=== PATIENT | male | born 1980 | race Caucasian/White ===

== ENCOUNTER 2017-05-15 15:02 | Inpatient (IN) | payer OTHER ==
[2017-05-15] MEDS ORDERED: NALOXONE 0.4 MG/ML 1 ML VIAL IV PRN (15:14)
[2017-05-15] MEDS ORDERED: LIDOCAINE 2% INJ 20 MG/ML (20 ML MDV) ONE (15:14)
[2017-05-15] MEDS ORDERED: HEPARIN SODIUM,PORCINE 5,000 UNIT/ML 1 ML VIAL IV STA (15:15)
[2017-05-15] MEDS ORDERED: ATORVASTATIN 80 MG TAB PO STA (15:20)
--- NOTE | 2017-05-15 15:21 | ED ---
General Adult HPI - General Chief complaint: Chest Pain Stated complaint: STEMI Time Seen by Provider: 05/15/17 15:12 Source: patient, EMS Mode of arrival: EMS Limitations: no limitations - History of Present Illness Initial comments: 37-year-old male presenting with chest pressure and diaphoresis. Prehospital EKG, concerning for ST segment elevated [place]. Patient is somewhat lethargic on initial questioning. He denies any vomiting. Denies abdominal pain. He reported EMS he did have some right shoulder pain. No cough. No fever or chills. Pain began approximately 30 minutes prior to arrival. - Related Data Home Medications Medication Instructions Recorded Confirmed Cholecalciferol [Vitamin D3] 5,000 unit PO DAILY 05/15/17 05/15/17 Cyanocobalamin [Vitamin B-12 1,000 mcg SQ WEEKLY 05/15/17 05/15/17 Injection] Allergies Allergy/AdvReac Type Severity Reaction Status Date / Time quetiapine [From Seroquel] Allergy Unknown Verified 05/15/17 15:14 Review of Systems ROS Statement: Those systems with pertinent positive or pertinent negative responses have been documented in the HPI. ROS Other: All systems not noted in ROS Statement are negative. Past Medical History Past Medical History: Unable to Obtain History of Any Multi-Drug Resistant Organisms: None Reported Past Surgical History: Unable to Obtain Past Psychological History: Bipolar Smoking Status: Current every day smoker Past Alcohol Use History: Unable to Obtain Past Drug Use History: Unable to Obtain General Exam Limitations: no limitations General appearance: alert, lethargic Head exam: Present: atraumatic, normocephalic Eye exam: Present: normal appearance, PERRL ENT exam: Present: normal exam Neck exam: Present: normal inspection. Absent: tenderness, meningismus Respiratory exam: Present: normal lung sounds bilaterally. Absent: respiratory distress, wheezes Cardiovascular Exam: Present: normal rhythm, bradycardia GI/Abdominal exam: Present: soft. Absent: distended, tenderness Extremities exam: Present: normal inspection, full ROM Neurological exam: Present: alert, oriented X3, CN II-XII intact. Absent: motor sensory deficit Psychiatric exam: Present: flat affect Skin exam: Present: warm, dry, intact. Absent: cyanosis, diaphoretic Course Vital Signs 05/15/17 15:06 Temperature 97.1 F L Pulse Rate 52 L Respiratory 18 Rate Blood Pressure 132/70 O2 Sat by Pulse 100 Oximetry EKG Findings - EKG Comments: EKG Findings:: EKG shows sinus bradycardia, ventricular rate of 48, NJ interval 154, QRS duration 92, QTC 438, there is ST segment elevation in 23 and aVF as well as aVL and some ST segment elevation in the lateral precordium. Medical Decision Making - Medical Decision Making 37-year-old male presenting with chest pressure, EKG shows ST segment elevation , this may be early repolarization all the patient is having ongoing chest pressure. Patient does state he has previous WA. He is evaluated by Dr. Sommer in the emergency department. Given the ongoing pain, patient will be taken to the [facility] for coronary angiography. Diagnosis: ST segment elevation WA Disposition Clinical Impression: ST elevation myocardial infarction (STEMI) Disposition: ADMITTED IP TO THIS HOSP Condition: Serious Referrals: Cookie Cordova MD [Primary Care Provider] - 1-2 days Decision to Admit Reason: Admit from EC Decision Date: 05/15/17 Decision Time: 15:21
[2017-05-15] MEDS ORDERED: MIDAZOLAM 2 MG/2 ML VIAL ONE (15:22)
[2017-05-15] MEDS ORDERED: HEPARIN SODIUM 1,000 UN/ML (10ML VL) ONE (15:22)
[2017-05-15] MEDS ORDERED: fentaNYL (PF) 50 MCG/ML 2 ML AMP ONE (15:22)
[2017-05-15] MEDS ORDERED: VERAPAMIL 2.5 MG/ML 2 ML AMP ONE (15:22)
[2017-05-15 15:27] LABS: HCT 44.8 % (39.0-53.0); HGB 15.5 gm/dL (13.0-17.5); MCH 29.2 pg (25.0-35.0); MCHC 34.6 g/dL (31.0-37.0); MCV 84.2 fL (80.0-100.0); Mean Platelet Volume 7.3; Platelet Count 295 k/uL (150-450); RBC 5.32 m/uL (4.30-5.90); RDW 13.1 % (11.5-15.5); WBC 8.2 k/uL (3.8-10.6)
--- NOTE | 2017-05-15 15:27 | XR ---
EXAMINATION TYPE: XR chest 1V portable DATE OF EXAM: 05/15/2017 COMPARISON: NONE HISTORY: chest pain TECHNIQUE: Single frontal view of the chest is obtained. FINDINGS: There is no focal air space opacity, pleural effusion, or pneumothorax seen. The cardiac silhouette size is within normal limits. The osseous structures are intact. IMPRESSION: No acute process.
[2017-05-15 15:32] LABS: ALT 30 U/L (21-72); AST 22 U/L (17-59); Alkaline Phosphatase 70 U/L (38-126); Anion Gap 9 mmol/L; Blood Urea Nitrogen 14 mg/dL (9-20); Calcium 9.2 mg/dL (8.4-10.2); Carbon Dioxide 25 mmol/L (22-30); Chloride 107 mmol/L (98-107); Glucose 89 mg/dL (74-99); Partial Thromboplastin Time 22.4 sec (22.0-30.0); Potassium 4.3 mmol/L (3.5-5.1); Prothrombin Time 9.9 sec (9.0-12.0); Sodium 141 mmol/L (137-145); Total Bilirubin 0.9 mg/dL (0.2-1.3); Total Protein 6.5 g/dL (6.3-8.2)
[2017-05-15] MEDS ORDERED: MIDAZOLAM 2 MG/2 ML VIAL IVP ONE (15:38)
[2017-05-15] MEDS: fentaNYL (PF) 50 MCG/ML 2 ML AMP IVP ONE ×2 (15:39→15:50)
[2017-05-15] MEDS ORDERED: LIDOCAINE 2% INJ 20 MG/ML SQ ONE (15:39)
[2017-05-15] MEDS ORDERED: VERAPAMIL SYRINGE (5 MG/10 ML) INTRAARTER ONE (15:41)
[2017-05-15 15:50] LABS: Creatine Kinase 152 U/L (55-170)
[2017-05-15] MEDS ORDERED: IOHEXOL 350 MG/ML 125ML BOTTLE INJ ONE (15:52)
[2017-05-15] MEDS ORDERED: SODIUM CHLORIDE 0.9% 1,000 ML IV ONE (15:53)
[2017-05-15] MEDS ORDERED: RX INFO: IV CONTRAST WAS GIVEN 1 EACH MISC MISCELLANE PRN (15:58)
[2017-05-15] MEDS ORDERED: SODIUM CHLORIDE 0.9% 1,000 ML IV SCH (16:00)
[2017-05-15 16:01] LABS: Creatine Kinase MB 0.8 ng/mL (0.0-2.4); Troponin I <0.012 ng/mL (0.000-0.034)
--- NOTE | 2017-05-15 17:04 | CC ---
CARDIAC CATHETERIZATION REPORT DATE OF SERVICE: May 15, 2017 PERFORMING PHYSICIAN: Jamir Winters MD, it security administrator. PROCEDURE PERFORMED: 1. Selective right and left coronary angiogram. 2. Left heart catheterization. INDICATION: This is a pleasant 37-year-old gentleman who presented to the hospital with chest discomfort and EKG concerning for acute inferior ST-elevation myocardial infarction. He was seen and evaluated by Dr. Sommer who recommended an emergent heart catheterization. APPROACH: Right radial artery. COMPLICATION: None. LEVEL OF SEDATION: PROCEDURE DESCRIPTION: After obtaining an informed consent, the patient was brought to the cardiac geophysical laboratory supervisor. The right radial artery was cannulated using micropuncture technique, the micropuncture wire passed easily, then I placed a 6-Icelandic sheath in the right radial artery. I did give the patient 2 mg of verapamil IA and 10,000 units of heparin IV. After that, I did selective right and left coronary angiogram using JR4 and JL3.5 catheters. After that I did left heart catheterization using the JL4 which flipped into the LV then I did pullback across aortic valve. The procedure was completed without any complication. SELECTIVE CORONARY ANGIOGRAM: 1. The RCA is a large caliber vessel and it is a dominant vessel. The RCA is angiographically normal. It bifurcates distally into PDA and PLV branches both are angiographically normal. 2. The left main is angiographically normal it bifurcates into the left circumflex and left anterior descending artery. 3. The left circumflex is a large caliber vessel and it is a nondominant vessel. The left circumflex is angiographically normal. In the proximal portion it gives rise into a large OM branch which seems to be angiographically normal. 4. The LAD is angiographically normal. Gives rise into multiple diagonal branches seems to be angiographically normal. HEMODYNAMIC: The left ventricular end-diastolic pressure was about 14 mmHg and no gradient was identified across the aortic valve. CONCLUSION: 1. Normal coronary angiogram. 2. Normal left ventricular end-diastolic pressure. POSTPROCEDURE MANAGEMENT: Medical treatment and follow up with the patient. MMODL / IJN: [id number] /
[2017-05-15] MEDS: ACETAMINOPHEN TAB 325 MG TAB PO PRN (18:00)
--- NOTE | 2017-05-15 21:25 | CONS ---
CONSULTATION A 37-year-old male who was brought in because he was complaining of pressure-like sensation in the chest and nausea and sweating. He was diaphoretic. The pre-hospital ECG showed ST elevations inferolaterally. When he came in, he was still complaining of pressure sensation in the chest and he was taken to the director of labor relations. PAST HISTORY: No diabetes, hypertension, dyslipidemia. SOCIAL HISTORY: He has a history of smoking in the past and he stopped about a year back. MEDICATION LIST: 1. No cardiac medications. 2. Vitamin D3 and. 3. Vitamin B. ALLERGIES: To SEROQUEL. REVIEW OF SYSTEMS: No fever, chills or rigors. No cough or expectoration. No nausea, vomiting or diarrhea, hematuria or dysuria. No strokes, seizures or skin lesions. No musculoskeletal complaints. PAST PSYCHOLOGICAL HISTORY: He has bipolar disorder. EXAMINATION: He is afebrile at 97.1 degrees Fahrenheit, pulse rate in the 50s, blood pressure 132/70 mmHg. Head and neck is normal. Heart sounds normal. Lungs are clear to auscultation. Extremities are warm. No edema. IMPRESSION: 1. Chest pressure associated with diaphoresis. 2. ST elevations noted inferolaterally. 3. This could represent inferolateral myocardial infarction versus early repolarization abnormality. We do not have an old ECG. The patient was complaining of symptoms and therefore the decision made to proceed with coronary angiography to delineate the epicardial coronary anatomy. Dr. Winters was called in for an angiogram. The patient agreed. MMODL / IJN: [id number] /
[2017-05-15 22:24] VITALS: BMI 31.6
--- NOTE | 2017-05-15 23:47 | P.HPIM ---
History of Present Illness H&P Date: 05/15/17 Chief Complaint: Chest pain Patient is a 37-year-old male with a known history of hypertension, hyperlipidemia came to ER with complaints of chest pressure associated with diaphoresis started approximately 30 minutes prior to arrival. Denied any radiation. He reported to EMS that he did have some right shoulder pain. No nausea vomiting or abdominal pain. Patient was distressed when he came to ER. EKG showed inferior leads ST elevation. Cardiology has been consulted and notified. Patient was immediately taken to petroleum refinery laborer. Troponin 1 negative Chest x-ray showed no acute cardio pulmonary process Review of Systems Complete review of systems could not be apparent from the patient. Past Medical History Past Medical History: Unable to Obtain History of Any Multi-Drug Resistant Organisms: None Reported Past Surgical History: Unable to Obtain Past Psychological History: Bipolar Smoking Status: Current every day smoker Past Alcohol Use History: Unable to Obtain Past Drug Use History: Unable to Obtain Medications and Allergies Home Medications Medication Instructions Recorded Confirmed Type Cholecalciferol [Vitamin D3] 5,000 unit PO DAILY 05/15/17 05/15/17 History Cyanocobalamin [Vitamin B-12 1,000 mcg SQ WEEKLY 05/15/17 05/15/17 History Injection] Allergies Allergy/AdvReac Type Severity Reaction Status Date / Time quetiapine [From Seroquel] Allergy Unknown Verified 05/15/17 15:14 Physical Exam Vitals: Vital Signs Temp Pulse Pulse Pulse Resp BP BP 05/15/17 18:43 97.2 F L 62 16 108/75 05/15/17 18:29 55 L 18 113/59 05/15/17 18:15 54 L 18 111/60 05/15/17 17:45 58 L 18 114/70 05/15/17 17:15 66 18 104/70 05/15/17 17:00 46 L 18 108/65 05/15/17 16:45 56 L 18 112/72 05/15/17 16:30 52 L 18 105/64 05/15/17 16:15 98.0 F 52 L 18 117/69 05/15/17 15:24 57 L 18 130/74 05/15/17 15:20 53 L 05/15/17 15:15 53 L 18 123/67 05/15/17 15:06 97.1 F L 52 L 18 132/70 Pulse Ox 05/15/17 18:43 97 05/15/17 18:29 99 05/15/17 18:15 99 05/15/17 17:45 99 05/15/17 17:15 99 05/15/17 17:00 99 05/15/17 16:45 99 05/15/17 16:30 99 05/15/17 16:15 99 05/15/17 15:24 99 05/15/17 15:20 05/15/17 15:15 99 05/15/17 15:06 100 Intake and Output 05/15/17 05/15/17 05/15/17 06:59 14:59 22:59 Intake Total 200 Balance 200 Intake: IV 200 Sodium Chloride 0.9% 1, 100 000 ml @ 100 mls/hr IV . Q10H [facility] Rx#:[id number] Other: Weight 108.726 kg Patient Weight 05/16/17 06:59 Weight 108.726 kg PHYSICAL EXAMINATION: Patient is lying in the bed comfortably, mild distress, awake alert and oriented.. HEENT: Normocephalic. Neck is supple. Pupils reactive. Nostrils clear. Oral cavity is moist. Ears reveal no drainage. Neck reveals no JVD, carotid bruits, or thyromegaly. CHEST EXAMINATION: Trachea is central. Symmetrical expansion. Lung carter clear to auscultation and percussion. CARDIAC: Normal S1, S2 with no gallops. No murmurs ABDOMEN: Soft. Bowel sounds normal. No organomegaly. No abdominal bruits. Extremities: reveal no edema. No clubbing or cyanosis Neurologically awake, alert, oriented x3 with well-coordinated movements. No focal deficits noted Skin: No rash or skin lesions. Diaphoretic and clammy Psychiatric: Coperative. Could not be assessed completely Musculoskeletal: No joint swelling or deformity. Normal range of motion. Results CBC & Chem 7: 05/15/17 15:14 05/15/17 15:14 Assessment and Plan Assessment: Acute ST elevated [place] with ST segment elevated and the inferior leads Hypertension Hyperlipidemia History of bipolar disorder Plan: Patient was given aspirin and statin while in the ER. Continue the pain management with morphine and oxygen therapy. Patient was taken to cardiac catheterization. Further recommendations based on the findings and clinical course. Time with Patient: Greater than 30
[2017-05-16] MEDS: ACETAMINOPHEN TAB 325 MG TAB PO PRN (07:52)
[2017-05-16 08:26] VITALS: TEMP 97.6
--- NOTE | 2017-05-16 11:10 | P.PN ---
Subjective Patient is doing well. No chest discomfort no dizziness lightheadedness no palpitations. He underwent coronary angiography via the right radial arterial without. And circulation within normal limits Afebrile 97.6F, pulse rate in the 50s respirations normal blood pressure 119/ 73 mmHg Breath sounds are normal bilaterally No rhonchi no crackles Heart sounds S1 and S2 are normal no murmurs or gallops no rub Abdomen soft nontender Extremities warm no edema White count normal hemoglobin normal electrolytes normal troponin normal MD and creatinine normal Test x-ray normal Impression Patient admitted with chest pressure and diaphoresis and twelve-lead ECG showed ST elevation inferolaterally. Normal cardiac angiogram Therefore This ECG represents a normal variant, early repolarization abnormality and does not represent an acute myocardial infarction Circulation within normal limits in the right upper extremity. From a cardiac standpoint the patient will be discharged home Objective - Vital Signs Vital signs: Vital Signs Temp 97.6 F 05/16/17 08:00 Pulse 48 L 05/16/17 08:00 Resp 14 05/16/17 08:00 BP 119/73 05/16/17 08:00 Pulse Ox 97 05/16/17 08:00 Intake & Output 05/15/17 05/16/17 05/16/17 18:59 06:59 18:59 Intake Total 200 400 120 Balance 200 400 120 Weight 108.726 kg 106 kg Intake: IV 200 400 Sodium Chloride 0.9% 1, 100 400 000 ml @ 100 mls/hr IV . Q10H [facility] Rx#:[id number] Oral 120 Other: Voiding Method Toilet Toilet # Voids 2 - Labs CBC & Chem 7: 05/15/17 15:14 05/15/17 15:14
[2017-05-16 12:04] VITALS: BP 114/64; PULSE 45; RESP 18
--- NOTE | 2017-05-16 12:39 | P.DS ---
Providers Date of admission: 05/15/17 15:15 Expected date of discharge: 05/16/17 Attending physician: Pat Ramos Consults: 05/15/17 15:14 Consult Physician Stat Consulting Provider: Nic Sommer Reason/Comments: STEMI Do you want consulting provider notified?: Already Contacted Primary care physician: Cookie Zucker [facility] Course: Discharge diagnosis Acute ST elevated [place] with ST segment elevated and the inferior leads. Cardiac catheterization showed normal coronaries. Likely normal variant early repolarization EKG changes Hypertension Hyperlipidemia History of bipolar disorder Hospital course Patient is a 37-year-old male with a known history of hypertension, hyperlipidemia came to ER with complaints of chest pressure associated with diaphoresis started approximately 30 minutes prior to arrival. Denied any radiation. He reported to EMS that he did have some right shoulder pain. No nausea vomiting or abdominal pain. Patient was distressed when he came to ER. EKG showed inferior leads ST elevation. Cardiology has been consulted and notified. Patient was immediately taken to slab installer. Troponin 1 negative Chest x-ray showed no acute cardio pulmonary process Patient was given aspirin and statin while in the ER. Continued the pain management with morphine and oxygen therapy. Patient was taken to cardiac catheterization. Cardiac catheterization showed normal coronaries. Patient was seen by Dr. Paz and has EKG changes are more likely normal variant early repolarization rather than acute ischemic changes. Otherwise patient denied any complaint of chest pain or shortness of breath today. Feels a little weak. Denied any other complaints. Patient is stable to be discharged home today PHYSICAL EXAMINATION: Patient is lying in the bed comfortably, no acute distress, awake alert and oriented.. HEENT: Normocephalic. Neck is supple. Pupils reactive. Nostrils clear. Oral cavity is moist. Ears reveal no drainage. Neck reveals no JVD, carotid bruits, or thyromegaly. CHEST EXAMINATION: Trachea is central. Symmetrical expansion. Lung carter clear to auscultation and percussion. CARDIAC: Normal S1, S2 with no gallops. No murmurs ABDOMEN: Soft. Bowel sounds normal. No organomegaly. No abdominal bruits. Extremities: reveal no edema. No clubbing or cyanosis Neurologically awake, alert, oriented x3 with well-coordinated movements. No focal deficits noted Skin: No rash or skin lesions. Psychiatric: Coperative. Nonsuicidal Musculoskeletal: No joint swelling or deformity. Normal range of motion. Vital Signs 05/15/17 05/15/17 05/15/17 15:06 15:15 15:20 Temperature 97.1 F L Pulse Rate 52 L 53 L Pulse Rate [ 53 L Medical Charge Entry Specialist ] Pulse Rate [ Pulse Oximetery ] Respiratory 18 18 Rate Blood Pressure 132/70 123/67 Blood Pressure [Left Arm Sitting] O2 Sat by Pulse 100 99 Oximetry 05/15/17 05/15/17 05/15/17 15:24 16:15 16:30 Temperature 98.0 F Pulse Rate 57 L Pulse Rate [ Medical Charge Entry Specialist ] Pulse Rate [ 52 L 52 L Pulse Oximetery ] Respiratory 18 18 18 Rate Blood Pressure 130/74 Blood Pressure 117/69 105/64 [Left Arm Sitting] O2 Sat by Pulse 99 99 99 Oximetry 05/15/17 05/15/17 05/15/17 16:45 17:00 17:15 Temperature Pulse Rate Pulse Rate [ Medical Charge Entry Specialist ] Pulse Rate [ 56 L 46 L 66 Pulse Oximetery ] Respiratory 18 18 18 Rate Blood Pressure Blood Pressure 112/72 108/65 104/70 [Left Arm Sitting] O2 Sat by Pulse 99 99 99 Oximetry 05/15/17 05/15/17 05/15/17 17:45 18:15 18:29 Temperature Pulse Rate Pulse Rate [ Medical Charge Entry Specialist ] Pulse Rate [ 58 L 54 L 55 L Pulse Oximetery ] Respiratory 18 18 18 Rate Blood Pressure Blood Pressure 114/70 111/60 113/59 [Left Arm Sitting] O2 Sat by Pulse 99 99 99 Oximetry 05/15/17 05/15/17 05/16/17 18:43 19:43 00:00 Temperature 97.2 F L 98.5 F 97.4 F L Pulse Rate Pulse Rate [ Medical Charge Entry Specialist ] Pulse Rate [ 62 51 L 51 L Pulse Oximetery ] Respiratory 16 16 16 Rate Blood Pressure Blood Pressure 108/75 107/65 111/63 [Left Arm Sitting] O2 Sat by Pulse 97 98 96 Oximetry 05/16/17 05/16/17 05/16/17 04:00 08:00 12:00 Temperature 97.6 F Pulse Rate Pulse Rate [ Medical Charge Entry Specialist ] Pulse Rate [ 45 L 48 L 45 L Pulse Oximetery ] Respiratory 14 14 18 Rate Blood Pressure Blood Pressure 94/52 119/73 114/64 [Left Arm Sitting] O2 Sat by Pulse 95 97 97 Oximetry Patient Condition at Discharge: Stable Plan - Discharge Summary New Discharge Prescriptions: Continue Cyanocobalamin [Vitamin B-12 Injection] 1,000 mcg SQ WEEKLY Cholecalciferol [Vitamin D3] 5,000 unit PO DAILY Discharge Medication List Cholecalciferol [Vitamin D3] 5,000 unit PO DAILY 05/15/17 [History] Cyanocobalamin [Vitamin B-12 Injection] 1,000 mcg SQ WEEKLY 05/15/17 [History] Follow up Appointment(s)/Referral(s): Nic Sommer MD [STAFF PHYSICIAN] - 1 Week Cookie Cordova MD [Primary Care Provider] - 1-2 days Patient Instructions/Handouts: How to Stop Smoking (DC), Heart Healthy Diet (DC ), After Radial Heart Catheterization (GEN) Activity/Diet/Wound Care/Special Instructions: Patient may go home from a cardiac standpoint Discharge Disposition: HOME SELF-CARE
--- NOTE | 2017-05-16 14:31 | CDI ---
Documentation Clarification Form Date: 05/16/2017 CDS: Rosie Aranda, CCS, CCDS Admit Date: 05/15/2017 Patient Name: Kingsley Grace ATTENTION: The Clinical Documentation Specialists (CDI) and [facility] Coding Staff appreciate your assistance in clarifying documentation. Please respond to the clarification below the line at the bottom and electronically sign. The CDI & [facility] Coding staff will review the response and follow-up if needed. Please note: Queries are made part of the Legal Health Record. If you have any questions, please contact the author of this message via ITS. Dr. Ramos: Per the DC Summary: Acute STEMI. Cardiac catheterization showed normal coronaries. likely normal variant early repolarization EKG changes. Patient History/Risk Factors: Hypertension, Smoker. Clinical Indicators: Troponin: negative. EKG Results: R 54 abnormal EKG Treatment: LHC, IV Narcan, IV Heparin, IV fl 100. Cardiology In order to capture the severity of condition and necessary documentation specificity, please clarify: STEMI Ruled in Ruled out Unable to determine Other Condition, please specify Please continue to document in your progress notes and discharge summary in order to capture severity of illness and risk of mortality. Include clinical findings that support your diagnosis. Ruled out ST elevated HI MTDD
== END 2017-05-16 15:49 | disposition home or self-care (01) | DRG 287 ==
LOC: EC 15:02 → 6ICU 15:15 → EC 15:26 → 6SEL 16:59
PROVIDERS: ADMIT Internal Medicine; ATTEND Internal Medicine
PROC: B2111ZZ Fluoroscopy of Multiple Coronary Arteries using Low Osmolar Contrast (ICD-10-PCS; 2017-05-15)
PROC: 4A023N7 Measurement of Cardiac Sampling and Pressure, Left Heart, Percutaneous Approach (ICD-10-PCS; principal; 2017-05-15 12:30)
DX: R07.9 Chest pain, unspecified (principal); E78.5 Hyperlipidemia, unspecified; F17.200 Nicotine dependence, unspecified, uncomplicated; F31.9 Bipolar disorder, unspecified; I10 Essential (primary) hypertension; Z79.899 Other long term (current) drug therapy; Z88.8 Allergy status to other drugs, medicaments and biological substances; Z71.6 Tobacco abuse counseling
CPT/HCPCS: 36415; 71045; 80053; 82550; 82553; 84484; 85027; 85610; 85730; 93005; 93458; 96374; 99285

== ENCOUNTER 2017-05-26 15:46 | Inpatient (IN) | payer MEDICAID, OTHER ==
--- NOTE | 2017-05-26 16:28 | ED ---
General Adult HPI - General Chief complaint: Psychiatric Symptoms Stated complaint: Mental Health Eval Time Seen by Provider: 05/26/17 15:57 Source: patient, police, RN notes reviewed Mode of arrival: ambulatory Limitations: no limitations - History of Present Illness Initial comments: Patient is a pleasant 37-year-old male presenting to the emergency department for mental health evaluation. Patient states he was forced to come here and is unclear why. Patient admits to having a history of mental health problems however feels he is doing fine at this point. Patient states he is not currently supposed to be on any medications. No hallucinations. No suicidal or homicidal thoughts. No physical complaints. No alcohol or street drug use. - Related Data Home Medications Medication Instructions Recorded Confirmed Cholecalciferol [Vitamin D3] 5,000 unit PO DAILY 05/15/17 05/26/17 Cyanocobalamin [Vitamin B-12 1,000 mcg SQ WEEKLY 05/15/17 05/26/17 Injection] Ciprofloxacin HCl [Cipro] 250 mg PO Q12HR 05/26/17 05/26/17 Allergies Allergy/AdvReac Type Severity Reaction Status Date / Time quetiapine [From Seroquel] Allergy Unknown Verified 05/26/17 16:13 Review of Systems ROS Statement: Those systems with pertinent positive or pertinent negative responses have been documented in the HPI. ROS Other: All systems not noted in ROS Statement are negative. Constitutional: Denies: fever Eyes: Denies: eye pain ENT: Denies: ear pain Respiratory: Denies: cough Cardiovascular: Denies: chest pain Endocrine: Denies: fatigue Gastrointestinal: Denies: abdominal pain Genitourinary: Denies: dysuria Musculoskeletal: Denies: back pain Skin: Denies: rash Neurological: Denies: headache Past Medical History Past Medical History: Unable to Obtain History of Any Multi-Drug Resistant Organisms: None Reported Past Surgical History: Unable to Obtain Additional Past Anesthesia/Blood Transfusion Reaction / Comment(s): pt states he has never had a blood transfusion or anesthesia Past Psychological History: Bipolar Smoking Status: Current every day smoker Past Alcohol Use History: Unable to Obtain Past Drug Use History: Unable to Obtain General Exam Limitations: no limitations General appearance: alert, in no apparent distress Head exam: Present: atraumatic Eye exam: Present: normal appearance Neck exam: Present: normal inspection Respiratory exam: Present: normal lung sounds bilaterally Cardiovascular Exam: Present: regular rate, normal rhythm GI/Abdominal exam: Present: soft. Absent: tenderness Extremities exam: Present: normal inspection Neurological exam: Present: alert Psychiatric exam: Present: flat affect Skin exam: Present: normal color Course Vital Signs 05/26/17 15:50 Temperature 97.7 F Pulse Rate 78 Respiratory 18 Rate Blood Pressure 121/62 O2 Sat by Pulse 99 Oximetry Medical Decision Making - Medical Decision Making Patient was seen by mental health services, who will admit. Positive clinical certificate completed. - Lab Data Lab Results 05/26/17 Range/Units 17:10 Urine Opiates Screen Not Detected (NotDetected) Ur Oxycodone Screen Not Detected (NotDetected) Urine Methadone Screen Not Detected (NotDetected) Ur Propoxyphene Screen Not Detected (NotDetected) Ur Barbiturates Screen Not Detected (NotDetected) U Tricyclic Antidepress Not Detected (NotDetected) Ur Phencyclidine Scrn Not Detected (NotDetected) Ur Amphetamines Screen Not Detected (NotDetected) U Methamphetamines Scrn Not Detected (NotDetected) U Benzodiazepines Scrn Not Detected (NotDetected) Urine Cocaine Screen Not Detected (NotDetected) U Marijuana (THC) Screen Detected H (NotDetected) Disposition Clinical Impression: Acute psychosis Disposition: TRANSFER TO PSYCH HOSP/UNIT Referrals: None,Stated [Primary Care Provider] - 1-2 days Decision Time: 17:59
[2017-05-26 17:41] LABS: Amphetamine Screen,Urine Not Detected (NotDetected); Barbiturate Screen,Urine Not Detected (NotDetected); Benzodiazepines Screen,Urine Not Detected (NotDetected); Cocaine Screen,Urine Not Detected (NotDetected); Methadone Screen, Urine Not Detected (NotDetected); Opiate Screen,Urine Not Detected (NotDetected); Oxycodone Screen, Urine Not Detected (NotDetected); Phencyclidine Screen,Urine Not Detected (NotDetected); Tricyclic Antidepressant,Urine Not Detected (NotDetected); Urn Cannabinoid Scrn Detected (NotDetected)
[2017-05-26] MEDS ORDERED: MAGNESIUM HYDROXIDE 2,400 MG/10 ML CUP PO PRN (18:11)
[2017-05-26] MEDS ORDERED: MAG HYDROX/AL HYDROX/SIMETH 30 ML CUP PO PRN (18:11)
[2017-05-26] MEDS ORDERED: ZIPRASIDONE 20 MG VIAL IM PRN (18:11)
[2017-05-26] MEDS ORDERED: ACETAMINOPHEN TAB 325 MG TAB PO PRN (18:11)
[2017-05-26 18:37] LABS: Amorphous Sediment,Urine Many /hpf; Appearance,Urine Turbid (Clear); Bilirubin,Urine Negative (Negative); Blood,Urine Negative (Negative); Color,Urine Yellow; Glucose,Urine (UA) Negative (Negative); Ketones,Urine Negative (Negative); Leukocyte Esterase,Urine Negative (Negative); Mucus,Urine Rare /hpf; Nitrite,Urine Negative (Negative); PH, Urine 7.5 (5.0-8.0); Protein,Urine Negative (Negative); RBC,Urine 12 /hpf (0-5); Specific Gravity,Urine 1.017 (1.001-1.035); Squamous Epithelial Cell,Urine <1 /hpf (0-4)
[2017-05-26] MEDS ORDERED: ZIPRASIDONE 20 MG VIAL IM ONE (19:17)
[2017-05-26] MEDS ORDERED: LORazepam 2 MG/ML INJ ONE (19:35)
[2017-05-26] MEDS ORDERED: LORazepam 2 MG/ML INJ IM STA (19:38)
[2017-05-26] MEDS: ARIPiprazole 10 MG TAB PO SCH (20:57)
--- NOTE | 2017-05-26 22:30 | P.PN ---
Progress Note - Text Progress Note Date: 05/26/17 patient continues to be agitated and aggressive , threatening staff and other residents. He was medicated and calmed down, and currently sleeping. I will reattempt to see him in the morning
[2017-05-27] MEDS: ARIPiprazole 10 MG TAB PO SCH ×2 (09:07→20:33)
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
--- NOTE | 2017-05-27 12:12 | P.HPMEDMHU ---
History of Present Illness H&P Date: 05/27/17 Chief Complaint: schizophrenia 37 y/o male admitted with psychosis. denies any medical problems Review of Systems All systems: negative Constitutional: Denies chills, Denies fever Eyes: denies blurred vision, denies pain Ears, nose, mouth and throat: Denies headache, Denies sore throat Cardiovascular: Denies chest pain, Denies shortness of breath Respiratory: Denies cough Gastrointestinal: Denies abdominal pain, Denies diarrhea, Denies nausea, Denies vomiting Musculoskeletal: Denies myalgias Integumentary: Denies pruritus, Denies rash Neurological: Denies numbness, Denies weakness Psychiatric: Denies anxiety, Denies depression Endocrine: Denies fatigue, Denies weight change Past Medical History Past Medical History: Unable to Obtain Additional Past Medical History / Comment(s): denies any medical problems History of Any Multi-Drug Resistant Organisms: None Reported Past Surgical History: Unable to Obtain Additional Past Anesthesia/Blood Transfusion Reaction / Comment(s): pt states he has never had a blood transfusion or anesthesia Past Psychological History: Bipolar Smoking Status: Current every day smoker Past Alcohol Use History: Unable to Obtain Past Drug Use History: Unable to Obtain Medications and Allergies Home Medications Medication Instructions Recorded Confirmed Type Cholecalciferol [Vitamin D3] 5,000 unit PO DAILY 05/15/17 05/26/17 History Cyanocobalamin [Vitamin B-12 1,000 mcg SQ WEEKLY 05/15/17 05/26/17 History Injection] Ciprofloxacin HCl [Cipro] 250 mg PO Q12HR 05/26/17 05/26/17 History Allergies Allergy/AdvReac Type Severity Reaction Status Date / Time quetiapine [From Seroquel] Allergy Unknown Verified 05/26/17 16:13 Physical Exam Vitals: Vital Signs Temp Pulse Pulse Resp BP BP Pulse Ox 05/26/17 18:54 98.7 F 62 16 126/82 99 05/26/17 18:10 98.6 F 76 18 128/80 98 05/26/17 15:50 97.7 F 78 18 121/62 99 Intake and Output 05/26/17 05/27/17 05/27/17 22:59 06:59 14:59 Other: Weight 101.605 kg 102 kg - EENT Eyes: EOMI, PERRLA ENT: normal oropharynx - Neck Neck: no lymphadenopathy, no rigidity - Respiratory Respiratory: bilateral: CTA, negative: rales, rhonchi, wheezing - Cardiovascular Rhythm: regular Heart sounds: normal: S1, S2 - Gastrointestinal General gastrointestinal: normal bowel sounds, no tenderness - Integumentary Integumentary: normal, no rash - Neurologic Neurologic: CNII-XII intact - Musculoskeletal Musculoskeletal: gait normal - Psychiatric Psychiatric: A&O x's 3, appropriate affect Cranial Nerve Examination - Cranial Nerves Cranial Nerve II- Optic: Intact Cranial Nerve III- Oculomotor: Intact Cranial Nerve IV- Trochlear: Intact Cranial Nerve V- Trigeminal: Intact Cranial Nerve - Abducens: Intact Cranial Nerve VII- Facial: Intact Cranial Nerve VIII- Auditory: Intact Cranial Nerve IX- Glossopharyngeal: Intact Cranial Nerve X- Vagus: Intact Cranial Nerve XI- Accessory: Intact Cranial Nerve XII- Hypoglossal: Intact Results Labs: Abnormal Lab Results - Last 24 Hours (Table) 05/26/17 05/26/17 Range/Units 17:10 17:10 Urine RBC 12 H (0-5) /hpf Amorphous Sediment Many H (None) /hpf Urine Mucus Rare H (None) /hpf U Marijuana (THC) Screen Detected H (NotDetected) Assessment and Plan (1) Acute psychosis Current Visit: Yes Status: Acute Code(s): F23 - BRIEF PSYCHOTIC DISORDER SNOMED Code(s): 52360771
[2017-05-28] MEDS: ARIPiprazole 10 MG TAB PO SCH ×2 (09:26→21:30)
--- NOTE | 2017-05-28 12:24 | P.PN ---
Progress Note - Text Progress Note Date: 05/28/17 Interval History: Patient is a 37-year-old male who was admitted, he was seen today and he is unable to tell me why he was admitted other than that he did admit to standing from the police station and was screaming. Patient denies that he thought people had stolen his items, that he had filed reports that the police station. Patient states that in 1997 he was charged with aggravated stocking, he states at that time he was using drugs and alcohol, initially spent 1 year in senior living then one year at [facility] and then one year in senior living again. He states after he was charged he was then sent to [place] [facility] and then ultimately sent back to [facility] and was discharged in 2003. Patient states that after that time. He continued on medication and then in 2006 moved to [place] to the 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 He states at that time he was and had a son and eventually her and return to this area in 2015 because he was not able to support himself there and returned here to live with his father. His son went to live with his mother. Patient states that he has been on medications Abilify, Wellbutrin and states that he has felt depressed in the past and has attempted suicide in the past. Patient states that he wanted to stop the medications because they blocked his thoughts , he cannot think clearly at a make him feel more anxious. He wanted to use medical marijuana to see if it would treat the pain in his back. Patient has not been on medications for several months from [facility]. Patient is unable to tell me why he thought the medication made his thinking problematic, why it blocked his art when he had been on these medications for a number of years without difficulty. Patient states that he tried to hurt himself prior to coming to the hospital by trying to break his neck with his own hands. Patient states he's been on multiple other medications in the past all with side effects and is unable to take any of them. He states he does not want to restart the Abilify or the Wellbutrin and wants to do things naturally. Mental Status: Appearance/Attitude: Patient is appropriately dressed, was sitting at a table and stared straight ahead during the entire interview making no eye contact and was cooperative Behavior: Patient does not exhibit any psychomotor agitation or retardation. Speech/Language: Patient's speech is spontaneous and of normal volume and rhythm and he is coherent Thought Process: Patient is goal-directed, no evidence of loose association or flight of ideas. Thought Content: Patient denies auditory or visual hallucination, states that he was not feeling paranoid did not think people were stealing his property but does admit that he was outside the police station screen. Patient states that he is not able to do his art work and felt that the medications were blocking his thoughts and that this is the reason he stopped them and does not wish to restart them. Patient states that he is not sleeping well. Suicidal/Homicidal Ideation: Patient denies any current suicidal ideation but states that he is feeling depressed and denies current homicidal ideation Sensorium/Cognition: Patient is alert and oriented to person, place, and time and recent and remote memory are grossly intact Mood/Affect: Patient's mood is depressed, he states he is also feeling anxious and his affect is blunted Insight/Judgment: Patient's insight and judgment are impaired Assessment: Patient was admitted on a petition filed by [facility] where he presented to his last appointment disorganized, paranoid stating that things were being stolen from him and had apparently gone to the police station following reports that his identity was stolen, his belongings were being stolen and was also outside the police station screaming. Patient had discontinued his medication 2 months earlier secondary to side effects which he reported to me were blocking his thoughts and making him anxious. Patient states that he is feeling depressed, had felt suicidal and tried to break his neck with his hands prior to his admission but states he does not understand why he's been admitted to the hospital. Patient denies that he is having any paranoid ideation and denies that he thought anyone was stealing his identity or his belongings. Patient is refusing medication stating that he does not want any medication, wants to try medical marijuana to see if that assists with his back pain. Patient was holding a folder which is covered with writing, reported by staff that the patient is also writing on his body, and patient continues to insist that he does not need medication and does not understand why he's been admitted to the hospital. Plan: Patient was ordered Abilify 10 mg twice a day which he is refused, his deferral is tomorrow and patient continues to state that he does not require medication and does not understand why he is in the hospital and thinks that medical marijuana may be the answer for his back pain. Patient continues to require hospitalization to further stay stabilize his mood.
[2017-05-28] MEDS: IBUPROFEN 200 MG TAB PO PRN (17:59)
[2017-05-29] MEDS: ARIPiprazole 10 MG TAB PO SCH ×3 (08:03→22:37)
--- NOTE | 2017-05-29 14:00 | P.PN ---
Progress Note - Text Progress Note Date: 05/29/17 Interval History: Patient is a 37-year-old male who was seen today and he reports that he did not defer his hearing. Patient states that he is still not interested in taking medication because he is trying to seek a natural treatment , he then discusses using medical marijuana to treat his pain. Patient states that he doesn't understand why he is in the hospital, denies that he refused medication at [facility] stating that he and the doctor agreed to natural alternatives and his discontinuing his Abilify and Wellbutrin. Patient states that he wants to change to a natural alternative because the Abilify was blocking his thoughts. He states that it also made him very anxious the next morning after he had taken it, stating that the anxiety was more that he could tolerate. Patient refuses to take medication at this time, states that he is not paranoid states that he is not hearing voices and states that he doesn't need to be in the hospital. He denies any suicidal ideation at this time. Mental Status: Appearance/Attitude: Patient is dressed in 2 hospital gowns and pants, makes intermittent eye contact and is superficially cooperative Behavior: Patient does not exhibit any psychomotor agitation or retardation. Speech/Language: Patient's speech is spontaneous, of normal volume, without inflection and he is coherent Thought Process: Patient responds to questions, is not exhibit any loose association or flight of ideas. Patient's responses are limited and provide little elaboration Thought Content: Patient denies auditory or visual hallucinations and denies any paranoid or delusional ideation. Patient states that he is sleeping at night and eating. Patient reports that he has no complaints other than pain. Suicidal/Homicidal Ideation: Patient denies any current suicidal or homicidal ideation. Sensorium/Cognition: He is alert and oriented to person, place, time and his recent and remote memory are grossly intact Mood/Affect: Patient's mood is guarded and his affect is flat Insight/Judgment: Patient's insight and judgment are impaired Assessment: Patient states that he and his doctor at [facility] agreed to discontinue the Abilify and look for natural alternatives, patient denies that he was feeling paranoid and denies that he refused medication. Per the patient's petition patient presented to [facility] in a disorganized fashion, had received information from the police department about his making multiple reports regarding stolen property, computers and was found outside screaming and yelling. Patient continues to insist that he does not require medication and is looking for a natural alternative such as medical marijuana to treat his pain, when asked if he thinks this will treat his other symptoms he states yes. Patient refuses medication stating that blocked his thinking and made him anxious. When questioned regarding his screaming and yelling the other day on the unit and barricading himself in the bathroom he stated " who wouldn't do that if they were admitted here". 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 Patient is not attending groups or activities and is mostly isolative on the unit. Plan: Patient's hearing will be held on June 06, patient continues to refuse medication were discussed other medications, patient continues to require hospitalization to stabilize his mood and target his psychotic symptoms
[2017-05-29] MEDS: IBUPROFEN 200 MG TAB PO PRN (22:36)
[2017-05-30] MEDS: ARIPiprazole 10 MG TAB PO SCH ×2 (08:34→19:53)
[2017-05-30] MEDS: IBUPROFEN 200 MG TAB PO PRN ×2 (09:44→19:53)
--- NOTE | 2017-05-30 13:19 | P.PN ---
Progress Note - Text Progress Note Date: 05/30/17 Interval History: Patient is a 37-year-old male who was seen today, patient reports that he took the medication last evening and this morning referring to [place]. Patient discussed that he was not hearing voices, was no longer feeling suicidal and thought that his thoughts were clearer this morning. He again discussed his complaints of side effects from the Abilify when taking 30 mg in the morning, describing that he felt paralyzed in the morning after. Patient reports that he slept fairly well last evening. Patient had no reports of side effects from the Abilify at this time. Mental Status:Appearance/Attitude: Patient is appropriately dressed, made better eye contact and was cooperative Behavior: Patient did not display any psychomotor agitation or retardation, he was carrying a folder however this time the full were was not covered with writing or notes but contained his art work Speech/Language: Patient's speech was spontaneous, soft voice with normal rhythm and was coherent Thought Process: Patient was goal-directed there was no evidence of loose association or flight of ideas and he was not circumstantial or tangential. Thought Content: Patient denied auditory or visual hallucinations and no delusions or paranoid ideation were elicited. When asked about his behavior in front of the police station or filing multiple reports at the police station patient states he does not recall those episodes. Patient states that he is not having racing thoughts at this time and his thoughts are more organized. Patient reports that he is sleeping and eating well. Suicidal/Homicidal Ideation: Patient denies any current suicidal or homicidal ideation. Sensorium/Cognition: Patient is alert and oriented to person, place, and time and his recent and remote memory are grossly intact. 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 Patient states he does not recall screaming in front of the police station or why he would've been making multiple police reports. Patient states that his thoughts are more organized today, he denies racing thoughts and denied any suicidal ideation and denied paranoid ideation. Patient reports that he has been taking the medication and does feel that it has been helpful to him. When the patient discussed his back pain he roots stated that he probably should see a chiropractor on discharge and did not bring up using marijuana or seeking alternative therapy. Patient was attending groups today and was participating appropriately in group therapy. Plan: Patient will continue on Abilify 10 mg twice a day and he and I discussed seeing if the split dosing decreases the side effects. Patient did not feel that he wanted to restart Wellbutrin stating that he was not feeling that depressed at this time. Patient was encouraged to continue taking his medication and continues to require hospitalization to further stabilize his mood. Patient was agreeable to having his blood work done and so laboratory studies were reordered as well as a repeat urinalysis.
[2017-05-30 17:32] LABS: Appearance,Urine Clear (Clear); Bilirubin,Urine Negative (Negative); Blood,Urine Negative (Negative); Color,Urine Light Yellow; Glucose,Urine (UA) Negative (Negative); Ketones,Urine Negative (Negative); Leukocyte Esterase,Urine Negative (Negative); Nitrite,Urine Negative (Negative); PH, Urine 6.5 (5.0-8.0); Protein,Urine Negative (Negative); Specific Gravity,Urine 1.005 (1.001-1.035); Urobilinogen,Urine <2.0 mg/dL (<2.0)
[2017-05-31] MEDS: IBUPROFEN 200 MG TAB PO PRN ×2 (07:47→17:39)
[2017-05-31 10:21] VITALS: BMI 29.6
[2017-05-31 10:36] LABS: Basophils % (A) 1 %; Eosinophils # (A) 0.1 k/uL (0-0.7); Eosinophils % (A) 2 %; HCT 48.8 % (39.0-53.0); HGB 17.4 gm/dL (13.0-17.5); Lymphocytes # (A) 2.1 k/uL (1.0-4.8); Lymphocytes % (A) 34 %; MCH 29.3 pg (25.0-35.0); MCHC 35.6 g/dL (31.0-37.0); MCV 82.2 fL (80.0-100.0); Mean Platelet Volume 6.3; Monocytes # (A) 0.4 k/uL (0-1.0); Monocytes % (A) 7 %; Neutrophils # (A) 3.4 k/uL (1.3-7.7); Neutrophils % (A) 54 %; Platelet Count 312 k/uL (150-450); RBC 5.94 m/uL (4.30-5.90); RDW 12.9 % (11.5-15.5); WBC 6.2 k/uL (3.8-10.6)
[2017-05-31 11:08] LABS: ALT 25 U/L (21-72); AST 20 U/L (17-59); Albumin 4.3 g/dL (3.5-5.0); Alkaline Phosphatase 70 U/L (38-126); Anion Gap 16 mmol/L; Blood Urea Nitrogen 11 mg/dL (9-20); Calcium 10.1 mg/dL (8.4-10.2); Carbon Dioxide 25 mmol/L (22-30); Chloride 102 mmol/L (98-107); Cholesterol 141 mg/dL (<200); Glucose 112 mg/dL (74-99); HDL Cholesterol 37 mg/dL (40-60); LDL Cholesterol,Calculated 72 mg/dL (0-99); Potassium 4.1 mmol/L (3.5-5.1); Sodium 143 mmol/L (137-145); Total Bilirubin 0.7 mg/dL (0.2-1.3); Triglycerides 162 mg/dL (<150)
--- NOTE | 2017-05-31 11:47 | P.PN ---
Progress Note - Text Progress Note Date: 05/31/17 Interval History: Patient is a 37-year-old male who was seen today and he reports that he slept fairly well last night but reported that he has been worried about things from the past, his use of hallucinogens in the past and flashbacks occurring and states that he is trying to focus on more positive aspects. Patient states that he is no longer feeling paranoid, not hearing voices and no suicidal thoughts. He states he notices mood goes up and down still but he is feeling less depressed. Patient states that he is not feeling any manic symptoms, no racing thoughts. He requested yesterday afternoon that I increase his Abilify to 20 mg in the morning which I did and he states that he is feeling some anxiety but it is more about worries from the past than medication side effects. Patient states he did not want to start Wellbutrin or BuSpar because he felt that they clouded his thinking. Mental Status:Appearance/Attitude: Patient is appropriately dressed, makes good eye contact and is cooperative. Behavior: Patient does not exhibit any psychomotor agitation or retardation. Speech/Language: Patient is spontaneous, speech is of normal volume and rhythm and he is coherent. Thought Process: Patient is goal-directed there is no evidence of loose associations or flight of ideas and he is not circumstantial or tangential. Thought Content: Patient denies any auditory or visual hallucinations and no delusions or paranoid ideation were elicited. Patient states that he is not having racing thoughts, is no longer feeling paranoid and states that he slept fairly well last evening but is bothered by concerns of flashbacks from his use of hallucinogens. Patient states that he also at times finds himself ruminating about choices and decisions that he made in the past that did not work out well. He reports that his appetite is good. Suicidal/Homicidal Ideation: Patient denies any current suicidal or homicidal ideation. Sensorium/Cognition: Patient is alert and oriented to person, place, time and his recent and remote memory are grossly intact Mood/Affect: Patient's mood is euthymic and his affect is appropriate Insight/Judgment: Patient's insight and judgment are markedly improved Assessment: Patient has shown improvement on the restart of Abilify, requesting it be increased to 20 mg in the morning and 10 at night to see if splitting the dose would decrease some of the side effects that he is had in the past. Patient has also been agreeable to having his blood work done. He reports that his mood is still up and down a little bit but is much more stable than it was, patient is much less depressed, he is much more organized in his thinking and his affect is bright. Patient talks about positive aspects of his life and making future plans. Patient states he spoke with his brother who is offered to assist the patient in managing his finances as well as finding the patient a place to live. Patient reported no side effects from the medication and none were observed. I also spoke with the patient regarding calling his surveillance monitor and asking for a deferral and he was agreeable to do so. Plan: Patient will continue on Abilify 20 mg in the morning and 10 mg at bedtime , his UA showed no evidence of an infection in his blood work revealed no significant abnormalities. Patient continues to require hospitalization to further stabilize his mood. Patient declines restarting BuSpar or Wellbutrin due to it clouding his thinking.
[2017-05-31] MEDS: ARIPiprazole 10 MG TAB PO SCH (20:54)
[2017-06-01] MEDS: IBUPROFEN 200 MG TAB PO PRN ×2 (08:40→16:33)
--- NOTE | 2017-06-01 12:55 | P.PN ---
Progress Note - Text Progress Note Date: 06/01/17 Interval History: Patient is a 37-year-old male who was seen today and reports that he didn't sleep that well last evening he describes having some unusual dreams regarding his childhood. Patient reports that otherwise he is more focused on the future, working with his brother to assist him in finding an apartment as well as assisting him with his finances. Patient states that he is not having any side effects from the medication. He reports not feeling depressed no suicidal ideation and states his thoughts remain organized. Mental Status: Appearance/Attitude: Patient is appropriately dressed, makes good eye contact and is cooperative. Behavior: Patient does not display any psychomotor agitation or retardation. Speech/Language: Patient's speech is spontaneous and normal volume and rhythm and he is coherent. Thought Process: Patient is goal-directed there is no evidence of loose association or flight of ideas is not circumstantial or tangential. Thought Content: Patient denies any auditory or visual hallucinations and no delusions or paranoid ideation were elicited. Patient states that his thinking is much more organized he denies any racing thoughts. He states that he did not sleep well last evening only about 4 hours and describes having dreams or what he reports memories from his past and states that they are not disturbing and not nightmares. He states that he is trying to focus on more positive things as well as working with his brother to find an apartment when he is discharged. Patient states he only slept 4 hours last night and his appetite is good. Suicidal/Homicidal Ideation: Denies any current suicidal or homicidal ideation. Sensorium/Cognition: Patient is alert and oriented to person, place, and time and his recent and remote memory are grossly intact. Mood/Affect: Patient's mood is euthymic and his affect is appropriate Insight/Judgment: Patient's insight and judgment are adequate Assessment: Patient continues to show improvement, his mood is euthymic and his affect is full. Patient is attending groups and activities and participating appropriately. Patient reports poor sleep last evening only about 4 hours and states that he continues to have these dreams regarding his childhood. Patient' s describes them as not nightmares but vivid dreams. Patient states that he is not having any side effects from the Abilify. Patient was agreeable to signing a deferral and did so today. Plan: Patient will continue on Abilify 20 mg in the morning and 10 mg at bedtime and melatonin 3 mg at bedtime will be added to assist with his sleep. Patient and I discussed discharge on Sunday and he is agreeable to this, he states that he will return to live in his studio until an apartment can be found. Patient continues to require hospitalization through the weekend to further stabilize his mood and improve his sleep.
[2017-06-01] MEDS: MELATONIN 3 MG TABLET PO SCH (21:26)
[2017-06-01] MEDS: ARIPiprazole 10 MG TAB PO SCH (21:26)
[2017-06-02 09:46] LABS: HCT 47.2 % (39.0-53.0); HGB 16.5 gm/dL (13.0-17.5); MCH 29.6 pg (25.0-35.0); MCV 84.7 fL (80.0-100.0); Mean Platelet Volume 6.7; Platelet Count 279 k/uL (150-450); RBC 5.57 m/uL (4.30-5.90); RDW 12.9 % (11.5-15.5); WBC 8.7 k/uL (3.8-10.6)
[2017-06-02 09:55] LABS: ALT 27 U/L (21-72); AST 19 U/L (17-59); Alkaline Phosphatase 75 U/L (38-126); Anion Gap 13 mmol/L; Blood Urea Nitrogen 12 mg/dL (9-20); Calcium 9.5 mg/dL (8.4-10.2); Carbon Dioxide 25 mmol/L (22-30); Chloride 102 mmol/L (98-107); Glucose 110 mg/dL (74-99); Potassium 4.3 mmol/L (3.5-5.1); Sodium 140 mmol/L (137-145); Total Bilirubin 0.8 mg/dL (0.2-1.3); Total Protein 6.7 g/dL (6.3-8.2)
[2017-06-02] MEDS: IBUPROFEN 200 MG TAB PO PRN (10:52)
--- NOTE | 2017-06-02 11:28 | P.PN ---
Subjective Progress Note Date: 06/02/17 Principal diagnosis: Diarrhea Patient is a 37-year-old male with no significant past medical history who is currently in the mental health unit. We are asked evaluate him for nausea, vomiting, diarrhea. Patient seen and examined. He states that starting at about 4 this morning he had diarrhea that was dark black appearing. He then had one episode of emesis that he reports was dark black. He felt lightheaded, and dizzy. He does not have any chest pain, shortness of breath, or palpitations. He had some stomach discomfort. He has greatly improved in the few hours since that time. He also feels slightly dehydrated. He states he believes this is secondary to something he ate his he is already feeling much improved. He does not want any Zofran but would be interested Tums. Objective - Vital Signs Vital signs: Vital Signs Temp 97.6 F 06/02/17 07:22 Pulse 72 06/02/17 07:22 Resp 16 06/02/17 07:22 BP 124/64 06/02/17 07:22 Pulse Ox 99 05/26/17 18:54 - Exam General: non toxic, no distress, appears at stated age Derm: warm, dry Head: atraumatic, normocephalic, symmetric Eyes: EOMI, no lid lag, anicteric sclera Mouth: no lip lesion, mucus membranes dry Cardiovascular: S1S2 reg, no murmur, positive posterior tibial pulse bilateral, Lungs: CTA bilateral, no rhonchi, no rales , no accessory muscle use Abdominal: soft, tender to palpation epigastric, no guarding, no appreciable organomegaly Psych: Alert, oriented, appropriate affect - Labs CBC & Chem 7: 06/02/17 09:04 06/02/17 09:04 Labs: Abnormal Lab Results - Last 24 Hours (Table) 06/02/17 Range/Units 09:04 Glucose 110 H (74-99) mg/dL Assessment and Plan Assessment: Gastritis -Suspect this is secondary to food intolerance -CBC and CMP within normal limits -As needed Tums, patient refused Zofran -Alerted nursing to let us know if he has another episode of vomiting that appears dark black recheck a CBC Schizophrenia -Your psych management Tobacco abuse -Nicotine replacement Thank you for allowing us to participate in the care of this patient. We will follow peripherally. Do not hesitate to contact us with questions. Someone can be reached from the [facility] hospitalist group at all hours of the day at [phone].
[2017-06-02] MEDS: CALCIUM CARBONATE 500 MG CHEWABLE PO PRN ×2 (12:54→17:07)
[2017-06-02] MEDS: ARIPiprazole 10 MG TAB PO SCH (20:20)
[2017-06-02] MEDS: MELATONIN 3 MG TABLET PO SCH (20:21)
--- NOTE | 2017-06-02 21:05 | P.PN ---
Progress Note - Text Progress Note Date: 06/02/17 Patient was seen today. He reports last night he woke up due to feeling sick to stomach and says he is been having loose stools and vomitting. He was seen by medicine today for possible gastritis. Patient says he might have had upset stomach due to melatonin he took last night. He says he does not like taking melatonin any more. He reports doing better otherwise. He denies current symptoms of depression, abilio or psychosis. He reports back pain and stomach pain. He reports he is trying to eat as best as he can. He reports sleeping for six hours. He reports attending and participating in all the unit groups and activities. He denies current suicidal or homicidal ideations. Mental status exam Patient is 37 year old male. He is pleasant and cooperative. He is dressed appropriately and appears in fair grooming and hygiene. His speech and thought process are goal directed. His mood is reported as good and affect appropriate. He denies auditory or visual halluciantions. He denies paranoia and did not appear delusional. He is alert and oriented to time place and person. His insight and judgment are improving. Assessment He has progressed well and most of his admitting symptoms have resolved except for his new onset of possible gastritis. Plan: Patient will continue on Abilify 20 mg in the morning and 10 mg at bedtime and melatonin 3 mg at bedtime . Possible discharge on Sunday Monitor for symptoms.
[2017-06-03 07:13] VITALS: TEMP 98.1
[2017-06-03] MEDS: IBUPROFEN 200 MG TAB PO PRN ×2 (08:29→17:08)
[2017-06-03] MEDS: CALCIUM CARBONATE 500 MG CHEWABLE PO PRN (17:35)
--- NOTE | 2017-06-03 20:36 | P.PN ---
Progress Note - Text Progress Note Date: 06/03/17 Patient was seen today. He reports his room mate kept him awake him awake with is snoring. He reports going to all his groups. He says he is doing fine. He says his anxiety is tolerable. He denies current symptoms of depression, psychosis and abilio. He reports good appetite. Mental status exam Patient is 37 year old male. He is pleasant and cooperative. He is dressed appropriately and appears in fair grooming and hygiene. His speech and thought process are goal directed. His mood is reported as good and affect appropriate. He denies auditory or visual hallucinations. He denies paranoia and did not appear delusional. He is alert and oriented to time place and person. His insight and judgment are improving. Assessment His admitting symptoms have improved significantly. Plan: Patient will continue on Abilify 20 mg in the morning and 10 mg at bedtime and melatonin 3 mg at bedtime . Possible discharge on Sunday Monitor for symptoms.
[2017-06-03] MEDS: MELATONIN 3 MG TABLET PO SCH ×2 (20:41)
[2017-06-03] MEDS: ARIPiprazole 10 MG TAB PO SCH (20:41)
[2017-06-04 06:39] VITALS: BP 100/57; PULSE 53; RESP 18
[2017-06-04] MEDS: IBUPROFEN 200 MG TAB PO PRN (08:29)
--- NOTE | 2017-06-04 08:55 | P.DS ---
Providers Date of admission: 05/26/17 18:08 Expected date of discharge: 06/04/17 Attending physician: Evelyn Barroso MD Consults: 05/26/17 18:11 Consult Physician Routine Consulting Provider: Arden Edmonds Consult Reason/Comments: follow up H & P Do you want consulting provider notified?: Yes Primary care physician: Stated None Hospital Course: Discharge Diagnosis: Bipolar type I disorder, current episode depressed with psychotic features Reason for Admission: Patient is a 37-year-old male who was admitted on an involuntary basis after he was brought to the hospital on a petition from [facility]. Patient had not been compliant with medication and had also started using alcohol again. Patient was poor historian on admission. Patient had apparently been going to the police department and making multiple complaints that belongings were being stolen, his identity was stolen. Patient was also outside the police department screaming and yelling. Patient had not been taking his medication for the last 2 months. Patient reported that he had stopped his medications due to side effects. Patient on admission was refusing medication, denying that he was hearing voices, stated that he was not feeling paranoid and denied that he had been filing complaints at the police department. 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 He did report that he was feeling depressed. Hospital Course: Patient was admitted on an involuntary basis, routine laboratory studies and medical consultation were requested, the patient initially refused lab work but eventually did agree to it. Patient was also placed on routine precautions and group and activity therapy were also ordered. Patient was initially begun on Abilify 10 mg twice a day which she initially refused to take. Patient continued to refuse medication stating that it caused side effects, patient initially requested a court hearing. Patient and I discussed his medications and patient began to take the Abilify 10 mg twice a day and there was noticeable improvement in the patient's mental status. Patient himself requested an increase of Abilify to 20 mg in the morning and continue 10 mg at bedtime. Patient's mood improved significantly, he was no longer feeling depressed and his affect was marshall. Patient was able to notice the improvement himself in his mental status stating that he was able to think clearer, and was no longer reporting that the medication side effects with the reason that he was unable to do his art work. Patient began to attend and participate in groups and activities on the unit and began to do his art work again. Patient was no longer paranoid, he had earlier in the admission been writing down what staff were telling him, writing on his body, he was no longer doing any of those behaviors and was no longer paranoid. Patient reported that he was feeling much better and more stable on the medication and so signed a deferral. Patient was able to discuss his need to avoid alcohol once he was discharged, could see the reason to continue taking his medication. Patient declined to restart of both BuSpar and Wellbutrin feeling that the Abilify was working on its own well enough. Patient continued on Abilify 20 mg in the morning and 10 mg at night. Patient was on melatonin 3 mg at bedtime the patient felt that it made him nauseated. Patient felt ready to return home and states that he will have his brother assist him with his finances and his father also offered to have the patient return to live with him until the patient can find better housing. 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 Allergies quetiapine [From Seroquel] Allergy (Verified 05/31/17 10:05) Unknown Laboratory Last Values WBC 8.7 k/uL (3.8-10.6) 06/02/17 09:04 RBC 5.57 m/uL (4.30-5.90) 06/02/17 09:04 Hgb 16.5 gm/dL (13.0-17.5) 06/02/17 09:04 Hct 47.2 % (39.0-53.0) 06/02/17 09:04 MCV 84.7 fL (80.0-100.0) 06/02/17 09:04 MCH 29.6 pg (25.0-35.0) 06/02/17 09:04 MCHC 35.0 g/dL (31.0-37.0) 06/02/17 09:04 RDW 12.9 % (11.5-15.5) 06/02/17 09:04 Plt Count 279 k/uL (150-450) 06/02/17 09:04 Neutrophils % 54 % 05/31/17 09:52 Lymphocytes % 34 % 05/31/17 09:52 Monocytes % 7 % 05/31/17 09:52 Eosinophils % 2 % 05/31/17 09:52 Basophils % 1 % 05/31/17 09:52 Neutrophils # 3.4 k/uL (1.3-7.7) 05/31/17 09:52 Lymphocytes # 2.1 k/uL (1.0-4.8) 05/31/17 09:52 Monocytes # 0.4 k/uL (0-1.0) 05/31/17 09:52 Eosinophils # 0.1 k/uL (0-0.7) 05/31/17 09:52 Basophils # 0.0 k/uL (0-0.2) 05/31/17 09:52 Sodium 140 mmol/L (137-145) 06/02/17 09:04 Potassium 4.3 mmol/L (3.5-5.1) 06/02/17 09:04 Chloride 102 mmol/L (98-107) 06/02/17 09:04 Carbon Dioxide 25 mmol/L (22-30) 06/02/17 09:04 Anion Gap 13 mmol/L 06/02/17 09:04 BUN 12 mg/dL (9-20) 06/02/17 09:04 Creatinine 0.70 mg/dL (0.66-1.25) 06/02/17 09:04 Est GFR (CKD-EPI)AfAm >90 (>60 ml/min/1.73 sqM) 06/02/17 09:04 Est GFR (CKD-EPI)NonAf >90 (>60 ml/min/1.73 sqM) 06/02/17 09:04 Glucose 110 mg/dL (74-99) H 06/02/17 09:04 Calcium 9.5 mg/dL (8.4-10.2) 06/02/17 09:04 Total Bilirubin 0.8 mg/dL (0.2-1.3) 06/02/17 09:04 AST 19 U/L (17-59) 06/02/17 09:04 ALT 27 U/L (21-72) 06/02/17 09:04 Alkaline Phosphatase 75 U/L (38-126) 06/02/17 09:04 Total Protein 6.7 g/dL (6.3-8.2) 06/02/17 09:04 Albumin 4.0 g/dL (3.5-5.0) 06/02/17 09:04 Triglycerides 162 mg/dL (<150) H 05/31/17 09:52 Cholesterol 141 mg/dL (<200) 05/31/17 09:52 LDL Cholesterol, Calc 72 mg/dL (0-99) 05/31/17 09:52 HDL Cholesterol 37 mg/dL (40-60) L 05/31/17 09:52 TSH 0.413 mIU/L (0.465-4.680) L 05/31/17 09:52 Free T4 1.50 ng/dL (0.78-2.19) 05/31/17 09:52 Urine Color Light Yellow 05/30/17 16:45 Urine Appearance Clear (Clear) 05/30/17 16:45 Urine pH 6.5 (5.0-8.0) 05/30/17 16:45 Ur Specific [place] 1.005 (1.001-1.035) 05/30/17 16:45 Urine Protein Negative (Negative) 05/30/17 16:45 Urine Glucose (UA) Negative (Negative) 05/30/17 16:45 Urine Ketones Negative (Negative) 05/30/17 16:45 Urine Blood Negative (Negative) 05/30/17 16:45 Urine Nitrite Negative (Negative) 05/30/17 16:45 Urine Bilirubin Negative (Negative) 05/30/17 16:45 Urine Urobilinogen <2.0 mg/dL (<2.0) 05/30/17 16:45 Ur Leukocyte Esterase Negative (Negative) 05/30/17 16:45 Urine RBC 12 /hpf (0-5) H 05/26/17 17:10 Ur Squamous Epith Cells <1 /hpf (0-4) 05/26/17 17:10 Amorphous Sediment Many /hpf (None) H 05/26/17 17:10 Urine Mucus Rare /hpf (None) H 05/26/17 17:10 Urine Opiates Screen Not Detected (NotDetected) 05/26/17 17:10 Ur Oxycodone Screen Not Detected (NotDetected) 05/26/17 17:10 Urine Methadone Screen Not Detected (NotDetected) 05/26/17 17:10 Ur Propoxyphene Screen Not Detected (NotDetected) 05/26/17 17:10 Ur Barbiturates Screen Not Detected (NotDetected) 05/26/17 17:10 U Tricyclic Antidepress Not Detected (NotDetected) 05/26/17 17:10 Ur Phencyclidine Scrn Not Detected (NotDetected) 05/26/17 17:10 Ur Amphetamines Screen Not Detected (NotDetected) 05/26/17 17:10 U Methamphetamines Scrn Not Detected (NotDetected) 05/26/17 17:10 U Benzodiazepines Scrn Not Detected (NotDetected) 05/26/17 17:10 Urine Cocaine Screen Not Detected (NotDetected) 05/26/17 17:10 U Marijuana (THC) Screen Detected (NotDetected) H 05/26/17 17:10 Discharge Mental Status: Appearance/Attitude: Patient is appropriately dressed, makes good eye contact and is cooperative. Behavior: Patient does not display any psychomotor agitation or retardation. Speech/Language: Patient's speech is spontaneous and normal volume and rhythm and he is coherent. Thought Process: Patient is goal-directed there is no evidence of loose association or flight of ideas and he is not tangential or circumstantial. Thought Content: Patient denies any auditory or visual hallucinations and no delusions or paranoid ideation were elicited. Patient is sleeping well and his appetite is good. Patient states that he is no longer having difficulty organizing his thoughts, denies any racing thoughts. Suicidal/Homicidal Ideation: Patient denies any current suicidal or homicidal ideation. Sensorium/Cognition: He is alert and oriented to person, place, and time and his recent and remote memory are grossly intact. Mood/Affect: Patient's mood is euthymic and his affect is appropriate Insight/Judgment: Patient's insight and judgment are intact. Risk Assessment: Patient's risk for readmission is low should patient remains sober and compliant with medications. Discharge Plan: Patient will be discharged and will be living temporarily with his father until he finds more permanent housing, patient will continue on Abilify 20 mg in the morning and 10 mg at bedtime. Patient will return to [facility] for follow-up. Patient was encouraged to be compliant with medication as well as to remain sober and avoid any alcohol or drug use. Patient Condition at Discharge: Stable Plan - Discharge Summary Discharge Rx Participant: No New Discharge Prescriptions: New ARIPiprazole [Abilify] 10 mg PO HS #14 tab ARIPiprazole [Abilify] 20 mg PO DAILY #14 tab Continue Cyanocobalamin [Vitamin B-12 Injection] 1,000 mcg SQ WEEKLY Cholecalciferol [Vitamin D3] 5,000 unit PO DAILY #28 tab Discontinued Ciprofloxacin HCl [Cipro] 250 mg PO Q12HR Discharge Medication List Cyanocobalamin [Vitamin B-12 Injection] 1,000 mcg SQ WEEKLY 05/15/17 [History] ARIPiprazole [Abilify] 10 mg PO HS #14 tab 06/04/17 [Rx] ARIPiprazole [Abilify] 20 mg PO DAILY #14 tab 06/04/17 [Rx] Cholecalciferol [Vitamin D3] 5,000 unit PO DAILY #28 tab 06/04/17 [Rx] Follow up Appointment(s)/Referral(s): [facility] [Outside] - 06/05/17 2:00 pm (06-05-17 @ 2:00 with Zoe Perez 06-07-17 @ 11:[address] Chacon) None,Stated [Primary Care Provider] - 1-2 days Patient Instructions/Handouts: Bipolar Disorder (DC), Brief Psychotic Disorder (DC) Activity/Diet/Wound Care/Special Instructions: Remove all weapons and firearms from the home; Refrain from street drugs and alcohol; Regular diet; Activity as tolerated; Follow-up with your PCP in 1-2 days; Keep all follow-up appointments for continuity of care; Any problems call the Crisis Line at or 134 in case of emergency or go the nearest hospital for an evaluation; If you need any prescription refills, contact your PCP for medical meds. and your aftercare Psychiatrist for psych. meds.; Discharge Disposition: HOME SELF-CARE
== END 2017-06-04 10:55 | disposition home or self-care (01) | DRG 885 ==
LOC: EC 15:46 → 3MHU 18:08
PROVIDERS: ADMIT Psychiatry & Neurology Psychiatry; ATTEND Psychiatry & Neurology Psychiatry
DX: F31.5 Bipolar disorder, current episode depressed, severe, with psychotic features (principal); Z91.14 Patient's other noncompliance with medication regimen; F12.90 Cannabis use, unspecified, uncomplicated; Z72.89 Other problems related to lifestyle; F41.9 Anxiety disorder, unspecified; K29.70 Gastritis, unspecified, without bleeding; M54.2 Cervicalgia; R11.0 Nausea; T50.995A Adverse effect of other drugs, medicaments and biological substances, initial encounter; M54.9 Dorsalgia, unspecified; G89.29 Other chronic pain; F17.200 Nicotine dependence, unspecified, uncomplicated; Z88.8 Allergy status to other drugs, medicaments and biological substances; Z91.5 Personal history of self-harm; Y92.239 Unspecified place in hospital as the place of occurrence of the external cause
CPT/HCPCS: 80053; 80061; 80306; 81001; 81003; 82075; 84439; 84443; 85025; 85027; 99285

== ENCOUNTER 2018-08-24 21:38 | Emergency (ER) | payer OTHER ==
--- NOTE | 2018-08-24 22:01 | ED ---
General Adult HPI - General Chief complaint: Psychiatric Symptoms Stated complaint: URI Time Seen by Provider: 08/24/18 21:48 Source: patient Mode of arrival: ambulatory Limitations: no limitations - History of Present Illness Initial comments: Dictation was produced using [employer] dictation software. please excuse any grammatical, word or spelling errors. Chief Complaint: 38-year-old male presents with viral URI type symptoms. History of Present Illness: Patient's 38-year-old male who has past nuchal history of depression. He presents today for feeling unwell. Patient states he's been feeling feverish since yesterday. He has had runny nose and productive cough. Patient states that he has no overt sick contacts. She also complains of mild sore throat that is worse when he swallows. Denies any nausea vomiting diarrhea. No abdominal pain or chest pain. Patient also has history of psychiatric disease. He reports that he just ran out of his lithium medication. He was just started on latuda after being on Abilify for several months. He is on his second week of latuda medication. Patient is concerned of how he will respond if he runs out of his medications. Patient also concerned because yesterday he had suicidal thoughts. He has no specific plan. He did think that he wanted to yesterday. He is currently not suicidal or homicidal. The ROS documented in this emergency department record has been reviewed and confirmed by me. Those systems with pertinent positive or negative responses marsh ve been documented in the HPI. All other systems are other negative and/or noncontributory. PHYSICAL EXAM: General Impression: Alert and oriented x3, not in acute distress HEENT: Normocephalic atraumatic, extra-ocular movements intact, pupils equal and reactive to light bilaterally, mucous membranes moist, enlarged tonsils without any exudates. Tonsils are erythematous Cardiovascular: Heart regular rate and rhythm, S1&S2 audible, no murmurs, rubs or gallops Chest: Lungs clear to auscultation bilaterally, no rhonchi, no wheeze, no rales Abdomen: Bowel sounds present, abdomen soft, non-tender, non-distended, no organomegaly Musculoskeletal: Pulses present and equal in all extremities, no peripheral edema Motor: no focal deficits noted Neurological: CN II-XII grossly intact, no focal motor or sensory deficits noted Skin: Intact with no visualized rashes Psych: Normal affect and mood ED course: 38 yo Male with URI type symptoms. Patient also has complaints of his psychiatric medications. Vital signs upon arrival shows tachycardia 104, rest of vital signs within acceptable limits.Rapid strep was negative, influenza test is negative. Chest x-ray is unremarkable. Clinical presentation consistent with viral URI. Reassurance provided. Patient did want to be evaluated by EPS. Patient was cleared by EPS. Patient told that no antibiotic is indicated at this time given that his duration of symptoms has only been the last 2 days. Patient reassured that his symptoms are self limiting and he should improve over the next couple days. Patient prescription for his refill Latuda, Afrin nasal spray and Motrin. - Related Data Home Medications Medication Instructions Recorded Confirmed Cyanocobalamin (Vitamin B-12) 1,000 mcg PO DAILY 08/24/18 08/24/18 [Vitamin B-12] Lurasidone [Latuda] 40 mg PO DAILY 08/24/18 08/24/18 Previous Rx's Medication Instructions Recorded Cholecalciferol [Vitamin D3 (25 5,000 unit PO DAILY #28 tab 06/04/17 Mcg = 1000 Iu)] Ibuprofen [Motrin] 600 mg PO Q6HR PRN #24 tab 08/24/18 Lurasidone [Latuda] 40 mg PO DAILY 3 Days #3 tablet 08/24/18 Oxymetazoline 0.05% Nasl Carroll 2 spray EA NOSTRIL BID #1 bottle 08/24/18 [Afrin 0.05% Nasal Carroll] Allergies Allergy/AdvReac Type Severity Reaction Status Date / Time quetiapine [From Seroquel] Allergy Unknown Verified 08/24/18 22:08 Review of Systems ROS Statement: Those systems with pertinent positive or pertinent negative responses have been documented in the HPI. ROS Other: All systems not noted in ROS Statement are negative. Past Medical History Past Medical History: Chest Pain / Angina Additional Past Medical History / Comment(s): Chest Pain but was cleared by cardiology. UTI history History of Any Multi-Drug Resistant Organisms: None Reported Past Surgical History: Unable to Obtain Past Anesthesia/Blood Transfusion Reactions: No Reported Reaction Additional Past Anesthesia/Blood Transfusion Reaction / Comment(s): pt states he has never had a blood transfusion or anesthesia Past Psychological History: Bipolar Smoking Status: Former smoker Past Alcohol Use History: None Reported, Abuse Past Drug Use History: Marijuana General Exam Limitations: no limitations Course Vital Signs 08/24/18 08/24/18 21:43 22:40 Temperature 99.6 F Pulse Rate 104 H Respiratory 20 18 Rate Blood Pressure 111/75 O2 Sat by Pulse 94 L Oximetry Medical Decision Making - Lab Data Lab Results 08/24/18 08/24/18 Range/Units 22:05 22:05 Influenza Type A RNA Not Detected (Not Detectd) Influenza Type B (PCR) Not Detected (Not Detectd) Group A Strep Rapid Negative (Negative) Disposition Clinical Impression: Common cold Disposition: HOME SELF-CARE Instructions (If sedation given, give patient instructions): Upper Respiratory Infection (ED) Prescriptions: Oxymetazoline 0.05% Nasl Carroll [Afrin 0.05% Nasal Carroll] 2 spray EA NOSTRIL BID #1 bottle Lurasidone [Latuda] 40 mg PO DAILY 3 Days #3 tablet Ibuprofen [Motrin] 600 mg PO Q6HR PRN #24 tab PRN Reason: Pain Is patient prescribed a controlled substance at d/c from ED?: No Referrals: [facility] [Primary Care Provider] - 1-2 days Time of Disposition: 23:34
--- NOTE | 2018-08-24 22:20 | XR ---
EXAM: XR Chest, 2 Views CLINICAL HISTORY: ITS.REASON XR Reason: Pain TECHNIQUE: Frontal and lateral views of the chest. COMPARISON: 05/15/17 FINDINGS: Lungs: Unremarkable. No consolidation. Pleural space: Unremarkable. No pneumothorax. Heart: Unremarkable. No cardiomegaly. Mediastinum: Unremarkable. Bones/joints: Unremarkable. IMPRESSION: No acute findings.
[2018-08-24] MEDS ORDERED: KETOROLAC 30 MG/ML 1 ML VIAL IM STA (22:34)
[2018-08-24 22:42] VITALS: RESP 18
[2018-08-24 23:42] VITALS: BP 102/58; PULSE 63; TEMP 100.6
[2018-08-24] MEDS ORDERED: ACETAMINOPHEN TAB 325 MG TAB PO STA (23:43)
== END 2018-08-25 00:33 | disposition home or self-care (01) ==
LOC: EC 21:38
DX: J00 Acute nasopharyngitis [common cold] (principal); F31.9 Bipolar disorder, unspecified; R00.0 Tachycardia, unspecified; Z79.899 Other long term (current) drug therapy; Z88.8 Allergy status to other drugs, medicaments and biological substances; Z87.891 Personal history of nicotine dependence
CPT/HCPCS: 82075; 87081; 87430; 87502; 71046; 99284; 96372; J1885

== ENCOUNTER 2018-11-17 21:21 | Inpatient (IN) | payer MEDICARE, OTHER ==
[2018-11-17] MEDS ORDERED: HALOPERIDOL LACTATE 5 MG/ML 1 ML VIAL IM STA (21:27)
[2018-11-17] MEDS ORDERED: LORazepam 2 MG/ML INJ IM STA (21:27)
[2018-11-17] MEDS ORDERED: diphenhydrAMINE 50 MG/ML 1 ML VIAL IM STA (21:27)
--- NOTE | 2018-11-17 21:36 | ED ---
Psych HPI - General Stated Complaint: Mental Health Time Seen by Provider: 11/17/18 21:27 Source: patient Mode of arrival: ambulatory - History of Present Illness Initial Comments: Patient is a 38-year-old woman is brought to the emergency department today by his sister for manic behavior. Upon initial evaluation the patient is awake alert screaming fighting being very inappropriate. Patient screaming that he is better than everyone, patient is paranoid that people are stealing his stuff, patient cannot be consoled he's threatening and violent with staff. - Related Data Home Medications Medication Instructions Recorded Confirmed Cyanocobalamin (Vitamin B-12) 1,000 mcg PO DAILY 08/24/18 11/17/18 [Vitamin B-12] Lurasidone HCl [Latuda] 60 mg PO DAILY 11/17/18 11/17/18 Previous Rx's Medication Instructions Recorded Cholecalciferol [Vitamin D3 (25 5,000 unit PO DAILY #28 tab 06/04/17 Mcg = 1000 Iu)] Allergies Allergy/AdvReac Type Severity Reaction Status Date / Time quetiapine [From Seroquel] Allergy Unknown Verified 11/17/18 21:31 Review of Systems ROS Statement: Those systems with pertinent positive or pertinent negative responses have been documented in the HPI. ROS Other: All systems not noted in ROS Statement are negative. Past Medical History Past Medical History: Chest Pain / Angina Additional Past Medical History / Comment(s): Chest Pain but was cleared by cardiology. UTI history History of Any Multi-Drug Resistant Organisms: None Reported Past Surgical History: Unable to Obtain Past Anesthesia/Blood Transfusion Reactions: No Reported Reaction Additional Past Anesthesia/Blood Transfusion Reaction / Comment(s): pt states he has never had a blood transfusion or anesthesia Past Psychological History: Bipolar Smoking Status: Former smoker Past Alcohol Use History: None Reported, Abuse Past Drug Use History: Marijuana General Exam - General Exam Comments Initial Comments: Physical Exam GENERAL: Agitated HENT: Normocephalic, Atraumatic. EYES: PERRL, EOMI PULMONARY: Unlabored respirations. CARDIOVASCULAR: Tachycardic ABDOMEN: Non-distended SKIN: No injuries Has drawings on skin : Deferred NEUROLOGIC: Oriented to person, will not cooperate with further questions MUSCULOSKELETAL: Normal extremities with adequate strength and full range of motion. No lower extremity swelling or edema. No calf tenderness. PSYCHIATRIC: Agitated, manic, paranoid Limitations: no limitations Course Vital Signs 11/17/18 11/18/18 11/18/18 21:29 01:14 06:54 Temperature 99 F Pulse Rate 127 H 69 50 L Respiratory 20 19 18 Rate Blood Pressure 153/96 113/79 99/63 O2 Sat by Pulse 98 99 98 Oximetry Procedures - Restraint - Face to Face Restraint Occurrence 1 Patient's Immediate Situation: Endangers self safety, Endangers others' safety, Endangers staff safety, Violent behavior Patient's Reaction to the Intervention: Uncooperative Patient's Medical & Behavioral Condition: Awake, Alert Need to Continue or Terminate Restraint or Seclusion: Continue Face to Face Eval of Restraint Date: 11/17/18 Face to Face Eval of Restraint Time: 21:45 Medical Decision Making - Medical Decision Making Patient was seen and evaluated immediately upon arrival, patient agitated, combative Benadryl, Ativan and Haldol ordered for anxiolysis Patient placed in 4 point restraints for patient and staff safety Patient resting comfortably, restraints removed Labs unremarkable Patient cleared for evaluation by psychiatry Patient too sleepy to participate in conversation with EPS Patient re-evaluated by EPS, refusing to answer questions Cert completed for acute psychosis - Lab Data Result diagrams: 11/17/18 21:58 11/17/18 21:58 Lab Results 11/17/18 11/17/18 Range/Units 21:58 21:58 WBC 10.3 (3.8-10.6) k/uL RBC 5.55 (4.30-5.90) m/uL Hgb 15.0 (13.0-17.5) gm/dL Hct 47.1 (39.0-53.0) % MCV 85.0 (80.0-100.0) fL MCH 27.1 (25.0-35.0) pg MCHC 31.9 (31.0-37.0) g/dL RDW 13.6 (11.5-15.5) % Plt Count 334 (150-450) k/uL Neutrophils % 45 % Lymphocytes % 44 % Monocytes % 6 % Eosinophils % 1 % Basophils % 1 % Neutrophils # 4.6 (1.3-7.7) k/uL Lymphocytes # 4.6 (1.0-4.8) k/uL Monocytes # 0.6 (0-1.0) k/uL Eosinophils # 0.1 (0-0.7) k/uL Basophils # 0.1 (0-0.2) k/uL Sodium 141 (137-145) mmol/L Potassium 3.7 (3.5-5.1) mmol/L Chloride 106 (98-107) mmol/L Carbon Dioxide 13 L (22-30) mmol/L Anion Gap 22 mmol/L BUN 11 (9-20) mg/dL Creatinine 1.21 (0.66-1.25) mg/dL Est GFR (CKD-EPI)AfAm 86 (>60 ml/min/1.73 sqM) Est GFR (CKD-EPI)NonAf 75 (>60 ml/min/1.73 sqM) Glucose 140 H (74-99) mg/dL Calcium 9.8 (8.4-10.2) mg/dL Total Bilirubin 1.6 H (0.2-1.3) mg/dL AST 41 (17-59) U/L ALT 31 (21-72) U/L Alkaline Phosphatase 64 (38-126) U/L Total Protein 7.8 (6.3-8.2) g/dL Albumin 4.9 (3.5-5.0) g/dL Salicylates <1.0 mg/dL Acetaminophen <10.0 ug/mL Serum Alcohol <10 mg/dL Disposition Clinical Impression: Acute psychosis Disposition: TRANSFER TO PSYCH HOSP/UNIT Condition: Stable Referrals: [facility] [Primary Care Provider] - 1-2 days
[2018-11-17 22:16] LABS: Basophils # (A) 0.1 k/uL (0-0.2); Basophils % (A) 1 %; Eosinophils # (A) 0.1 k/uL (0-0.7); Eosinophils % (A) 1 %; HCT 47.1 % (39.0-53.0); Lymphocytes # (A) 4.6 k/uL (1.0-4.8); Lymphocytes % (A) 44 %; MCH 27.1 pg (25.0-35.0); MCHC 31.9 g/dL (31.0-37.0); Mean Platelet Volume 7.2; Monocytes # (A) 0.6 k/uL (0-1.0); Monocytes % (A) 6 %; Neutrophils # (A) 4.6 k/uL (1.3-7.7); Neutrophils % (A) 45 %; Platelet Count 334 k/uL (150-450); RBC 5.55 m/uL (4.30-5.90); RDW 13.6 % (11.5-15.5); WBC 10.3 k/uL (3.8-10.6)
[2018-11-17 22:25] LABS: ALT 31 U/L (21-72); AST 41 U/L (17-59); Acetaminophen <10.0 ug/mL; African American GFR (CKD) 86 (>60 ml/min/1.73 sqM); Albumin 4.9 g/dL (3.5-5.0); Alcohol <10 mg/dL; Alkaline Phosphatase 64 U/L (38-126); Anion Gap 22 mmol/L; Blood Urea Nitrogen 11 mg/dL (9-20); Calcium 9.8 mg/dL (8.4-10.2); Carbon Dioxide 13 mmol/L (22-30); Chloride 106 mmol/L (98-107); Glucose 140 mg/dL (74-99); Potassium 3.7 mmol/L (3.5-5.1); Salicylate <1.0 mg/dL; Sodium 141 mmol/L (137-145); Total Bilirubin 1.6 mg/dL (0.2-1.3); Total Protein 7.8 g/dL (6.3-8.2)
[2018-11-18] MEDS ORDERED: ACETAMINOPHEN TAB 325 MG TAB PO PRN (21:27)
[2018-11-18] MEDS ORDERED: MAGNESIUM HYDROXIDE 2,400 MG/10 ML CUP PO PRN (21:27)
[2018-11-18] MEDS ORDERED: MAG HYDROX/AL HYDROX/SIMETH 30 ML CUP PO PRN (21:27)
[2018-11-18] MEDS ORDERED: LORazepam 1 MG TAB PO PRN (21:27)
[2018-11-18] MEDS ORDERED: ZIPRASIDONE 20 MG VIAL IM PRN (21:27)
[2018-11-18] MEDS ORDERED: LORazepam 2 MG/ML INJ IM PRN (21:36)
--- NOTE | 2018-11-18 22:51 | P.HPIM ---
History of Present Illness H&P Date: 11/18/18 Patient is a 38-year-old male with a PMH of bipolar disorder who presented to the ED for manic behavior. The patient was seen in the mental health unit. He denied any active complaints. He denied chest pain, cough, fever, chills, nausea, vomiting. He also denied abdominal pain, diarrhea, or constipation. The patient's laboratory evaluation in the emergency room revealed CO2 elevated at 13, glucose 140, and elevated T bili at 1.6. He was admitted to the psych unit for bipolar disorder. Review of Systems Pertinent positives and negatives as discussed in HPI, a complete review of systems was performed and all other systems are negative. Past Medical History Past Medical History: Chest Pain / Angina Additional Past Medical History / Comment(s): Chest Pain but was cleared by cardiology. UTI history History of Any Multi-Drug Resistant Organisms: None Reported Past Surgical History: Unable to Obtain Past Anesthesia/Blood Transfusion Reactions: No Reported Reaction Additional Past Anesthesia/Blood Transfusion Reaction / Comment(s): pt states he has never had a blood transfusion or anesthesia Past Psychological History: Bipolar Smoking Status: Former smoker Past Alcohol Use History: None Reported, Abuse Past Drug Use History: Marijuana Medications and Allergies Home Medications Medication Instructions Recorded Confirmed Type Cholecalciferol [Vitamin D3 (25 5,000 unit PO DAILY #28 tab 06/04/17 11/17/18 Rx Mcg = 1000 Iu)] Cyanocobalamin (Vitamin B-12) 1,000 mcg PO DAILY 08/24/18 11/17/18 History [Vitamin B-12] Lurasidone HCl [Latuda] 60 mg PO DAILY 11/17/18 11/17/18 History Allergies Allergy/AdvReac Type Severity Reaction Status Date / Time quetiapine [From Seroquel] Allergy Unknown Verified 11/17/18 21:31 Physical Exam Vitals: Vital Signs Temp Pulse Pulse Resp BP BP Pulse Ox 11/18/18 21:44 97.6 F 64 14 129/76 11/18/18 19:01 98.2 F 73 16 122/79 100 11/18/18 06:54 50 L 18 99/63 98 11/18/18 01:14 69 19 113/79 99 Intake and Output 11/18/18 11/18/18 11/18/18 06:59 14:59 22:59 Other: Weight 109.3 kg General: non toxic, no distress, appears at stated age, obese Derm: no unusual rashes/lesions no unusual ecchymoses, warm, dry Head: atraumatic, normocephalic, symmetric Eyes: EOMI, no lid lag, anicteric sclera, pupils equal round reactive to light ENT: Nose and ears atraumatic, no thrush, no pharyngeal erythema Neck: No thyromegaly, no cervical lymphadenopathy, trachea midline, supple Mouth: no lip lesion, mucus membranes moist Cardiovascular: S1S2 reg, no murmur, positive posterior tibial pulse bilateral, no edema, capillary refill less than 2 seconds Lungs: CTA bilateral, no rhonchi, no rales , no accessory muscle use Abdominal: soft, nontender to palpation, no guarding, no appreciable organomegaly, normal bowel sounds Ext: no gross muscle atrophy, muscle strength 5 out of 5 in all 4 extremities grossly, no contractures, Neuro: CN II-XI grossly intact, light touch intact all 4 extremities, finger to nose within normal limits, Psych: Alert, oriented, Results CBC & Chem 7: 11/17/18 21:58 11/17/18 21:58 Assessment and Plan Plan: Bipolar disorder -As per psychiatry Hyperglycemia -Check A1c Elevated total bilirubin -Denied any abdominal complaints -Monitor for now Thank you for allowing us to participate in the care of this patient. We will follow peripherally. Do not hesitate to contact us with questions. Someone can be reached from the [facility] hospitalist group at all hours of the day at [phone].
[2018-11-19] MEDS ORDERED: NICOTINE 14MG/24HR PATCH TRANSDERM SCH (09:00)
[2018-11-19 15:13] LABS: Hemoglobin A1C 5.1 % (4.0-6.0)
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
[2018-11-20] MEDS ORDERED: ARIPiprazole 5 MG TAB PO SCH (09:00)
[2018-11-20] MEDS ORDERED: ARIPiprazole 10 MG TAB PO SCH (09:00)
--- NOTE | 2018-11-20 09:46 | P.PN ---
Progress Note - Text Progress Note Date: 11/20/18 Interval History: Patient was seen in the hallways and was agreeable to speak to freelance writer. Patient continues to carry Bibles along with other papers and folders in his arm. Patient offers no overnight complaints and states that he slept well last night. He states that his mood is feeling "more mindful of other's and doing my thinking" and states that he is feeling calmer. He claims that he got the first dose of the medication today and denied any side effects. He states that he has been going all the groups and at this time he does not endorse paranoia about other people messing with his things or trying to hurt him. Patient claims that his appetite is good and his energy level is fair. At this time patient denies any suicidal or homical ideations, intent or plan. Patient denies any auditory, visual hallucinations and denies any paranoia or delusions. Patient denies any side effects from the medications and has been compliant with meds. Mental Status Exam: General Appearance: Patient appears to be stated age is alert, directable and cooperative. Patient is carrying around a Bible and multiple papers. Patient has fair hygiene and fair grooming and is wearing street clothing. Behavior: Patient is calmly seated without any agitated behavior. Speech: Patient's speech is fluent and nonpressured. Mood/Affect: Patient reports their mood is "calmer", affect is congruent Suicidality/Homicidality: Patient denies having any suicidal or homicidal ideation intent or plan. Perceptions: Patient denies any auditory or visual hallucinations. Though content/process: There is no evidence of any delusional thought content and thought process is tangential, illogical and grandiose. Memory and concentration: AOX3, grossly intact for the purposes of this session Judgment and insight: Poor, improving mildly. Assessment Schizoaffective disorder, bipolar type Plan: -Patient continues to meet criteria for inpatient psychiatric admission for symptom stabilization and safety. Patient signed an adult voluntary form for admission along with medication consents which are in patient's chart. -Medications: Will increase Abilify to 10 mg for tomorrow for mood stabilization. We will increase this medication as tolerated. Patient will likely need a long-acting Abilify IM shot prior to discharge. -When necessary Geodon and Ativan for agitation/aggression. -NRT - patient declined as patient does not smoke at this time. -SW on board for discharge planning.
[2018-11-21 08:26] LABS: Appearance,Urine Clear (Clear); Bilirubin,Urine Negative (Negative); Blood,Urine Negative (Negative); Color,Urine Yellow; Glucose,Urine (UA) Negative (Negative); Hyaline Casts,Urine 2 /lpf (0-2); Ketones,Urine Negative (Negative); Leukocyte Esterase,Urine Trace (Negative); Mucus,Urine Many /hpf; Nitrite,Urine Negative (Negative); PH, Urine 6.5 (5.0-8.0); Protein,Urine Trace (Negative); RBC,Urine 1 /hpf (0-5); Squamous Epithelial Cell,Urine 1 /hpf (0-4); WBC,Urine 6 /hpf (0-5)
[2018-11-21] MEDS ORDERED: ARIPiprazole 10 MG TAB PO SCH (09:00)
--- NOTE | 2018-11-21 10:15 | P.PN ---
Progress Note - Text Progress Note Date: 11/21/18 Interval History: Patient was seen in the hallways and was agreeable to speak to copy writer. Patient continues to carry Bibles along with other papers and folders in his arm. Patient appeared to be calmer this morning and showed copy writer one of his drawings that he is making on the unit and was very proud of that. Patient offers no overnight complaints and states that he slept well last night. He states that his mood is feeling "a bit better" and states that he is feeling calmer and safer on the unit. He states that he is still feeling angry at the ED staff and security guards for holding him down for a medication administration when he came into the hospital and went on to describe that he would've taken the medications appropriately if he was asked and understood that he was angry at that time. He spoke of continuing to take the Abilify and having improvement in his thoughts and functioning. He states that he has been going all the groups. Patient claims that his appetite is good and his energy level is fair. At this time patient denies any suicidal or homical ideations, intent or plan. Patient denies any auditory, visual hallucinations and denies any paranoia or delusions. Patient denies any side effects from the medications and has been compliant with meds. Mental Status Exam: General Appearance: Patient appears to be stated age is alert, directable and cooperative. Patient is carrying around a Bible and multiple papers. Patient has fair hygiene and fair grooming and is wearing street clothing. Behavior: Patient is calmly seated without any agitated behavior. Speech: Patient's speech is fluent and nonpressured. Mood/Affect: Patient reports their mood is "fine", affect is congruent Suicidality/Homicidality: Patient denies having any suicidal or homicidal ideation intent or plan. Perceptions: Patient denies any auditory or visual hallucinations. Though content/process: There is no evidence of any delusional thought content and thought process is goal oriented. Memory and concentration: AOX3, grossly intact for the purposes of this session Judgment and insight: Fair, improving mildly. Assessment Schizoaffective disorder, bipolar type Plan: -Patient continues to meet criteria for inpatient psychiatric admission for symptom stabilization and safety. Patient signed an adult voluntary form for admission along with medication consents which are in patient's chart. -Medications: Will increase Abilify to 15 mg for tomorrow for mood stabilizati on. We will increase this medication as tolerated. Patient will likely need a long-acting Abilify IM shot prior to discharge. -When necessary Geodon and Ativan for agitation/aggression. -NRT - patient declined as patient does not smoke at this time. -SW on board for discharge planning.
[2018-11-21 19:01] LABS: Urine Alcohol Negative (Negative); Urine Barbiturate Negative (Negative); Urine Cocaine Negative (Negative); Urine Methadone Negative (Negative); Urine Opiates Negative (Negative); Urine Phencyclidine Negative (Negative)
[2018-11-22 05:59] VITALS: BP 118/75; PULSE 68; RESP 18; TEMP 98.2
[2018-11-22] MEDS ORDERED: ARIPiprazole 15 MG TAB PO SCH (09:00)
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
== END 2018-11-22 15:00 | disposition home or self-care (01) | DRG 885 ==
LOC: EC 21:21 → 3MHU 11-18 19:54
PROVIDERS: ADMIT Psychiatry & Neurology Psychiatry; ATTEND Psychiatry & Neurology Psychiatry
DX: F25.0 Schizoaffective disorder, bipolar type (principal); Z78.1 Physical restraint status; R73.9 Hyperglycemia, unspecified; R25.1 Tremor, unspecified; T43.596A Underdosing of other antipsychotics and neuroleptics, initial encounter; Z91.128 Patient's intentional underdosing of medication regimen for other reason; E66.9 Obesity, unspecified; Z68.30 Body mass index [BMI] 30.0-30.9, adult; Z79.899 Other long term (current) drug therapy; Z56.0 Unemployment, unspecified; Z87.440 Personal history of urinary (tract) infections; Z87.891 Personal history of nicotine dependence; Y63.6 Underdosing and nonadministration of necessary drug, medicament or biological substance; Z88.8 Allergy status to other drugs, medicaments and biological substances
CPT/HCPCS: 36415; 80053; 80061; 80306; 80320; 80329; 81001; 82075; 83036; 83520; 84443; 85025; 96372; 99285

== ENCOUNTER 2019-01-19 13:56 | Emergency (ER) | payer MEDICARE ==
--- NOTE | 2019-01-19 14:49 | ED ---
General Adult HPI <Kentrell Milton - Last Filed: 01/19/19 17:22> - General Source: patient, RN notes reviewed Mode of arrival: ambulatory Limitations: no limitations <Khai Mogran - Last Filed: 01/19/19 17:27> - General Chief complaint: Psychiatric Symptoms Stated complaint: Mental Health Time Seen by Provider: 01/19/19 14:09 - History of Present Illness Initial comments: 38-year-old male with a past medical history of angina, bipolar disorder presents to the emergency department for a chief complaint of suicidal thoughts. Patient states that 3 days ago he was arrested for assaulting his family member after getting into an argument. States that prior to that he did attempt to commit suicide by hanging himself. States that he tied a cord around his neck and connected it to the door frame and leaned forward. Denies loss of consciousness. States his sister came down and saw him so he stopped. Denies neck pain, pain or difficulty swallowing, or difficulty breathing. Denies headache. States he is not feeling suicidal at this time but was released from prison today and he needed an urgent evaluation by mobile crisis. Patient has no other complaints at this time including shortness of breath, chest pain, abdominal pain, nausea or vomiting, headache, or visual changes. (Khai Morgan) - Related Data Home Medications Medication Instructions Recorded Confirmed ARIPiprazole [Abilify] 20 mg PO DAILY 01/19/19 01/19/19 Allergies Allergy/AdvReac Type Severity Reaction Status Date / Time quetiapine [From Seroquel] Allergy Unknown Verified 01/19/19 16:41 Review of Systems ROS Other: All systems not noted in ROS Statement are negative. <Kentrell Milton - Last Filed: 01/19/19 17:22> ROS Other: All systems not noted in ROS Statement are negative. <Khai Morgan - Last Filed: 01/19/19 17:27> ROS Statement: Those systems with pertinent positive or pertinent negative responses have been documented in the HPI. Past Medical History Past Medical History: Chest Pain / Angina Additional Past Medical History / Comment(s): Chest Pain but was cleared by cardiology. UTI history History of Any Multi-Drug Resistant Organisms: None Reported Past Surgical History: Unable to Obtain Past Anesthesia/Blood Transfusion Reactions: No Reported Reaction Additional Past Anesthesia/Blood Transfusion Reaction / Comment(s): pt states he has never had a blood transfusion or anesthesia Past Psychological History: Bipolar Smoking Status: Former smoker Past Alcohol Use History: None Reported, Abuse Past Drug Use History: Marijuana <Khai Morgan - Last Filed: 01/19/19 17:27> General Exam Limitations: no limitations General appearance: alert, in no apparent distress Head exam: Present: atraumatic, normocephalic, normal inspection Eye exam: Present: normal appearance, PERRL, EOMI. Absent: scleral icterus, conjunctival injection, periorbital swelling ENT exam: Present: normal exam, normal oropharynx, mucous membranes moist, TM's normal bilaterally, normal external ear exam Neck exam: Present: normal inspection, full ROM, other (No contusions or evidence of trauma noted to the neck). Absent: tenderness, meningismus, lymphadenopathy Respiratory exam: Present: normal lung sounds bilaterally. Absent: respiratory distress, wheezes, rales, rhonchi, stridor Cardiovascular Exam: Present: regular rate, normal rhythm, normal heart sounds. Absent: systolic murmur, diastolic murmur, rubs, gallop, clicks Neurological exam: Present: alert, oriented X3, normal gait Psychiatric exam: Present: normal affect, normal mood <Khai Morgan - Last Filed: 01/19/19 17:27> Course <Kentrell Milton - Last Filed: 01/19/19 17:22> Vital Signs 01/19/19 01/19/19 01/19/19 14:00 16:07 17:09 Temperature 98 F Pulse Rate 57 L Respiratory 16 18 17 Rate Blood Pressure 99/62 O2 Sat by Pulse 98 Oximetry - Reevaluation(s) Reevaluation #1: 01/19/19 17:22 I did review the case and do agree with the plan the patient was evaluated found not to be wrist some Zofran with else at this time. (Kentrell Milton) Medical Decision Making <Khai Morgan - Last Filed: 01/19/19 17:27> - Medical Decision Making Vision presents for suicidal thoughts on Sunday. Denying any other time. Patient apparently tried to hang himself on Sunday but does not have any evidence of trauma nor neck pain. Patient was evaluated by EPS at [facility] does not wish to evaluate him today and will see him tomorrow. EPS recommends patient be discharged home to follow up with [facility] tomorrow as previously scheduled. Patient is not suicidal at this time. He states he feels "good" at this time adn denies suicidal ideation. Patient has a safe place to go and has bus fare to get home. (Khai Morgan) Disposition <Kentrell Milton - Last Filed: 01/19/19 17:22> Is patient prescribed a controlled substance at d/c from ED?: No Time of Disposition: 17:24 <Khai Morgan - Last Filed: 01/19/19 17:27> Clinical Impression: Situational depression Disposition: HOME SELF-CARE Condition: Good Instructions (If sedation given, give patient instructions): Depression (ED) Additional Instructions: Please follow up with [facility] as directed. Return to the emergency department if you have any worsening symptoms such as additional thoughts of suicide. Referrals: [facility] [Primary Care Provider] - 1-2 days
[2019-01-19 17:10] VITALS: RESP 17
[2019-01-19 17:35] VITALS: BP 103/74; PULSE 62; TEMP 98
== END 2019-01-19 17:35 | disposition home or self-care (01) ==
LOC: EC 13:56
DX: F43.21 Adjustment disorder with depressed mood (principal); F31.9 Bipolar disorder, unspecified; Z87.891 Personal history of nicotine dependence; Z79.899 Other long term (current) drug therapy; Z88.8 Allergy status to other drugs, medicaments and biological substances
CPT/HCPCS: 82075; 99284

== ENCOUNTER 2019-02-05 17:05 | Emergency (ER) | payer MEDICARE, OTHER ==
[2019-02-05 17:31] VITALS: RESP 18
[2019-02-05] MEDS ORDERED: KETOROLAC 0.5% OPHTH DROPS 5 ML BTL BOTH EYES STA (18:33)
[2019-02-05 18:58] LABS: Amphetamine Screen,Urine Not Detected (NotDetected); Barbiturate Screen,Urine Not Detected (NotDetected); Benzodiazepines Screen,Urine Not Detected (NotDetected); Cocaine Screen,Urine Not Detected (NotDetected); Methadone Screen, Urine Not Detected (NotDetected); Opiate Screen,Urine Not Detected (NotDetected); Oxycodone Screen, Urine Not Detected (NotDetected); Phencyclidine Screen,Urine Not Detected (NotDetected); Tricyclic Antidepressant,Urine Not Detected (NotDetected); Urn Cannabinoid Scrn Not Detected (NotDetected)
--- NOTE | 2019-02-05 19:23 | ED ---
Psych HPI - General Chief Complaint: Psychiatric Symptoms Stated Complaint: Eye pain, loss of vision Time Seen by Provider: 02/05/19 17:30 Source: patient, RN notes reviewed Mode of arrival: ambulatory - History of Present Illness Initial Comments: Is a 39-year-old male who presented with complaints of feeling depressed and suicidal today he also complains of burning in both eyes started while he was at a local restaurant. He denies any drainage seen blindness he states he normally wears corrective lenses but hasn't been recently. He had no exposure to dirt DOS or smoke. No fevers chills nausea vomiting sweats or other symptoms MD Complaint: suicidal ideation, feels depressed - Related Data Home Medications Medication Instructions Recorded Confirmed ARIPiprazole [Abilify] 20 mg PO DAILY 01/19/19 01/19/19 Allergies Allergy/AdvReac Type Severity Reaction Status Date / Time quetiapine [From Seroquel] Allergy Unknown Verified 02/05/19 17:31 Review of Systems ROS Statement: Those systems with pertinent positive or pertinent negative responses have been documented in the HPI. ROS Other: All systems not noted in ROS Statement are negative. Past Medical History Past Medical History: Chest Pain / Angina Additional Past Medical History / Comment(s): Chest Pain but was cleared by cardiology. UTI history History of Any Multi-Drug Resistant Organisms: None Reported Past Surgical History: Unable to Obtain Past Anesthesia/Blood Transfusion Reactions: No Reported Reaction Additional Past Anesthesia/Blood Transfusion Reaction / Comment(s): pt states he has never had a blood transfusion or anesthesia Past Psychological History: Bipolar Smoking Status: Former smoker Past Alcohol Use History: None Reported, Abuse Past Drug Use History: Marijuana General Exam - General Exam Comments Initial Comments: This a well-developed well-nourished awake alert oriented 3 male Limitations: no limitations General appearance: alert, in no apparent distress Head exam: Present: atraumatic, normocephalic, normal inspection Eye exam: Present: normal appearance, PERRL, EOMI. Absent: scleral icterus, conjunctival injection, periorbital swelling ENT exam: Present: normal exam, mucous membranes moist Neck exam: Present: normal inspection. Absent: tenderness, meningismus, lymphadenopathy Respiratory exam: Present: normal lung sounds bilaterally. Absent: respiratory distress, wheezes, rales, rhonchi, stridor Cardiovascular Exam: Present: regular rate, normal rhythm, normal heart sounds. Absent: systolic murmur, diastolic murmur, rubs, gallop, clicks GI/Abdominal exam: Present: soft, normal bowel sounds. Absent: distended, tenderness, guarding, rebound, rigid Extremities exam: Present: normal inspection, full ROM, normal capillary refill. Absent: tenderness, pedal edema, joint swelling, calf tenderness Back exam: Present: normal inspection Neurological exam: Present: alert, oriented X3, CN II-XII intact Psychiatric exam: Present: depressed, flat affect, suicidal ideation Skin exam: Present: warm, dry, intact, normal color. Absent: rash Course Vital Signs 02/05/19 17:24 Temperature 97.4 F L Pulse Rate 74 Respiratory 18 Rate Blood Pressure 128/83 O2 Sat by Pulse 99 Oximetry Medical Decision Making - Medical Decision Making Patient was evaluated by psychiatric service and currently is not a risk to himself or anyone else he does have an open case file a [facility] and will follow-up. As far as his eye discomfort he states she's had this for quite a while along with photophobia for a long time. I did recommend he follow-up with ophthalmology. I also did recommend he get [id number] Visine and use as needed. He will follow-up. - Lab Data Lab Results 02/05/19 Range/Units 18:28 Urine Opiates Screen Not Detected (NotDetected) Ur Oxycodone Screen Not Detected (NotDetected) Urine Methadone Screen Not Detected (NotDetected) Ur Propoxyphene Screen Not Detected (NotDetected) Ur Barbiturates Screen Not Detected (NotDetected) U Tricyclic Antidepress Not Detected (NotDetected) Ur Phencyclidine Scrn Not Detected (NotDetected) Ur Amphetamines Screen Not Detected (NotDetected) U Methamphetamines Scrn Not Detected (NotDetected) U Benzodiazepines Scrn Not Detected (NotDetected) Urine Cocaine Screen Not Detected (NotDetected) U Marijuana (THC) Screen Not Detected (NotDetected) Disposition Clinical Impression: Adjustment reaction of adult life, Discomfort of both eyes Disposition: HOME SELF-CARE Condition: Good Instructions (If sedation given, give patient instructions): Mood Disorders (ED), Eye Pain (ED) Additional Instructions: [id number] Visine when necessary Is patient prescribed a controlled substance at d/c from ED?: No Referrals: [facility] [Primary Care Provider] - 1-2 days Keo Swenson MD [STAFF PHYSICIAN] - 1-2 days
[2019-02-05 22:58] VITALS: BP 124/79; PULSE 82; TEMP 98
== END 2019-02-05 22:58 | disposition home or self-care (01) ==
LOC: EC 17:05
DX: F43.20 Adjustment disorder, unspecified (principal); H57.13 Ocular pain, bilateral; R45.851 Suicidal ideations; H53.149 Visual discomfort, unspecified; F31.9 Bipolar disorder, unspecified; Z87.891 Personal history of nicotine dependence; Z88.8 Allergy status to other drugs, medicaments and biological substances; Z79.899 Other long term (current) drug therapy
CPT/HCPCS: 80306; 82075; 99285

== ENCOUNTER 2019-02-08 04:38 | Emergency (ER) | payer MEDICARE, OTHER ==
--- NOTE | 2019-02-08 04:51 | ED ---
General Adult HPI - General Stated complaint: shoulder/arm pain Time Seen by Provider: 02/08/19 04:51 Source: patient Mode of arrival: ambulatory Limitations: no limitations - History of Present Illness Initial comments: Patient is a 39-year-old male well-known to the emergency Department who presents this morning with complaint of shoulder pain. Patient states that he's been walking around all night and his shoulders begin to her because he can't stop shivering. Upon my evaluation patient is shivering and cold. Patient has a button up shirt and leather jacket but no appropriate winter clothing. Patient denies any exertional chest pain, palpitations, shortness of breath nausea or vomiting. - Related Data Home Medications Medication Instructions Recorded Confirmed ARIPiprazole [Abilify] 20 mg PO DAILY 01/19/19 01/19/19 Allergies Allergy/AdvReac Type Severity Reaction Status Date / Time quetiapine [From Seroquel] Allergy Unknown Verified 02/08/19 04:51 Review of Systems ROS Statement: Those systems with pertinent positive or pertinent negative responses have been documented in the HPI. ROS Other: All systems not noted in ROS Statement are negative. Past Medical History Past Medical History: Chest Pain / Angina Additional Past Medical History / Comment(s): Chest Pain but was cleared by cardiology. UTI history History of Any Multi-Drug Resistant Organisms: None Reported Past Surgical History: Unable to Obtain Past Anesthesia/Blood Transfusion Reactions: No Reported Reaction Additional Past Anesthesia/Blood Transfusion Reaction / Comment(s): pt states he has never had a blood transfusion or anesthesia Past Psychological History: Bipolar Smoking Status: Former smoker Past Alcohol Use History: None Reported, Abuse Past Drug Use History: Marijuana General Exam - General Exam Comments Initial Comments: Physical Exam GENERAL: Patient is well-developed and well-nourished. Poor personal hygiene HENT: Normocephalic, Atraumatic. EYES: PERRL, EOMI PULMONARY: Unlabored respirations. No audible rales rhonchi or wheezing was noted. CARDIOVASCULAR: RRR No murmurs, rubs or gallops ABDOMEN: Soft and nontender with normal bowel sounds. SKIN: Skin is cold to touch, goosebumps : Deferred NEUROLOGIC: Patient is alert and oriented x3. Moving all extremities spontaneously MUSCULOSKELETAL: Normal extremities with adequate strength and full range of motion. No lower extremity swelling or edema. No calf tenderness. PSYCHIATRIC: Odd affect Limitations: no limitations Course Vital Signs 02/08/19 02/08/19 02/08/19 04:45 05:10 05:30 Temperature 97.4 F L Pulse Rate 53 L 55 L 52 L Respiratory 20 20 18 Rate Blood Pressure 114/70 114/69 107/70 O2 Sat by Pulse 98 100 100 Oximetry 02/08/19 02/08/19 02/08/19 05:50 06:10 06:30 Temperature Pulse Rate 70 57 L 57 L Respiratory 18 18 18 Rate Blood Pressure 106/74 119/82 113/65 O2 Sat by Pulse 100 100 100 Oximetry 02/08/19 07:55 Temperature 97.7 F Pulse Rate 78 Respiratory 18 Rate Blood Pressure 112/60 O2 Sat by Pulse 97 Oximetry EKG Findings - EKG Comments: EKG Findings:: EKG was obtained per protocol, EKG was obtained at 4:57 AM, rate is 47 rhythm is sinus bradycardia there is normal axis, there are normal intervals, SD 154, care is 98, QTC 378 there are no acute ST elevations or depressions no evidence of acute ischemia or infarction. No EKG findings concerning for severe hypothermia. Medical Decision Making - Medical Decision Making was seen and evaluated history was obtained from the patient. The patient did report to triage she was having chest pain however upon my evaluation patient complained only of inability to stop shivering and being very cold. Patient is been sleeping on the ground outside of a [place] due to homelessness. Patient is very cold on evaluation. Patient was given 2 warm blankets. Triage protocol chest pain orders had been ordered and drawn. I do not feel these were necessary as I do not feel the patient is actually experiencing any chest pain or acute coronary syndrome as he did not complain about this to me at all. Patient said he wanted warm blankets and a place to sleep. Labs did result he has mild leukocytosis likely related upper respiratory infection is been fighting. Labs on the right is negative, troponin is negative patient never complained of any chest pain or palpitations to me. The family filled patient is stable for discharge home. Patient will be given information on local shelters. I did discuss this with the patient who states he is aware of the shelters. Patient hemodynamically stable awake alert and oriented stable for discharge home. - Lab Data Result diagrams: 02/08/19 05:08 02/08/19 05:08 Lab Results 02/08/19 02/08/19 02/08/19 Range/Units 05:08 05:08 05:08 WBC 12.0 H (3.8-10.6) k/uL RBC 5.56 (4.30-5.90) m/uL Hgb 16.2 (13.0-17.5) gm/dL Hct 47.8 (39.0-53.0) % MCV 86.1 (80.0-100.0) fL MCH 29.2 (25.0-35.0) pg MCHC 34.0 (31.0-37.0) g/dL RDW 12.9 (11.5-15.5) % Plt Count 297 (150-450) k/uL Neutrophils % 75 % Lymphocytes % 17 % Monocytes % 6 % Eosinophils % 0 % Basophils % 0 % Neutrophils # 9.0 H (1.3-7.7) k/uL Lymphocytes # 2.0 (1.0-4.8) k/uL Monocytes # 0.7 (0-1.0) k/uL Eosinophils # 0.0 (0-0.7) k/uL Basophils # 0.0 (0-0.2) k/uL PT 9.9 (9.0-12.0) sec INR 0.9 (<1.2) APTT 24.3 (22.0-30.0) sec Sodium 142 (137-145) mmol/L Potassium 4.1 (3.5-5.1) mmol/L Chloride 104 (98-107) mmol/L Carbon Dioxide 29 (22-30) mmol/L Anion Gap 9 mmol/L BUN 12 (9-20) mg/dL Creatinine 0.85 (0.66-1.25) mg/dL Est GFR (CKD-EPI)AfAm >90 (>60 ml/min/1.73 sqM) Est GFR (CKD-EPI)NonAf >90 (>60 ml/min/1.73 sqM) Glucose 74 (74-99) mg/dL Calcium 9.2 (8.4-10.2) mg/dL Magnesium 2.0 (1.6-2.3) mg/dL Total Bilirubin 1.4 H (0.2-1.3) mg/dL AST 23 (17-59) U/L ALT 29 (21-72) U/L Alkaline Phosphatase 86 (38-126) U/L Troponin I (0.000-0.034) ng/mL Total Protein 6.9 (6.3-8.2) g/dL Albumin 4.2 (3.5-5.0) g/dL 02/08/19 Range/Units 05:08 WBC (3.8-10.6) k/uL RBC (4.30-5.90) m/uL Hgb (13.0-17.5) gm/dL Hct (39.0-53.0) % MCV (80.0-100.0) fL MCH (25.0-35.0) pg MCHC (31.0-37.0) g/dL RDW (11.5-15.5) % Plt Count (150-450) k/uL Neutrophils % % Lymphocytes % % Monocytes % % Eosinophils % % Basophils % % Neutrophils # (1.3-7.7) k/uL Lymphocytes # (1.0-4.8) k/uL Monocytes # (0-1.0) k/uL Eosinophils # (0-0.7) k/uL Basophils # (0-0.2) k/uL PT (9.0-12.0) sec INR (<1.2) APTT (22.0-30.0) sec Sodium (137-145) mmol/L Potassium (3.5-5.1) mmol/L Chloride (98-107) mmol/L Carbon Dioxide (22-30) mmol/L Anion Gap mmol/L BUN (9-20) mg/dL Creatinine (0.66-1.25) mg/dL Est GFR (CKD-EPI)AfAm (>60 ml/min/1.73 sqM) Est GFR (CKD-EPI)NonAf (>60 ml/min/1.73 sqM) Glucose (74-99) mg/dL Calcium (8.4-10.2) mg/dL Magnesium (1.6-2.3) mg/dL Total Bilirubin (0.2-1.3) mg/dL AST (17-59) U/L ALT (21-72) U/L Alkaline Phosphatase (38-126) U/L Troponin I <0.012 (0.000-0.034) ng/mL Total Protein (6.3-8.2) g/dL Albumin (3.5-5.0) g/dL Disposition Clinical Impression: Atypical chest pain, Adjustment reaction of adult life Disposition: HOME SELF-CARE Condition: Stable Instructions (If sedation given, give patient instructions): Acute Hypothermia (ED) Is patient prescribed a controlled substance at d/c from ED?: No Referrals: [facility] [Primary Care Provider] - 1-2 days
[2019-02-08 06:42] VITALS: RESP 18
[2019-02-08 06:45] LABS: Basophils % (A) 0 %; Eosinophils % (A) 0 %; HCT 47.8 % (39.0-53.0); HGB 16.2 gm/dL (13.0-17.5); Lymphocytes % (A) 17 %; MCH 29.2 pg (25.0-35.0); MCV 86.1 fL (80.0-100.0); Mean Platelet Volume 6.7; Monocytes # (A) 0.7 k/uL (0-1.0); Monocytes % (A) 6 %; Neutrophils % (A) 75 %; Platelet Count 297 k/uL (150-450); RBC 5.56 m/uL (4.30-5.90); RDW 12.9 % (11.5-15.5)
--- NOTE | 2019-02-08 06:55 | XR ---
EXAMINATION TYPE: XR chest 2V DATE OF EXAM: 02/08/2019 COMPARISON: 08/24/2018 HISTORY: Chest pain TECHNIQUE: Frontal and lateral views of the chest are obtained. FINDINGS: Heart and mediastinum are normal. Lungs are clear. Diaphragm is normal. Bony thorax appear s normal. There are chest leads. IMPRESSION: Normal chest. No change.
[2019-02-08 07:01] LABS: ALT 29 U/L (21-72); AST 23 U/L (17-59); African American GFR (CKD) >90 (>60 ml/min/1.73 sqM); Albumin 4.2 g/dL (3.5-5.0); Alkaline Phosphatase 86 U/L (38-126); Anion Gap 9 mmol/L; Blood Urea Nitrogen 12 mg/dL (9-20); Calcium 9.2 mg/dL (8.4-10.2); Carbon Dioxide 29 mmol/L (22-30); Chloride 104 mmol/L (98-107); Glucose 74 mg/dL (74-99); Non-African American GFR(CKD) >90 (>60 ml/min/1.73 sqM); Potassium 4.1 mmol/L (3.5-5.1); Sodium 142 mmol/L (137-145); Total Bilirubin 1.4 mg/dL (0.2-1.3); Total Protein 6.9 g/dL (6.3-8.2)
[2019-02-08 07:13] LABS: INR 0.9 (<1.2); Partial Thromboplastin Time 24.3 sec (22.0-30.0); Prothrombin Time 9.9 sec (9.0-12.0)
[2019-02-08 07:56] VITALS: BP 112/60; PULSE 78; TEMP 97.7
== END 2019-02-08 07:56 | disposition home or self-care (01) ==
LOC: EC 04:38
DX: F43.20 Adjustment disorder, unspecified (principal); R07.89 Other chest pain; D72.829 Elevated white blood cell count, unspecified; R20.8 Other disturbances of skin sensation; R68.83 Chills (without fever); Z59.0 Homelessness; M25.512 Pain in left shoulder; F31.9 Bipolar disorder, unspecified; Z87.891 Personal history of nicotine dependence; Z88.8 Allergy status to other drugs, medicaments and biological substances; Z79.899 Other long term (current) drug therapy
CPT/HCPCS: 36415; 71046; 80053; 83735; 84484; 85025; 85610; 85730; 93005; 99284

== ENCOUNTER 2019-02-11 17:47 | Emergency (ER) | payer MEDICARE, OTHER ==
[2019-02-11 18:00] VITALS: BP 125/81; PULSE 59; RESP 18; TEMP 98.1
--- NOTE | 2019-02-12 00:29 | ED ---
Psych HPI - General Chief Complaint: Psychiatric Symptoms Stated Complaint: mental health Time Seen by Provider: 02/11/19 18:06 Source: patient, RN notes reviewed Mode of arrival: ambulatory - History of Present Illness Initial Comments: Is a 39-year-old male with a history schizophrenia who is here for evaluation from [facility]. On my evaluation denies any suicidal thought or ideation. His other complaints he apparently is homeless however. He denies any alcohol or drugs. MD Complaint: other - Related Data Home Medications Medication Instructions Recorded Confirmed ARIPiprazole [Abilify] 20 mg PO DAILY 01/19/19 02/11/19 Cholecalciferol [Vitamin D3 (25 5,000 unit PO DAILY 02/11/19 02/11/19 Mcg = 1000 Iu)] Cyanocobalamin (Vitamin B-12) 1,000 mcg PO DAILY 02/11/19 02/11/19 [Vitamin B-12] Allergies Allergy/AdvReac Type Severity Reaction Status Date / Time quetiapine [From Seroquel] Allergy Unknown Verified 02/11/19 19:21 Review of Systems ROS Statement: Those systems with pertinent positive or pertinent negative responses have been documented in the HPI. ROS Other: All systems not noted in ROS Statement are negative. Past Medical History Past Medical History: Chest Pain / Angina Additional Past Medical History / Comment(s): Chest Pain but was cleared by cardiology. UTI history History of Any Multi-Drug Resistant Organisms: None Reported Past Surgical History: No Surgical Hx Reported Past Anesthesia/Blood Transfusion Reactions: No Reported Reaction Additional Past Anesthesia/Blood Transfusion Reaction / Comment(s): pt states he has never had a blood transfusion or anesthesia Past Psychological History: Bipolar Smoking Status: Former smoker Past Alcohol Use History: None Reported, Abuse Past Drug Use History: Marijuana General Exam - General Exam Comments Initial Comments: Is a well-developed well-nourished awake alert oriented times 3 male Limitations: no limitations General appearance: alert, in no apparent distress Head exam: Present: atraumatic, normocephalic, normal inspection Eye exam: Present: normal appearance, PERRL, EOMI. Absent: scleral icterus, conjunctival injection, periorbital swelling ENT exam: Present: normal exam, mucous membranes moist Neck exam: Present: normal inspection. Absent: tenderness, meningismus, lymphadenopathy Respiratory exam: Present: normal lung sounds bilaterally. Absent: respiratory distress, wheezes, rales, rhonchi, stridor Cardiovascular Exam: Present: regular rate, normal rhythm, normal heart sounds. Absent: systolic murmur, diastolic murmur, rubs, gallop, clicks GI/Abdominal exam: Present: soft, normal bowel sounds. Absent: distended, tenderness, guarding, rebound, rigid Extremities exam: Present: normal inspection, full ROM, normal capillary refill. Absent: tenderness, pedal edema, joint swelling, calf tenderness Back exam: Present: normal inspection Neurological exam: Present: alert, oriented X3, CN II-XII intact Psychiatric exam: Present: normal affect, normal mood Skin exam: Present: warm, dry, intact, normal color. Absent: rash Course Vital Signs 02/11/19 17:55 Temperature 98.1 F Pulse Rate 59 L Respiratory 18 Rate Blood Pressure 125/81 O2 Sat by Pulse 100 Oximetry Medical Decision Making - Medical Decision Making Patient was evaluated by psychiatric services she is not a risk to himself or anyone else this time he will be discharged Disposition Clinical Impression: Schizophrenia Disposition: HOME SELF-CARE Condition: Good Instructions (If sedation given, give patient instructions): Schizophrenia (ED) Is patient prescribed a controlled substance at d/c from ED?: No Referrals: [facility] [Primary Care Provider] - 1-2 days
== END 2019-02-12 00:43 | disposition home or self-care (01) ==
LOC: EC 17:47
DX: F20.9 Schizophrenia, unspecified (principal); F31.9 Bipolar disorder, unspecified; Z87.891 Personal history of nicotine dependence; Z79.899 Other long term (current) drug therapy; Z88.8 Allergy status to other drugs, medicaments and biological substances
CPT/HCPCS: 82075; 99284

== ENCOUNTER 2019-03-09 09:58 | Emergency (ER) | payer MEDICARE, OTHER ==
--- NOTE | 2019-03-09 10:31 | ED ---
Psych HPI - General Chief Complaint: Psychiatric Symptoms Stated Complaint: Psych Eval Time Seen by Provider: 03/09/19 10:17 Source: patient Mode of arrival: ambulatory - History of Present Illness Initial Comments: Patient is a 39-year-old male with history of depression, bipolar disorder and anxiety presents to the emergency department with chief complaint of not taking medication. Patient states he has not taken his Abilify for the last 2 days. Patient reports after he forgot to take it once, he did not want to continue taking the medication. Patient reports the second after not taking the Abilify usually drink alcohol impulsively. Patient reports he does not feel "mentally right". Patient reports that he is "thinking more slowly and usual." Patient denies any suicidal, homicidal thoughts or ideations. Patient is only taking Abilify for his conditions. Patient is also complaining of some pain between his neck and left shoulder. He states it appears to be exacerbated whenever he is moving his neck left or right. Patient states that he is homeless. - Related Data Home Medications Medication Instructions Recorded Confirmed ARIPiprazole [Abilify] 20 mg PO DAILY 01/19/19 02/11/19 Cholecalciferol [Vitamin D3 (25 5,000 unit PO DAILY 02/11/19 02/11/19 Mcg = 1000 Iu)] Cyanocobalamin (Vitamin B-12) 1,000 mcg PO DAILY 02/11/19 02/11/19 [Vitamin B-12] Allergies Allergy/AdvReac Type Severity Reaction Status Date / Time quetiapine [From Seroquel] Allergy Unknown Verified 02/11/19 19:21 Review of Systems ROS Statement: Those systems with pertinent positive or pertinent negative responses have been documented in the HPI. ROS Other: All systems not noted in ROS Statement are negative. Past Medical History Past Medical History: Chest Pain / Angina Additional Past Medical History / Comment(s): Chest Pain but was cleared by cardiology. UTI history History of Any Multi-Drug Resistant Organisms: None Reported Past Surgical History: No Surgical Hx Reported Past Anesthesia/Blood Transfusion Reactions: No Reported Reaction Additional Past Anesthesia/Blood Transfusion Reaction / Comment(s): pt states he has never had a blood transfusion or anesthesia Past Psychological History: Bipolar, PTSD Smoking Status: Former smoker Past Alcohol Use History: None Reported, Abuse, Occasional Past Drug Use History: Marijuana General Exam Limitations: no limitations General appearance: alert, in no apparent distress Head exam: Present: atraumatic, normocephalic, normal inspection Eye exam: Present: normal appearance, PERRL, EOMI Pupils: Present: normal accommodation ENT exam: Present: normal exam, normal oropharynx, mucous membranes moist, TM's normal bilaterally (Tympanic membranes are unremarkable bilaterally.), normal external ear exam Neck exam: Present: normal inspection, tenderness (Tenderness along the left trapezius. Reproducible pain with palpation.), full ROM Respiratory exam: Present: normal lung sounds bilaterally Cardiovascular Exam: Present: regular rate, normal rhythm, normal heart sounds Extremities exam: Present: normal inspection, full ROM Back exam: Present: normal inspection, full ROM Neurological exam: Present: alert, oriented X3 Psychiatric exam: Present: normal affect, normal mood Skin exam: Present: warm, dry, intact, normal color Course Vital Signs 03/09/19 03/09/19 03/09/19 10:05 10:11 11:11 Temperature 97.2 F L Pulse Rate 71 66 66 Respiratory 24 20 20 Rate Blood Pressure 124/79 99/64 105/65 O2 Sat by Pulse 96 99 99 Oximetry Medical Decision Making - Medical Decision Making Patient is a 39-year-old male with history of depression, bipolar disorder and anxiety presenting to the emergency department with a chief complaint of not taking medication. Physical examination is remarkable for some musculoskeletal tenderness along the left trapezius. I suspect this is secondary to poor sleeping environment because the patient is homeless. Advised the patient to alternate between Tylenol and ibuprofen for pain control. Patient advised to apply some ice compress to minimize symptoms. Patient denies any suicidal thoughts or ideations. EPS evaluated the patient and they're going to give him a single dose of Abilify in the ED. Safety plan discussed with patient. Patient comfortable going home. Strict return parameters were thoroughly discussed the patient was understanding and agreeable. Case discussed with physician. Disposition Clinical Impression: Noncompliance with medication regimen, Acute anxiety, Depression Disposition: HOME SELF-CARE Condition: Stable Instructions (If sedation given, give patient instructions): Aripiprazole (By mouth) Additional Instructions: Please follow up with a therapist. Please return to emergency department if s ymptoms worsen. Continue taking medication as prescribed. Is patient prescribed a controlled substance at d/c from ED?: No Referrals: [facility] [Primary Care Provider] - 1-2 days Time of Disposition: 12:43
[2019-03-09 11:26] VITALS: PULSE 66
[2019-03-09 13:45] VITALS: BP 112/67; RESP 18; TEMP 98.2
== END 2019-03-09 13:52 | disposition home or self-care (01) ==
LOC: EC 09:58
DX: F31.30 Bipolar disorder, current episode depressed, mild or moderate severity, unspecified (principal); F41.9 Anxiety disorder, unspecified; Z91.14 Patient's other noncompliance with medication regimen; M54.2 Cervicalgia; M25.512 Pain in left shoulder; Z87.891 Personal history of nicotine dependence; Z88.8 Allergy status to other drugs, medicaments and biological substances; Z79.899 Other long term (current) drug therapy; Z59.0 Homelessness
CPT/HCPCS: 82075; 99284

== ENCOUNTER 2019-06-13 02:28 | Emergency (ER) | payer MEDICARE, OTHER ==
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
[2019-06-13 02:39] VITALS: TEMP 98.5
[2019-06-13 03:12] LABS: African American GFR (CKD) >90 (>60 ml/min/1.73 sqM); Albumin 4.2 g/dL (3.5-5.0); Anion Gap 7 mmol/L; Blood Urea Nitrogen 18 mg/dL (9-20); Carbon Dioxide 23 mmol/L (22-30); Chloride 108 mmol/L (98-107); Glucose 122 mg/dL (74-99); Non-African American GFR(CKD) >90 (>60 ml/min/1.73 sqM); Potassium 4.4 mmol/L (3.5-5.1); Sodium 138 mmol/L (137-145); Total Bilirubin 0.7 mg/dL (0.2-1.3)
[2019-06-13 03:13] LABS: ALT 19 U/L (4-49); AST 28 U/L (17-59); Alkaline Phosphatase 129 U/L (38-126); Creatine Kinase 117 U/L (55-170); Magnesium 2.1 mg/dL (1.6-2.3); Phosphorus 3.6 mg/dL (2.5-4.5)
[2019-06-13 03:35] LABS: Creatine Kinase MB 0.8 ng/mL (0.0-2.4); Troponin I <0.012 ng/mL (0.000-0.034)
[2019-06-13 03:40] LABS: Basophils % (A) 1 %; Eosinophils # (A) 0.2 k/uL (0-0.7); Eosinophils % (A) 2 %; HCT 44.5 % (39.0-53.0); HGB 15.5 gm/dL (13.0-17.5); Lymphocytes # (A) 2.7 k/uL (1.0-4.8); Lymphocytes % (A) 35 %; MCH 29.8 pg (25.0-35.0); MCHC 34.8 g/dL (31.0-37.0); MCV 85.5 fL (80.0-100.0); Mean Platelet Volume 7.7; Monocytes # (A) 0.5 k/uL (0-1.0); Monocytes % (A) 7 %; Neutrophils # (A) 4.1 k/uL (1.3-7.7); Neutrophils % (A) 53 %; Platelet Count 276 k/uL (150-450); RDW 13.5 % (11.5-15.5); WBC 7.7 k/uL (3.8-10.6)
--- NOTE | 2019-06-13 04:04 | XR ---
EXAMINATION TYPE: XR chest 1V portable DATE OF EXAM: 06/13/2019 COMPARISON: 02/08/2019 HISTORY: Chest pain TECHNIQUE: FINDINGS: Heart and mediastinum are normal. Lungs are clear. Diaphragm is normal. Bony thorax is inta ct. Exam limited slightly by patient's size. There are chest leads. IMPRESSION: No active cardiopulmonary disease. Normal heart. No change.
[2019-06-13 04:11] VITALS: BP 108/61; PULSE 75; RESP 17
[2019-06-13 04:18] LABS: INR 0.9 (<1.2); Partial Thromboplastin Time 22.5 sec (22.0-30.0); Prothrombin Time 9.6 sec (9.0-12.0)
== END 2019-06-13 04:13 | disposition home or self-care (01) ==
LOC: EC 02:28
DX: R07.89 Other chest pain (principal); R06.00 Dyspnea, unspecified; F31.9 Bipolar disorder, unspecified; Z87.891 Personal history of nicotine dependence; Z95.5 Presence of coronary angioplasty implant and graft; Z79.899 Other long term (current) drug therapy; Z88.8 Allergy status to other drugs, medicaments and biological substances
CPT/HCPCS: 36415; 71045; 80053; 82550; 82553; 83735; 83880; 84100; 84484; 85025; 85610; 85730; 93005; 99285

== ENCOUNTER 2020-03-08 23:31 | Emergency (ER) | payer MEDICARE, OTHER ==
[2020-03-08 23:58] VITALS: BP 117/76; PULSE 91; RESP 18; TEMP 98.4
[2020-03-09] MEDS ORDERED: CEPHALEXIN 500MG STARTER PACK 4 CAP BTL PO STA (00:17)
[2020-03-09] MEDS ORDERED: BACITRACIN OINT 1 EACH PACKET TOPICAL ONE (00:17)
--- NOTE | 2020-03-09 00:20 | ED ---
Skin/Abscess/FB HPI - General Chief complaint: Skin/Abscess/Foreign Body Stated complaint: Bug bites on legs Time Seen by Provider: 03/09/20 00:00 Source: patient Mode of arrival: ambulatory Limitations: no limitations - History of Present Illness Initial comments: 40-year-old male patient presents to the emergency department today for evaluation of itchy wounds to the bilateral ankles. Patient states he started about a week ago his blood bites. States his been very itchy and has been unable to stop himself from scratching them. Patient states that he believes he may be getting infected. Denies any swelling to the ankles. Denies fever or chills. Denies taking any medication for his symptoms. States he has been trying to keep them clean. Patient denies any recent rash, cough, shortness of breath, chest pain, abdominal pain, nausea, vomiting, diarrhea, constipation, back pain, numbness, tingling, dizziness, weakness, hematuria, dysuria, urinary urgency, urinary frequency, headache, visual changes, or any other complaints. - Related Data Home Medications Medication Instructions Recorded Confirmed ARIPiprazole [Abilify] 20 mg PO DAILY 01/19/19 02/11/19 Cholecalciferol [Vitamin D3 (25 5,000 unit PO DAILY 02/11/19 02/11/19 Mcg = 1000 Iu)] Cyanocobalamin (Vitamin B-12) 1,000 mcg PO DAILY 02/11/19 02/11/19 [Vitamin B-12] Previous Rx's Medication Instructions Recorded Bacitracin/Polymyxin B Sulfate 1 applic TOPICAL BID #15 gm 03/09/20 [Polysporin Ointment] Cephalexin [Keflex] 500 mg PO Q6HR #40 cap 03/09/20 hydrOXYzine HCL [Atarax] 25 mg PO TID PRN #15 tab 03/09/20 Allergies Allergy/AdvReac Type Severity Reaction Status Date / Time quetiapine [From Seroquel] Allergy Unknown Verified 03/08/20 23:58 Review of Systems ROS Statement: Those systems with pertinent positive or pertinent negative responses have been documented in the HPI. ROS Other: All systems not noted in ROS Statement are negative. Past Medical History Past Medical History: Chest Pain / Angina Additional Past Medical History / Comment(s): Chest Pain but was cleared by cardiology. UTI history History of Any Multi-Drug Resistant Organisms: None Reported Past Surgical History: No Surgical Hx Reported Past Anesthesia/Blood Transfusion Reactions: No Reported Reaction Additional Past Anesthesia/Blood Transfusion Reaction / Comment(s): pt states he has never had a blood transfusion or anesthesia Past Psychological History: Bipolar, PTSD Smoking Status: Never smoker Past Alcohol Use History: Abuse, Occasional Past Drug Use History: Marijuana General Exam Limitations: no limitations General appearance: alert, in no apparent distress, other (This is a well- developed, well-nourished adult male patient in no acute distress. Vital signs upon presentation are temperature 98.4F, pulse 91, respirations 18, blood pressure 117/76, pulse ox 95% on room air.) Eye exam: Present: normal appearance, PERRL, EOMI. Absent: scleral icterus, conjunctival injection, periorbital swelling ENT exam: Present: normal exam, normal oropharynx, mucous membranes moist Respiratory exam: Present: normal lung sounds bilaterally. Absent: respiratory distress, wheezes, rales, rhonchi, stridor Cardiovascular Exam: Present: regular rate, normal rhythm, normal heart sounds. Absent: systolic murmur, diastolic murmur, rubs, gallop, clicks Extremities exam: Present: full ROM, normal capillary refill, other (There are mulitiple scabbed lesions noted to the bilateral ankles and the dorsal aspect of the left foot. Mild surrounding erythema. No drainage. No swelling. Skin is normal temperature.). Absent: normal inspection, tenderness, pedal edema, joint swelling, calf tenderness Neurological exam: Present: alert, oriented X3, CN II-XII intact Psychiatric exam: Present: normal affect, normal mood Skin exam: Present: warm, dry, intact, normal color. Absent: rash Course Vital Signs 03/08/20 23:53 Temperature 98.4 F Pulse Rate 91 Respiratory 18 Rate Blood Pressure 117/76 O2 Sat by Pulse 95 Oximetry Medical Decision Making - Medical Decision Making 40-year-old male patient presented to the emergency department today for eval uation of multiple scabbed lesions to the bilateral ankles and foot. States he started as bug bites and he has been unable to control himself from itching. Physical examination did reveal multiple scabbed lesions with mild surrounding erythema, no drainage. Skin is normal temperature. We'll give a prescription for Keflex, bacitracin, and Atarax for itching. He is instructed to follow-up with primary care physician for recheck in 1-2 days. Return parameters were discussed in detail. He verbalizes understanding and agrees with this plan to Disposition Clinical Impression: Insect bite, Cellulitis Disposition: HOME SELF-CARE Condition: Good Instructions (If sedation given, give patient instructions): Cellulitis (ED), Insect Bite or Sting (ED), Acute Wound Care (ED) Additional Instructions: Take medications as instructed. Follow-up with your primary care physician for recheck in 1-2 days. Return to the emergency department for any new, worsening, or concerning symptoms Prescriptions: hydrOXYzine HCL [Atarax] 25 mg PO TID PRN #15 tab PRN Reason: Itching Cephalexin [Keflex] 500 mg PO Q6HR #40 cap Bacitracin/Polymyxin B Sulfate [Polysporin Ointment] 1 applic TOPICAL BID #15 gm Is patient prescribed a controlled substance at d/c from ED?: No Referrals: [facility] [Primary Care Provider] - 1-2 days Time of Disposition: 00:20
[2020-03-09] MEDS ORDERED: hydrOXYzine HCL 25 MG TAB PO ONE (00:30)
== END 2020-03-09 00:40 | disposition home or self-care (01) ==
LOC: EC 23:31
DX: L03.116 Cellulitis of left lower limb (principal); L03.115 Cellulitis of right lower limb; F31.9 Bipolar disorder, unspecified; F43.10 Post-traumatic stress disorder, unspecified; Z79.899 Other long term (current) drug therapy; Z88.8 Allergy status to other drugs, medicaments and biological substances; W57.XXXA Bitten or stung by nonvenomous insect and other nonvenomous arthropods, initial encounter
CPT/HCPCS: 99282

== ENCOUNTER 2020-04-28 21:09 | Inpatient (IN) | payer MEDICARE, MEDICAID ==
[2020-04-28] MEDS ORDERED: KETOROLAC 15 MG/ML 1 ML VIAL IVP STA (21:47)
[2020-04-28] MEDS ORDERED: SODIUM CHLORIDE 0.9% 1,000 ML IV STA (21:47)
[2020-04-28] MEDS ORDERED: METOCLOPRAMIDE 5 MG/ML 2 ML VIAL IVP STA (21:47)
[2020-04-28] MEDS ORDERED: diphenhydrAMINE 50 MG/ML 1 ML VIAL IVP STA (21:47)
[2020-04-28] MEDS ORDERED: DEXAMETHASONE SOD PHOSPHATE 10 MG/ML 1 ML VIAL IV STA (21:51)
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
[2020-04-28 22:40] LABS: Basophils % (A) 0 %; Eosinophils # (A) 0.2 k/uL (0-0.7); Eosinophils % (A) 2 %; HCT 46.5 % (39.0-53.0); HGB 16.1 gm/dL (13.0-17.5); Lymphocytes # (A) 2.6 k/uL (1.0-4.8); Lymphocytes % (A) 31 %; MCH 29.2 pg (25.0-35.0); MCHC 34.6 g/dL (31.0-37.0); MCV 84.4 fL (80.0-100.0); Mean Platelet Volume 6.8; Monocytes # (A) 0.5 k/uL (0-1.0); Monocytes % (A) 5 %; Neutrophils # (A) 5.2 k/uL (1.3-7.7); Neutrophils % (A) 61 %; Platelet Count 273 k/uL (150-450); RBC 5.51 m/uL (4.30-5.90); RDW 13.3 % (11.5-15.5); WBC 8.6 k/uL (3.8-10.6)
[2020-04-28 22:54] LABS: ALT 29 U/L (4-49); AST 27 U/L (17-59); African American GFR (CKD) >90 (>60 ml/min/1.73 sqM); Albumin 3.7 g/dL (3.5-5.0); Alkaline Phosphatase 74 U/L (38-126); Anion Gap 6 mmol/L; Blood Urea Nitrogen 13 mg/dL (9-20); Calcium 8.9 mg/dL (8.4-10.2); Carbon Dioxide 27 mmol/L (22-30); Chloride 106 mmol/L (98-107); Glucose 133 mg/dL (74-99); Non-African American GFR(CKD) >90 (>60 ml/min/1.73 sqM); Sodium 139 mmol/L (137-145); Total Bilirubin 0.8 mg/dL (0.2-1.3); Total Protein 6.2 g/dL (6.3-8.2)
--- NOTE | 2020-04-28 22:54 | XR ---
EXAMINATION TYPE: XR chest 2V DATE OF EXAM: 04/28/2020 COMPARISON: 06/13/2019 HISTORY: Chest pain TECHNIQUE: FINDINGS: Heart and mediastinum are normal. Lungs are clear of infiltrate. There is no heart failure. There is slight elevated right diaphragm. Bony thorax is intact. IMPRESSION: Mild chronic elevation of the right diaphragm unchanged. Normal heart.
[2020-04-28 23:07] LABS: INR 0.9 (<1.2); Partial Thromboplastin Time 23.1 sec (22.0-30.0); Prothrombin Time 9.8 sec (9.0-12.0)
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
[2020-04-29 02:21] LABS: Appearance,Urine Clear (Clear); Bilirubin,Urine Negative (Negative); Blood,Urine Negative (Negative); Color,Urine Yellow; Glucose,Urine (UA) Negative (Negative); Hyaline Casts,Urine 2 /lpf (0-2); Ketones,Urine Negative (Negative); Leukocyte Esterase,Urine Small (Negative); Mucus,Urine Many /hpf; Nitrite,Urine Negative (Negative); Protein,Urine Trace (Negative); RBC,Urine 6 /hpf (0-5); Specific Gravity,Urine 1.025 (1.001-1.035); Squamous Epithelial Cell,Urine 6 /hpf (0-4); WBC,Urine 27 /hpf (0-5)
[2020-04-29 02:25] LABS: Amphetamine Screen,Urine Not Detected (NotDetected); Barbiturate Screen,Urine Not Detected (NotDetected); Benzodiazepines Screen,Urine Not Detected (NotDetected); Cocaine Screen,Urine Not Detected (NotDetected); Methadone Screen, Urine Not Detected (NotDetected); Opiate Screen,Urine Not Detected (NotDetected); Oxycodone Screen, Urine Not Detected (NotDetected); Phencyclidine Screen,Urine Not Detected (NotDetected); Tricyclic Antidepressant,Urine Not Detected (NotDetected); Urn Cannabinoid Scrn Detected (NotDetected)
[2020-04-29] MEDS ORDERED: ACETAMINOPHEN TAB 325 MG TAB PO PRN (02:43)
[2020-04-29] MEDS ORDERED: MAG HYDROX/AL HYDROX/SIMETH 30 ML CUP PO PRN (02:43)
[2020-04-29] MEDS ORDERED: MAGNESIUM HYDROXIDE 2,400 MG/10 ML CUP PO PRN (02:43)
[2020-04-29] MEDS ORDERED: haloperidoL 5 MG TAB PO PRN (02:48)
[2020-04-29] MEDS ORDERED: HALOPERIDOL LACTATE 5 MG/ML 1 ML VIAL IM PRN (02:48)
[2020-04-29] MEDS ORDERED: hydrOXYzine pamoate 25 MG CAP PO PRN (02:49)
--- NOTE | 2020-04-29 06:14 | P.PN ---
Progress Note - Text Progress Note Date: 04/29/20 notified of new admit, patient currently medicated and sleeping
[2020-04-29] MEDS: CHOLECALCIFEROL 25 MCG (1000 IU) TABLET PO SCH (07:50)
[2020-04-29] MEDS: CYANOCOBALAMIN 500 MCG TAB PO SCH (07:50)
[2020-04-29] MEDS ORDERED: busPIRone HCl 5 MG TAB PO ONE (08:45)
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
[2020-04-29] MEDS ORDERED: busPIRone HCl 10 MG TAB PO SCH ×2 (09:00)
[2020-04-29] MEDS ORDERED: INFLUENZA VACCINE (6 MOS+) 60 MCG/0.5 ML SYRINGE IM ONE (09:00)
[2020-04-29] MEDS: ESCITALOPRAM 10 MG TAB PO SCH (09:21)
[2020-04-29 12:00] LABS: Hemoglobin A1C 5.4 % (4.0-6.0)
[2020-04-29] MEDS: hydrOXYzine pamoate 25 MG CAP PO PRN (15:19)
[2020-04-29] MEDS ORDERED: busPIRone HCl 5 MG TAB PO SCH (21:00)
[2020-04-30] MEDS: busPIRone HCl 10 MG TAB PO SCH (07:54)
[2020-04-30] MEDS: CHOLECALCIFEROL 25 MCG (1000 IU) TABLET PO SCH (07:54)
[2020-04-30] MEDS: CYANOCOBALAMIN 500 MCG TAB PO SCH (07:55)
[2020-04-30] MEDS: ESCITALOPRAM 10 MG TAB PO SCH (07:55)
--- NOTE | 2020-04-30 09:44 | P.PN ---
Progress Note - Text Progress Note Date: 04/30/20 Interval History: Patient was seen attending group this morning and was directable and agreeable to speak with keno writer/runner in the office. Patient appears to be mildly less anxious today however has some hesitation in his voice/speech. He claims that he is trying to attend groups as much as he can and feels that he is getting more out of his hospitalization. He continues to be focused on discharge and minimizing some of his symptoms. He states that his mood has been gradually improving. He states that he was able to sleep better last night and did not need to take a Vistaril at nighttime as he believes that he would. He states that he will speak to his sister today and have her come to visit tomorrow on the unit. At this time patient denies any suicidal or homical ideations, intent or plan. Patient denies any auditory, visual hallucinations and denies any paranoia or delusions. Patient denies any side effects from the medications and has been compliant with meds. Mental Status Exam: General Appearance: Patient appears to be overweight, bald, stated age is alert, directable and attempts to be cooperative. Patient has fair hygiene and fair grooming and is wearing street clothing. Behavior: Patient is calmly seated without any agitated behavior. Speech: Patient's speech is fluent and nonpressured. Hesitant Mood/Affect: Patient reports their mood is "a bit better", affect is congruent and somewhat anxious. Suicidality/Homicidality: Patient denies having any suicidal or homicidal ideation intent or plan. Perceptions: Patient denies any auditory or visual hallucinations. Though content/process: There is no evidence of any delusional thought content and thought process. No paranoia. Goal oriented. Focused on his symptoms and discharge. Memory and concentration: AOX3, grossly intact for the purposes of this session Judgment and insight: Fair Assessment Schizoaffective disorder, bipolar type Cannabis use disorder, mild Plan: -Patient continues to meet criteria for inpatient psychiatric admission for symptom stabilization and safety. Patient has signed [adult voluntary form and] medication consent and was placed in patient's chart. -Medications: Continue with Lexapro 10 mg daily for mood/anxiety, Abilify 20 mg daily for mood stabilization/psychosis, BuSpar 20 mg daily for anxiety, Vistaril when necessary for anxiety. -When necessary Haldol for agitation/aggression. -NRT - not needed as patient does not smoke -SW on board for discharge planning. Encouraged the patient to participate in milieu. Likely discharge early next week back home if patient improves over the weekend.
[2020-04-30] MEDS: hydrOXYzine pamoate 25 MG CAP PO PRN (18:41)
[2020-05-01] MEDS: CHOLECALCIFEROL 25 MCG (1000 IU) TABLET PO SCH (07:50)
[2020-05-01] MEDS: busPIRone HCl 10 MG TAB PO SCH (07:50)
[2020-05-01] MEDS: ESCITALOPRAM 10 MG TAB PO SCH (07:51)
[2020-05-01] MEDS: CYANOCOBALAMIN 500 MCG TAB PO SCH (07:51)
--- NOTE | 2020-05-01 09:50 | P.PN ---
Progress Note - Text Progress Note Date: 05/01/20 Interval History: Patient was seen lying in his bed this morning and was directable and agreeable to speak with sports book writer in the office. Patient appears to be mildly less anxious today once again today. He states that last night there was a lot of "commotion on the unit" and states that he was feeling more anxious than usual and was again feeling anxious this morning. He states that he would like to be started on scheduled Vistaril. He was agreeable to have his Lexapro increased in claims that his mood is only been mildly improving however still feel depressed today. He claims that he is trying to attend groups as much as he can and feels that he is getting more out of his hospitalization. He states that he only slept approximately 3-4 hours last night. At this time patient denies any suicidal or homical ideations, intent or plan. Patient denies any auditory, visual hallucinations and denies any paranoia or delusions. Patient denies any side effects from the medications and has been compliant with meds. Mental Status Exam: General Appearance: Patient appears to be overweight, bald, stated age is alert, directable and attempts to be cooperative. Patient has fair hygiene and fair grooming and is wearing street clothing. Behavior: Patient is calmly seated without any agitated behavior. Speech: Patient's speech is fluent and nonpressured. Hesitant Mood/Affect: Patient reports their mood is "depressed still but a bit better ", affect is congruent and anxious. Suicidality/Homicidality: Patient denies having any suicidal or homicidal ideation intent or plan. Perceptions: Patient denies any auditory or visual hallucinations. Though content/process: There is no evidence of any delusional thought content and thought process. No paranoia. Goal oriented. Focused on his symptoms Memory and concentration: AOX3, grossly intact for the purposes of this session Judgment and insight: Fair Assessment Schizoaffective disorder, bipolar type Cannabis use disorder, mild Plan: -Patient continues to meet criteria for inpatient psychiatric admission for symptom stabilization and safety. Patient has signed [adult voluntary form and] medication consent and was placed in patient's chart. -Medications: Increased Lexapro 20 mg daily for mood/anxiety, Abilify 20 mg daily for mood stabilization/psychosis, BuSpar 20 mg daily for anxiety, started Vistaril 25 mg twice a day scheduled for anxiety along with Vistaril when necessary for anxiety. -When necessary Haldol for agitation/aggression. -NRT - not needed as patient does not smoke -SW on board for discharge planning. Encouraged the patient to participate in milieu. Likely discharge early next week back home if patient improves over the weekend.
[2020-05-01] MEDS: hydrOXYzine pamoate 25 MG CAP PO SCH ×2 (11:14→20:55)
[2020-05-02] MEDS: busPIRone HCl 10 MG TAB PO SCH (08:41)
[2020-05-02] MEDS: CYANOCOBALAMIN 500 MCG TAB PO SCH (08:42)
[2020-05-02] MEDS: CHOLECALCIFEROL 25 MCG (1000 IU) TABLET PO SCH (08:42)
[2020-05-02] MEDS: hydrOXYzine pamoate 25 MG CAP PO SCH (08:42)
[2020-05-02] MEDS: ESCITALOPRAM 20 MG TAB PO SCH (08:42)
[2020-05-02] MEDS ORDERED: hydrOXYzine pamoate 25 MG CAP PO PRN (09:47)
--- NOTE | 2020-05-02 09:51 | P.PN ---
Progress Note - Text Progress Note Date: 05/02/20 Interval History: Patient was seen lying in his bed this morning and was directable and agreeable to speak with investment underwriter in the office. Patient appears to be mildly less anxious today once again today however states that he feels the Vistaril scheduled in the morning is "too much" and he states that after that he was feeling sleepy and went back to bed. He claims that he would prefer to take the Vistaril as needed whenever she feels anxious. He states that his mood has been gradually improving while on the unit has been talking with other patients and attending all the groups. He claims that he was able to sleep fairly last night with no overnight complaints. He claims his appetite has been fair and has been showering daily. At this time patient denies any suicidal or homical ideations, intent or plan. Patient denies any auditory, visual hallucinations and denies any paranoia or delusions. Patient denies any side effects from the medications and has been compliant with meds. Mental Status Exam: General Appearance: Patient appears to be overweight, bald, stated age is alert, directable and attempts to be cooperative. Patient has fair hygiene and fair grooming and is wearing street clothing. Behavior: Patient is calmly seated without any agitated behavior. Speech: Patient's speech is fluent and nonpressured. Hesitant, improving mildly Mood/Affect: Patient reports their mood is "better ", affect is congruent and anxious, improving mildly Suicidality/Homicidality: Patient denies having any suicidal or homicidal ideation intent or plan. Perceptions: Patient denies any auditory or visual hallucinations. Though content/process: There is no evidence of any delusional thought content and thought process. No paranoia. Goal oriented. Memory and concentration: AOX3, grossly intact for the purposes of this session Judgment and insight: Fair, improving mildly Assessment Schizoaffective disorder, bipolar type Cannabis use disorder, mild Plan: -Patient continues to meet criteria for inpatient psychiatric admission for symptom stabilization and safety. Patient has signed adult voluntary form and medication consent and was placed in patient's chart. -Medications: continue with Lexapro 20 mg daily for mood/anxiety, Abilify 20 mg daily for mood stabilization/psychosis, increased BuSpar 20 mg daily for anxiety, changed Vistaril 25 mg three times a day PRN for anxiety. -When necessary Haldol for agitation/aggression. -NRT - not needed as patient does not smoke -SW on board for discharge planning. Encouraged the patient to participate in milieu. Likely discharge tomorrow back home with [facility] follow up.
[2020-05-03 07:03] VITALS: BP 104/62; PULSE 57; RESP 16; TEMP 97.9
[2020-05-03] MEDS: CYANOCOBALAMIN 500 MCG TAB PO SCH (08:10)
[2020-05-03] MEDS: ESCITALOPRAM 20 MG TAB PO SCH (08:10)
[2020-05-03] MEDS: CHOLECALCIFEROL 25 MCG (1000 IU) TABLET PO SCH (08:10)
[2020-05-03] MEDS ORDERED: busPIRone HCl 10 MG TAB PO SCH (09:00)
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
== END 2020-05-03 09:50 | disposition home or self-care (01) | DRG 885 ==
LOC: EC 21:09 → 3MHU 04-29 02:40
PROVIDERS: ADMIT Psychiatry & Neurology Psychiatry; ATTEND Psychiatry & Neurology Psychiatry
DX: F25.0 Schizoaffective disorder, bipolar type (principal); R45.851 Suicidal ideations; F41.9 Anxiety disorder, unspecified; F12.10 Cannabis abuse, uncomplicated; E66.3 Overweight; R51.9 Headache, unspecified; Z20.822 Contact with and (suspected) exposure to COVID-19; Z88.8 Allergy status to other drugs, medicaments and biological substances; Z87.891 Personal history of nicotine dependence; Z56.0 Unemployment, unspecified; Z79.899 Other long term (current) drug therapy
CPT/HCPCS: 36415; 70450; 71046; 72125; 80053; 80061; 80306; 81001; 83036; 84443; 84484; 85025; 85610; 85730; 87635; 90686; 93005; 96361; 96374; 96375; 99285

== ENCOUNTER 2020-07-22 01:16 | Emergency (ER) | payer MEDICARE, OTHER ==
[2020-07-22 01:24] VITALS: BP 134/78; PULSE 119; RESP 20; TEMP 98.4
--- NOTE | 2020-07-22 02:48 | ED ---
Psych HPI - General Chief Complaint: Psychiatric Symptoms Stated Complaint: Mental Health Time Seen by Provider: 07/22/20 02:07 Source: patient, police Mode of arrival: ambulatory - Related Data Previous Rx's Medication Instructions Recorded ARIPiprazole [Abilify] 20 mg PO DAILY 30 Days tab 05/03/20 Cholecalciferol [Vitamin D3 (25 100 mcg PO DAILY 30 Days tablet 05/03/20 Mcg = 1000 Iu)] Cyanocobalamin [Vitamin B-12] 1,000 mcg PO DAILY 30 Days tab 05/03/20 Escitalopram [Lexapro] 20 mg PO DAILY 30 Days tab 05/03/20 busPIRone HCl [Buspar] 30 mg PO DAILY 30 Days tab 05/03/20 hydrOXYzine pamoate [Vistaril] 25 mg PO BID PRN 30 Days cap 05/03/20 Allergies Allergy/AdvReac Type Severity Reaction Status Date / Time quetiapine [From Seroquel] Allergy Unknown Verified 07/22/20 01:24 Review of Systems ROS Statement: Those systems with pertinent positive or pertinent negative responses have been documented in the HPI. ROS Other: All systems not noted in ROS Statement are negative. Past Medical History Past Medical History: Chest Pain / Angina Additional Past Medical History / Comment(s): Chest Pain but was cleared by cardiology. UTI history History of Any Multi-Drug Resistant Organisms: None Reported Past Surgical History: No Surgical Hx Reported Past Anesthesia/Blood Transfusion Reactions: No Reported Reaction Additional Past Anesthesia/Blood Transfusion Reaction / Comment(s): pt states he has never had a blood transfusion or anesthesia Past Psychological History: Anxiety, Bipolar, Depression, PTSD Smoking Status: Former smoker Past Alcohol Use History: None Reported Past Drug Use History: Marijuana General Exam Limitations: no limitations Course Vital Signs 07/22/20 01:18 Temperature 98.4 F Pulse Rate 119 H Respiratory 20 Rate Blood Pressure 134/78 O2 Sat by Pulse 97 Oximetry Disposition Clinical Impression: Schizoaffective disorder, bipolar type, Anger reaction Disposition: HOME SELF-CARE Condition: Fair Instructions (If sedation given, give patient instructions): Mood Disorders (ED) Is patient prescribed a controlled substance at d/c from ED?: No Referrals: [facility] [Primary Care Provider] - 1-2 days
== END 2020-07-22 04:07 | disposition home or self-care (01) ==
LOC: EC 01:16
DX: F25.0 Schizoaffective disorder, bipolar type (principal); R45.4 Irritability and anger; F41.9 Anxiety disorder, unspecified; F32.9 Major depressive disorder, single episode, unspecified; F12.90 Cannabis use, unspecified, uncomplicated; Z87.891 Personal history of nicotine dependence; Z79.899 Other long term (current) drug therapy
CPT/HCPCS: 82075; 99284

== ENCOUNTER 2020-07-24 20:41 | Emergency (ER) | payer MEDICARE, OTHER ==
[2020-07-24 20:46] VITALS: TEMP 98.4
--- NOTE | 2020-07-24 20:56 | ED ---
General Adult HPI - General Chief complaint: Fall Stated complaint: Chest Pain Time Seen by Provider: 07/24/20 20:55 Source: patient Mode of arrival: ambulatory Limitations: no limitations - History of Present Illness Initial comments: Patient presents the ED (patient states that he drove himself here) stating that he fell off of his skateboard just prior to coming to the ED this evening, injuring his right chest wall. Patient is complaining of having right anterior chest wall pain since falling. Patient denies any other site of pain. Patient admits to head injury, but he denies LOC or headache. Patient denies focal numbness/weakness/neuro deficit, neck/back/extremity pain, dyspnea, dizziness, palpitations, abdominal pain, nausea or vomiting, or any other symptoms or complaints. Patient denies alcohol or drug abuse. - Related Data Previous Rx's Medication Instructions Recorded ARIPiprazole [Abilify] 20 mg PO DAILY 30 Days tab 05/03/20 Cholecalciferol [Vitamin D3 (25 100 mcg PO DAILY 30 Days tablet 05/03/20 Mcg = 1000 Iu)] Cyanocobalamin [Vitamin B-12] 1,000 mcg PO DAILY 30 Days tab 05/03/20 Escitalopram [Lexapro] 20 mg PO DAILY 30 Days tab 05/03/20 busPIRone HCl [Buspar] 30 mg PO DAILY 30 Days tab 05/03/20 hydrOXYzine pamoate [Vistaril] 25 mg PO BID PRN 30 Days cap 05/03/20 Allergies Allergy/AdvReac Type Severity Reaction Status Date / Time quetiapine [From Seroquel] Allergy Unknown Verified 07/24/20 20:46 Review of Systems ROS Statement: Those systems with pertinent positive or pertinent negative responses have been documented in the HPI. ROS Other: All systems not noted in ROS Statement are negative. Past Medical History Past Medical History: Chest Pain / Angina Additional Past Medical History / Comment(s): Chest Pain but was cleared by cardiology. UTI history History of Any Multi-Drug Resistant Organisms: None Reported Past Surgical History: No Surgical Hx Reported Past Anesthesia/Blood Transfusion Reactions: No Reported Reaction Additional Past Anesthesia/Blood Transfusion Reaction / Comment(s): pt states he has never had a blood transfusion or anesthesia Past Psychological History: Anxiety, Bipolar, Depression, PTSD Smoking Status: Former smoker Past Alcohol Use History: None Reported Past Drug Use History: Marijuana General Exam Limitations: no limitations General appearance: alert, in no apparent distress Head exam: Present: atraumatic, normocephalic Eye exam: Present: normal appearance, PERRL, EOMI ENT exam: Present: mucous membranes moist Neck exam: Present: normal inspection, other (Trachea is in midline). Absent: tenderness Respiratory exam: Present: normal lung sounds bilaterally, respiratory distress, wheezes, rales, rhonchi, stridor, other (Right anterior chest wall tenderness which reproduces the patient's pain; no ecchymosis, crepitation or deformity is appreciated) Cardiovascular Exam: Present: regular rate, normal rhythm, normal heart sounds, other (Normal radial pulses bilaterally) GI/Abdominal exam: Present: soft. Absent: tenderness, guarding Extremities exam: Present: full ROM, other (Pelvis is stable and nontender). Absent: tenderness, pedal edema, calf tenderness Back exam: Present: normal inspection. Absent: tenderness Neurological exam: Present: alert, oriented X3, CN II-XII intact. Absent: motor sensory deficit Psychiatric exam: Present: flat affect Skin exam: Present: warm, dry, intact, normal color Course Vital Signs 07/24/20 07/24/20 20:43 22:14 Temperature 98.4 F Pulse Rate 103 H 78 Respiratory 24 16 Rate Blood Pressure 150/87 132/78 O2 Sat by Pulse 97 98 Oximetry - Reevaluation(s) Reevaluation #1: 07/24/20 22:30 Patient remains alert and breathing comfortably with a normal room air oxygen saturation. Patient denies development of any new pain or symptoms while in the ED. Patient is aware of his negative imaging reports, and he feels comfortable going home at this time. Patient was counseled about chest wall contusions and head injuries, and he was clearly explained return and follow-up instructions. Patient was instructed to have a low threshold for return to the emergency department should his symptoms worsen. Patient was also instructed to follow up closely with his primary care provider. Patient feels comfortable with this plan. EKG Findings - EKG Comments: EKG Findings:: Normal sinus rhythm, ventricular rate of 93 bpm, normal UT and QRS intervals, normal QT interval, normal axis, no ST or T-wave abnormality Medical Decision Making - Medical Decision Making Patient has been alert and breathing comfortably with a normal room oxygen saturation while in the ED. Patient's imaging reports are negative. I do not suspect a significant traumatic injury or emergent medical condition at this ti me. Will discharge patient home from the ED at this time. - Radiology Data Radiology results: report reviewed (Noncontrast head CT is negative; right ribs/chest x-rays are negative) Disposition Clinical Impression: Chest wall contusion, Fall, Head injury Disposition: HOME SELF-CARE Condition: Stable Instructions (If sedation given, give patient instructions): Contusion in Adults (ED), Fall Prevention (ED) Additional Instructions: Return to the ER immediately should you develop new or worsening pain or symptoms. Follow up closely with your primary care provider. Is patient prescribed a controlled substance at d/c from ED?: No Referrals: [facility] [Primary Care Provider] - 1-2 days Time of Disposition: 22:36
--- NOTE | 2020-07-24 21:58 | XR ---
Result: History: Right-sided chest pain status post fall. Comparison: Radiographs 04/28/2020. Technique: 4 views of the right ribs with PA chest. Findings: There is no definite displaced rib fracture. The visualized osseous structures are in anatomic align ment. The cardiac silhouette is within normal limits for size and appearance. The lungs are clear without evidence of focal consolidation, pleural effusion, pulmonary edema, or pneumothorax. Impression: 1. No definite displaced rib fracture is seen. 2. No acute cardiopulmonary abnormality.
--- NOTE | 2020-07-24 22:02 | CT ---
EXAMINATION TYPE: CT brain wo con DATE OF EXAM: 07/24/2020 COMPARISON: 04/28/2020 HISTORY: altered mental status CT DLP: 1217.4 mGycm. Automated Exposure Control for Dose Reduction was Utilized. TECHNIQUE: CT scan of the head is performed without contrast. FINDINGS: There is no acute intracranial hemorrhage, mass effect, or midline shift identified. The ventricles and sulci are within normal limits in size. The globes are intact and the visualized sin uses are clear. IMPRESSION: No acute intracranial hemorrhage, mass effect, or midline shift is seen.
[2020-07-24 22:15] VITALS: RESP 16
[2020-07-24 23:00] VITALS: BP 101/63; PULSE 80
== END 2020-07-24 23:00 | disposition home or self-care (01) ==
LOC: EC 20:41
DX: S20.211A Contusion of right front wall of thorax, initial encounter (principal); S09.90XA Unspecified injury of head, initial encounter; F41.9 Anxiety disorder, unspecified; F32.9 Major depressive disorder, single episode, unspecified; F12.90 Cannabis use, unspecified, uncomplicated; Z87.891 Personal history of nicotine dependence; V00.131A Fall from skateboard, initial encounter
CPT/HCPCS: 70450; 99284

== ENCOUNTER 2020-10-01 15:20 | Emergency (ER) | payer MEDICARE, OTHER ==
[2020-10-01] MEDS ORDERED: PANTOPRAZOLE 40 MG/10 ML VIAL IVP STA (15:33)
[2020-10-01] MEDS ORDERED: SODIUM CHLORIDE 0.9% 1,000 ML IV STA (15:33)
[2020-10-01 16:13] LABS: HCT 47.6 % (39.0-53.0); HGB 16.4 gm/dL (13.0-17.5); MCH 29.6 pg (25.0-35.0); MCHC 34.5 g/dL (31.0-37.0); MCV 85.7 fL (80.0-100.0); Mean Platelet Volume 7.4; Neutrophils % (A) 67 %; Platelet Count 306 k/uL (150-450); RBC 5.56 m/uL (4.30-5.90); RDW 13.3 % (11.5-15.5); WBC 11.2 k/uL (3.8-10.6)
[2020-10-01 16:14] LABS: Basophils # (A) 0.1 k/uL (0-0.2); Basophils % (A) 1 %; Eosinophils # (A) 0.2 k/uL (0-0.7); Eosinophils % (A) 2 %; Lymphocytes # (A) 2.6 k/uL (1.0-4.8); Lymphocytes % (A) 23 %; Monocytes # (A) 0.7 k/uL (0-1.0); Monocytes % (A) 6 %; Neutrophils # (A) 7.4 k/uL (1.3-7.7)
[2020-10-01 16:22] LABS: ALT 36 U/L (4-49); AST 40 U/L (17-59); African American GFR (CKD) >90 (>60 ml/min/1.73 sqM); Albumin 3.9 g/dL (3.5-5.0); Alkaline Phosphatase 92 U/L (38-126); Anion Gap 8 mmol/L; Blood Urea Nitrogen 14 mg/dL (9-20); Calcium 9.3 mg/dL (8.4-10.2); Carbon Dioxide 23 mmol/L (22-30); Chloride 105 mmol/L (98-107); Glucose 121 mg/dL (74-99); Magnesium 2.1 mg/dL (1.6-2.3); Non-African American GFR(CKD) >90 (>60 ml/min/1.73 sqM); Potassium 4.5 mmol/L (3.5-5.1); Sodium 136 mmol/L (137-145); Total Bilirubin 0.6 mg/dL (0.2-1.3); Total Protein 6.7 g/dL (6.3-8.2)
[2020-10-01 16:25] LABS: Appearance,Urine Clear (Clear); Bacteria,Urine Rare /hpf; Bilirubin,Urine Negative (Negative); Blood,Urine Negative (Negative); Color,Urine Yellow; Glucose,Urine (UA) Negative (Negative); Ketones,Urine Negative (Negative); Leukocyte Esterase,Urine Trace (Negative); Mucus,Urine Moderate /hpf; Nitrite,Urine Negative (Negative); PH, Urine 5.5 (5.0-8.0); Protein,Urine Trace (Negative); RBC,Urine 2 /hpf (0-5); Squamous Epithelial Cell,Urine <1 /hpf (0-4); WBC,Urine 6 /hpf (0-5)
[2020-10-01 16:27] LABS: INR 0.9 (<1.2); Prothrombin Time 9.6 sec (9.0-12.0)
--- NOTE | 2020-10-01 16:31 | XR ---
EXAMINATION TYPE: XR chest 2V DATE OF EXAM: 10/01/2020 COMPARISON: 04/28/2020 HISTORY: Chest pain TECHNIQUE: Frontal and lateral views of the chest are obtained. FINDINGS: There is no focal air space opacity, pleural effusion, or pneumothorax seen. The cardiac silhouette size is within normal limits. The osseous structures are intact. IMPRESSION: No acute cardiopulmonary process.
--- NOTE | 2020-10-01 16:40 | ED ---
General Adult HPI - General Chief complaint: Dizziness Stated complaint: Black Stool/Dizziness Time Seen by Provider: 10/01/20 15:26 Source: patient, RN notes reviewed, old records reviewed Mode of arrival: wheelchair Limitations: no limitations - History of Present Illness Initial comments: 40-year-old male visiting for evaluation of lightheadedness, dizziness, and dark stool. Patient states that over the past several days he's had dark stool. He was concerned that he may have had some internal bleeding. He did have some indigestion and heartburn. He denies central chest pain. Denies focal numbness or weakness. Denied headache. Denied fever. Not vomiting or diarrhea. States he has had some recent medication changes with his antidepressant medication. - Related Data Home Medications Medication Instructions Recorded Confirmed Cholecalciferol [Vitamin D3 (25 125 mcg PO DAILY 10/01/20 10/01/20 Mcg = 1000 Iu)] Fluticasone Nasal [place] [Flonase 1 spr EA NOSTRIL DAILY PRN 10/01/20 10/01/20 Nasal [place]] Imipramine HCl [Tofranil] 50 mg PO DAILY 10/01/20 10/01/20 busPIRone HCL [Buspar] 30 mg PO DAILY 10/01/20 10/01/20 Previous Rx's Medication Instructions Recorded ARIPiprazole [Abilify] 20 mg PO DAILY 30 Days tab 05/03/20 Cyanocobalamin [Vitamin B-12] 1,000 mcg PO DAILY 30 Days tab 05/03/20 hydrOXYzine pamoate [Vistaril] 25 mg PO BID PRN 30 Days cap 05/03/20 Omeprazole [PriLOSEC] 20 mg PO AC-BID 30 Days #60 cap 10/01/20 Allergies Allergy/AdvReac Type Severity Reaction Status Date / Time quetiapine [From Seroquel] Allergy Unknown Verified 10/01/20 17:20 Review of Systems ROS Statement: Those systems with pertinent positive or pertinent negative responses have been documented in the HPI. ROS Other: All systems not noted in ROS Statement are negative. Past Medical History Past Medical History: Chest Pain / Angina Additional Past Medical History / Comment(s): Chest Pain but was cleared by cardiology. UTI history History of Any Multi-Drug Resistant Organisms: None Reported Past Surgical History: No Surgical Hx Reported Past Anesthesia/Blood Transfusion Reactions: No Reported Reaction Additional Past Anesthesia/Blood Transfusion Reaction / Comment(s): pt states he has never had a blood transfusion or anesthesia Past Psychological History: Anxiety, Bipolar, Depression, PTSD Smoking Status: Current every day smoker Past Alcohol Use History: None Reported Past Drug Use History: Marijuana General Exam Limitations: no limitations General appearance: alert, in no apparent distress Head exam: Present: atraumatic, normocephalic Eye exam: Present: normal appearance, PERRL ENT exam: Present: normal exam Neck exam: Present: normal inspection. Absent: tenderness, meningismus Respiratory exam: Present: normal lung sounds bilaterally. Absent: respiratory distress, wheezes Cardiovascular Exam: Present: regular rate, normal rhythm GI/Abdominal exam: Present: soft. Absent: distended, tenderness, guarding Rectal exam: Present: normal inspection. Absent: black stool, bloody stool Extremities exam: Present: normal inspection, normal capillary refill. Absent: pedal edema, calf tenderness Neurological exam: Present: alert, oriented X3, CN II-XII intact. Absent: motor sensory deficit Psychiatric exam: Present: anxious Skin exam: Present: warm, dry, intact. Absent: cyanosis, diaphoretic Course Vital Signs 10/01/20 15:21 Temperature 97.7 F Pulse Rate 91 Respiratory 20 Rate Blood Pressure 118/79 O2 Sat by Pulse 97 Oximetry EKG Findings - EKG Comments: EKG Findings:: EKG: Normal sinus rhythm, rate of 94, AL interval 146, QRS duration 90, QTC 422, no ST segment elevation. Medical Decision Making - Medical Decision Making 40-year-old male with some lightheadedness, dizziness. Patient well-appearing with stable vitals. He is a nonfocal neurologic exam. He did report some dark stool. He exam was negative for bright red rectal bleeding or aide melanotic stool however the Hemoccult was positive. Hemoglobin is stable at 16. As a mild leukocytosis 11.2. Otherwise laboratory testing is unremarkable. Chest x- ray is clear. He is feeling better after hydration. He will take proton pump inhibitor and will monitor his stool. He will return with worsening or changing symptoms. PT given strict return parameters. He is also given a referral to GI. He will follow with his primary care physician on Sunday. - Lab Data Result diagrams: 10/01/20 15:55 10/01/20 15:55 Lab Results 10/01/20 10/01/2021 Range/Units 15:55 15:55 15:55 WBC 11.2 H (3.8-10.6) k/uL RBC 5.56 (4.30-5.90) m/uL Hgb 16.4 (13.0-17.5) gm/dL Hct 47.6 (39.0-53.0) % MCV 85.7 (80.0-100.0) fL MCH 29.6 (25.0-35.0) pg MCHC 34.5 (31.0-37.0) g/dL RDW 13.3 (11.5-15.5) % Plt Count 306 (150-450) k/uL MPV 7.4 Neutrophils % 67 % Lymphocytes % 23 % Monocytes % 6 % Eosinophils % 2 % Basophils % 1 % Neutrophils # 7.4 (1.3-7.7) k/uL Lymphocytes # 2.6 (1.0-4.8) k/uL Monocytes # 0.7 (0-1.0) k/uL Eosinophils # 0.2 (0-0.7) k/uL Basophils # 0.1 (0-0.2) k/uL PT 9.6 (9.0-12.0) sec INR 0.9 (<1.2) APTT 23.0 (22.0-30.0) sec Sodium 136 L (137-145) mmol/L Potassium 4.5 (3.5-5.1) mmol/L Chloride 105 (98-107) mmol/L Carbon Dioxide 23 (22-30) mmol/L Anion Gap 8 mmol/L BUN 14 (9-20) mg/dL Creatinine 0.88 (0.66-1.25) mg/dL Est GFR (CKD-EPI)AfAm >90 (>60 ml/min/1.73 sqM) Est GFR (CKD-EPI)NonAf >90 (>60 ml/min/1.73 sqM) Glucose 121 H (74-99) mg/dL Calcium 9.3 (8.4-10.2) mg/dL Magnesium 2.1 (1.6-2.3) mg/dL Total Bilirubin 0.6 (0.2-1.3) mg/dL AST 40 (17-59) U/L ALT 36 (4-49) U/L Alkaline Phosphatase 92 (38-126) U/L Troponin I (0.000-0.034) ng/mL Total Protein 6.7 (6.3-8.2) g/dL Albumin 3.9 (3.5-5.0) g/dL Urine Color Urine Appearance (Clear) Urine pH (5.0-8.0) Ur Specific [place] (1.001-1.035) Urine Protein (Negative) Urine Glucose (UA) (Negative) Urine Ketones (Negative) Urine Blood (Negative) Urine Nitrite (Negative) Urine Bilirubin (Negative) Urine Urobilinogen (<2.0) mg/dL Ur Leukocyte Esterase (Negative) Urine RBC (0-5) /hpf Urine WBC (0-5) /hpf Ur Squamous Epith Cells (0-4) /hpf Urine Bacteria (None) /hpf Urine Mucus (None) /hpf Stool Occult Blood (Negative) Blood Type Blood Type Confirm Blood Type Recheck Bld Type Recheck Status Antibody Screen Spec Expiration Date 10/01/20 10/01/20 10/01/20 Range/Units 15:55 15:55 15:55 WBC (3.8-10.6) k/uL RBC (4.30-5.90) m/uL Hgb (13.0-17.5) gm/dL Hct (39.0-53.0) % MCV (80.0-100.0) fL MCH (25.0-35.0) pg MCHC (31.0-37.0) g/dL RDW (11.5-15.5) % Plt Count (150-450) k/uL MPV Neutrophils % % Lymphocytes % % Monocytes % % Eosinophils % % Basophils % % Neutrophils # (1.3-7.7) k/uL Lymphocytes # (1.0-4.8) k/uL Monocytes # (0-1.0) k/uL Eosinophils # (0-0.7) k/uL Basophils # (0-0.2) k/uL PT (9.0-12.0) sec INR (<1.2) APTT (22.0-30.0) sec Sodium (137-145) mmol/L Potassium (3.5-5.1) mmol/L Chloride (98-107) mmol/L Carbon Dioxide (22-30) mmol/L Anion Gap mmol/L BUN (9-20) mg/dL Creatinine (0.66-1.25) mg/dL Est GFR (CKD-EPI)AfAm (>60 ml/min/1.73 sqM) Est GFR (CKD-EPI)NonAf (>60 ml/min/1.73 sqM) Glucose (74-99) mg/dL Calcium (8.4-10.2) mg/dL Magnesium (1.6-2.3) mg/dL Total Bilirubin (0.2-1.3) mg/dL AST (17-59) U/L ALT (4-49) U/L Alkaline Phosphatase (38-126) U/L Troponin I <0.012 (0.000-0.034) ng/mL Total Protein (6.3-8.2) g/dL Albumin (3.5-5.0) g/dL Urine Color Urine Appearance (Clear) Urine pH (5.0-8.0) Ur Specific [place] (1.001-1.035) Urine Protein (Negative) Urine Glucose (UA) (Negative) Urine Ketones (Negative) Urine Blood (Negative) Urine Nitrite (Negative) Urine Bilirubin (Negative) Urine Urobilinogen (<2.0) mg/dL Ur Leukocyte Esterase (Negative) Urine RBC (0-5) /hpf Urine WBC (0-5) /hpf Ur Squamous Epith Cells (0-4) /hpf Urine Bacteria (None) /hpf Urine Mucus (None) /hpf Stool Occult Blood Positive (Negative) Blood Type B Positive Blood Type Confirm Blood Type Recheck No Previous Record Bld Type Recheck Status CABO Indicated Antibody Screen NEGATIVE Spec Expiration Date 10/04/2020235410/01/20 10/01/20 Range/Units 15:55 16:06 WBC (3.8-10.6) k/uL RBC (4.30-5.90) m/uL Hgb (13.0-17.5) gm/dL Hct (39.0-53.0) % MCV (80.0-100.0) fL MCH (25.0-35.0) pg MCHC (31.0-37.0) g/dL RDW (11.5-15.5) % Plt Count (150-450) k/uL MPV Neutrophils % % Lymphocytes % % Monocytes % % Eosinophils % % Basophils % % Neutrophils # (1.3-7.7) k/uL Lymphocytes # (1.0-4.8) k/uL Monocytes # (0-1.0) k/uL Eosinophils # (0-0.7) k/uL Basophils # (0-0.2) k/uL PT (9.0-12.0) sec INR (<1.2) APTT (22.0-30.0) sec Sodium (137-145) mmol/L Potassium (3.5-5.1) mmol/L Chloride (98-107) mmol/L Carbon Dioxide (22-30) mmol/L Anion Gap mmol/L BUN (9-20) mg/dL Creatinine (0.66-1.25) mg/dL Est GFR (CKD-EPI)AfAm (>60 ml/min/1.73 sqM) Est GFR (CKD-EPI)NonAf (>60 ml/min/1.73 sqM) Glucose (74-99) mg/dL Calcium (8.4-10.2) mg/dL Magnesium (1.6-2.3) mg/dL Total Bilirubin (0.2-1.3) mg/dL AST (17-59) U/L ALT (4-49) U/L Alkaline Phosphatase (38-126) U/L Troponin I (0.000-0.034) ng/mL Total Protein (6.3-8.2) g/dL Albumin (3.5-5.0) g/dL Urine Color Yellow Urine Appearance Clear (Clear) Urine pH 5.5 (5.0-8.0) Ur Specific [place] 1.030 (1.001-1.035) Urine Protein Trace H (Negative) Urine Glucose (UA) Negative (Negative) Urine Ketones Negative (Negative) Urine Blood Negative (Negative) Urine Nitrite Negative (Negative) Urine Bilirubin Negative (Negative) Urine Urobilinogen 2.0 (<2.0) mg/dL Ur Leukocyte Esterase Trace H (Negative) Urine RBC 2 (0-5) /hpf Urine WBC 6 H (0-5) /hpf Ur Squamous Epith Cells <1 (0-4) /hpf Urine Bacteria Rare H (None) /hpf Urine Mucus Moderate H (None) /hpf Stool Occult Blood (Negative) Blood Type Blood Type Confirm B Positive Blood Type Recheck Bld Type Recheck Status Antibody Screen Spec Expiration Date Disposition Clinical Impression: Dehydration Disposition: HOME SELF-CARE Condition: Fair Instructions (If sedation given, give patient instructions): Dizziness (ED), Gastrointestinal Bleeding (ED) Prescriptions: Omeprazole [PriLOSEC] 20 mg PO AC-BID 30 Days #60 cap Is patient prescribed a controlled substance at d/c from ED?: No [facility] [Primary Care Provider] - 1-2 days Izabel Dickson MD [STAFF PHYSICIAN] - 1-2 days Time of Disposition: 17:27
[2020-10-01 17:44] VITALS: BP 118/73; PULSE 89; RESP 18; TEMP 97.9
== END 2020-10-01 17:40 | disposition home or self-care (01) ==
LOC: EC 15:20
DX: E86.0 Dehydration (principal); R12 Heartburn; F31.9 Bipolar disorder, unspecified; F41.9 Anxiety disorder, unspecified; F17.200 Nicotine dependence, unspecified, uncomplicated; F12.90 Cannabis use, unspecified, uncomplicated; Z87.440 Personal history of urinary (tract) infections; Z79.899 Other long term (current) drug therapy
CPT/HCPCS: 36415; 71046; 80053; 81001; 82272; 83735; 84484; 85025; 85610; 85730; 86850; 86900; 86901; 93005; 96361; 96374; 99284

== ENCOUNTER 2020-11-16 14:39 | Emergency (ER) | payer MEDICARE, OTHER ==
[2020-11-16 15:18] VITALS: BP 117/81; PULSE 107; RESP 20; TEMP 98.6
--- NOTE | 2020-11-16 16:17 | ED ---
Recheck HPI - General Chief Complaint: Recheck/Abnormal Lab/Rx Stated Complaint: ENT Time Seen by Provider: 11/16/20 15:33 Source: patient Mode of arrival: ambulatory Limitations: no limitations - History of Present Illness Initial Comments: Patient is a 40-year-old male presenting to the emergency department requesting Covid testing. He states that he is going to see his child tomorrow and discuss wants to make sure he is not sick. He has no symptoms or complaints today. No recent fevers or chills or cough or congestion. He has no symptoms and no other complaints today. - Related Data Home Medications Medication Instructions Recorded Confirmed Cholecalciferol [Vitamin D3 (25 125 mcg PO DAILY 10/01/20 10/01/20 Mcg = 1000 Iu)] Fluticasone Nasal [place] [Flonase 1 spr EA NOSTRIL DAILY PRN 10/01/20 10/01/20 Nasal [place]] Imipramine HCl [Tofranil] 50 mg PO DAILY 10/01/20 10/01/20 busPIRone HCL [Buspar] 30 mg PO DAILY 10/01/20 10/01/20 Previous Rx's Medication Instructions Recorded ARIPiprazole [Abilify] 20 mg PO DAILY 30 Days tab 05/03/20 Cyanocobalamin [Vitamin B-12] 1,000 mcg PO DAILY 30 Days tab 05/03/20 hydrOXYzine pamoate [Vistaril] 25 mg PO BID PRN 30 Days cap 05/03/20 Omeprazole [PriLOSEC] 20 mg PO AC-BID 30 Days #60 cap 10/01/20 Allergies Allergy/AdvReac Type Severity Reaction Status Date / Time quetiapine [From Seroquel] Allergy Unknown Verified 10/01/20 17:20 Review of Systems ROS Statement: Those systems with pertinent positive or pertinent negative responses have been documented in the HPI. ROS Other: All systems not noted in ROS Statement are negative. Past Medical History Past Medical History: Chest Pain / Angina Additional Past Medical History / Comment(s): Chest Pain but was cleared by cardiology. UTI history History of Any Multi-Drug Resistant Organisms: None Reported Past Surgical History: No Surgical Hx Reported Past Anesthesia/Blood Transfusion Reactions: No Reported Reaction Additional Past Anesthesia/Blood Transfusion Reaction / Comment(s): pt states he has never had a blood transfusion or anesthesia Past Psychological History: Anxiety, Bipolar, Depression, PTSD Smoking Status: Current every day smoker Past Alcohol Use History: None Reported Past Drug Use History: Marijuana General Exam - General Exam Comments Initial Comments: GENERAL: Patient is well-developed and well-nourished. Patient is nontoxic and in no acute distress. HEAD: Atraumatic, normocephalic. EYES: Pupils equal round and reactive to light, extraocular movements intact, sclera anicteric, conjunctiva are normal. Eyelids were unremarkable. ENT: Nares patent, oropharynx clear without exudates. Moist mucous membranes. NECK: Normal range of motion, supple without lymphadenopathy or JVD. LUNGS: Unlabored respirations. Breath sounds clear to auscultation bilaterally and equal. No wheezes rales or rhonchi. HEART: Regular rate and rhythm without murmurs, rubs or gallops. ABDOMEN: Soft, nontender, normoactive bowel sounds. No guarding, no rebound. No masses appreciated. : Deferred MUSCULOSKELETAL: Normal extremities with adequate strength and normal range of motion, no pitting or edema. No clubbing or cyanosis. SKIN: Warm, Dry, normal turgor, no rashes or lesions noted. Limitations: no limitations Course Vital Signs 11/16/20 15:16 Temperature 98.6 F Pulse Rate 107 H Respiratory 20 Rate Blood Pressure 117/81 O2 Sat by Pulse 96 Oximetry Medical Decision Making - Medical Decision Making He is a 40-year-old male here requesting Covid testing. He will see his child tomorrow just wants to make sure he is not positive. No symptoms, no complaints, exam is normal. Covid test is negative. He is stable for discharge. - Lab Data Lab Results 11/16/20 Range/Units 15:20 Coronavirus (PCR) Not Detected (Not Detectd) Disposition Clinical Impression: Lab test negative for COVID-19 virus Disposition: HOME SELF-CARE Condition: Stable Instructions (If sedation given, give patient instructions): Normal Exam (ED) Additional Instructions: Please return to the Emergency Department if symptoms worsen or any other concerns. Covid test is negative. Is patient prescribed a controlled substance at d/c from ED?: No Referrals: [facility] [Primary Care Provider] - 1-2 days Time of Disposition: 16:17
== END 2020-11-16 16:45 | disposition home or self-care (01) ==
LOC: EC 14:39
DX: Z20.822 Contact with and (suspected) exposure to COVID-19 (principal); F41.9 Anxiety disorder, unspecified; F31.9 Bipolar disorder, unspecified; F17.200 Nicotine dependence, unspecified, uncomplicated; F12.90 Cannabis use, unspecified, uncomplicated; Z87.440 Personal history of urinary (tract) infections
CPT/HCPCS: 87635; 99282

== ENCOUNTER 2020-12-19 05:08 | Emergency (ER) | payer MEDICARE, OTHER ==
[2020-12-19 05:31] VITALS: TEMP 98.4
--- NOTE | 2020-12-19 07:13 | CT ---
EXAMINATION TYPE: CT brain wo con DATE OF EXAM: 12/19/2020 COMPARISON: 24/04/2020 HISTORY: Blurred vision with increased anxiety TECHNIQUE: CT scan of the without contrast CT DLP: 1202.4 mGycm Automated exposure control for dose reduction was used. FINDINGS: Suboptimal evaluation due to streak artifact. Areas of symmetric streaky decreased low attenuation in the cerebellum are again demonstrated and could be related to streak artifact. Intracranial hemorrhage, midline shift or mass effect. The fitzgerald-white matter differentiation is pres erved. The ventricles and CSF spaces are normal in configuration. The paranasal sinuses and mastoid a ir cells are aerated. No acute orbital, osseous or soft tissue abnormality seen. Mild leftward nasal septal deviation noted. IMPRESSION: 1. AREAS OF SYMMETRIC LOW-ATTENUATION IN THE CEREBELLUM ARE AGAIN DEMONSTRATED AND ARE PROBABLY RELAT ED TO ARTIFACT. CLINICAL RELATION RECOMMENDED. 2. NO ACUTE INTRACRANIAL HEMORRHAGE, MIDLINE SHIFT OR MASS EFFECT.
--- NOTE | 2020-12-19 07:36 | ED ---
Eye Problem HPI - General Chief complaint: Eye Problems Stated complaint: Mental Health, Vision Problems Time Seen by Provider: 12/19/20 06:15 Source: patient, RN notes reviewed Mode of arrival: ambulatory Limitations: no limitations - History of Present Illness Initial comments: Patient is a 40-year-old male with history of anxiety, presenting to the mergency Department with complaints of some vision difficulties. He states over the past couple months he states it's hard to focus sometimes when he is driving, he feels like the lights are really bright. States this happens when it is light or dark outside. He also has history of migraines and states it feels like his vision sometimes gets worse and then he gets a headache. He has been under a lot of stress lately and feels like this could be contributing as well. He has not had an eye exam in many years. He does wear glasses. He denies any falls or trauma. He denies any dizziness, no nausea or vomiting, no chest pain or shortness of breath. Denies being on blood thinners. Denies any muscle weakness. He denies any eye pain. Patient states that he has also been more anxious secondary to his stress levels. He is currently on 2 medications, he does follow with [facility]. He denies any suicidal or homicidal thoughts today. He states he does not wish to be evaluated for anxiety today. He will follow-up with his counselor. Patient has no further complaints. His vital signs are stable upon arrival. - Related Data Home Medications Medication Instructions Recorded Confirmed Cholecalciferol [Vitamin D3 (25 125 mcg PO DAILY 10/01/20 10/01/20 Mcg = 1000 Iu)] Fluticasone Nasal [place] [Flonase 1 spr EA NOSTRIL DAILY PRN 10/01/20 10/01/20 Nasal [place]] Imipramine HCl [Tofranil] 50 mg PO DAILY 10/01/20 10/01/20 busPIRone HCL [Buspar] 30 mg PO DAILY 10/01/20 10/01/20 Previous Rx's Medication Instructions Recorded ARIPiprazole [Abilify] 20 mg PO DAILY 30 Days tab 05/03/20 Cyanocobalamin [Vitamin B-12] 1,000 mcg PO DAILY 30 Days tab 05/03/20 hydrOXYzine pamoate [Vistaril] 25 mg PO BID PRN 30 Days cap 05/03/20 Omeprazole [PriLOSEC] 20 mg PO AC-BID 30 Days #60 cap 10/01/20 Allergies Allergy/AdvReac Type Severity Reaction Status Date / Time quetiapine [From Seroquel] Allergy Unknown Verified 12/19/20 05:31 Review of Systems ROS Statement: Those systems with pertinent positive or pertinent negative responses have been documented in the HPI. ROS Other: All systems not noted in ROS Statement are negative. Past Medical History Past Medical History: Chest Pain / Angina Additional Past Medical History / Comment(s): Chest Pain but was cleared by cardiology. UTI history History of Any Multi-Drug Resistant Organisms: None Reported Past Surgical History: No Surgical Hx Reported Past Anesthesia/Blood Transfusion Reactions: No Reported Reaction Additional Past Anesthesia/Blood Transfusion Reaction / Comment(s): pt states he has never had a blood transfusion or anesthesia Past Psychological History: Anxiety, Bipolar, Depression, PTSD Smoking Status: Current every day smoker Past Alcohol Use History: None Reported Past Drug Use History: Marijuana General Exam - General Exam Comments Initial Comments: GENERAL: Patient is well-developed and well-nourished. Patient is nontoxic and in no acute distress. HEAD: Atraumatic, normocephalic. EYES: Pupils equal round and reactive to light, extraocular movements intact, sclera anicteric, conjunctiva are normal. Eyelids were unremarkable. Bilateral eye pressures are normal at 15 in R and 17 in L. Visual acuity is low however patient does not have his glasses with him. ENT: Nares patent, oropharynx clear without exudates. Moist mucous membranes. NECK: Normal range of motion, supple without lymphadenopathy or JVD. LUNGS: Unlabored respirations. Breath sounds clear to auscultation bilaterally and equal. No wheezes rales or rhonchi. HEART: Regular rate and rhythm without murmurs, rubs or gallops. ABDOMEN: Soft, nontender, normoactive bowel sounds. MUSCULOSKELETAL: Normal extremities with adequate strength and normal range of motion, no pitting or edema. No clubbing or cyanosis. NEUROLOGICAL: Patient is alert and oriented x 3. Motor and sensory are also intact. Cranial nerves II through XII grossly intact. Symmetrical smile. Normal speech, normal gait. PSYCH: Normal mood, normal affect. SKIN: Warm, Dry, normal turgor, no rashes or lesions noted. Course Vital Signs 12/19/20 05:25 Temperature 98.4 F Pulse Rate 99 Respiratory 19 Rate Blood Pressure 138/72 O2 Sat by Pulse 97 Oximetry Medical Decision Making - Medical Decision Making Patient is a 40-year-old male presenting with changes in his vision over the past couple months. 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 He does wear glasses, did not have them with him today. He has not had an exam in many years. His exam today is unremarkable, no acute findings. I did do a CT of his head secondary to the headaches and vision changes, this shows no acute abnormality. I discussed these findings with him. I recommended following up with his eye doctor. He is agreeable to this. He will also follow up with [facility] regarding his anxiety. He is stable for discharge. Return parameters were discussed with him and he verbalized understanding. Case discussed with Dr. Gordon. Disposition Clinical Impression: Vision changes Disposition: HOME SELF-CARE Condition: Stable Instructions (If sedation given, give patient instructions): Blurred Vision (ED) Additional Instructions: Please return to the Emergency Department if symptoms worsen or any other concerns. Please follow up with your eye doctor for an eye exam, as well as [facility] regarding anxiety. Is patient prescribed a controlled substance at d/c from ED?: No Referrals: [facility] [Primary Care Provider] - 1-2 days Time of Disposition: 07:35
[2020-12-19 08:08] VITALS: BP 123/85; PULSE 84; RESP 18
== END 2020-12-19 08:07 | disposition home or self-care (01) ==
LOC: EC 05:08
DX: H53.8 Other visual disturbances (principal); F31.9 Bipolar disorder, unspecified; F41.9 Anxiety disorder, unspecified; Z79.899 Other long term (current) drug therapy; F17.200 Nicotine dependence, unspecified, uncomplicated
CPT/HCPCS: 70450; 99283

== ENCOUNTER 2021-01-18 15:24 | Observation (INO) | payer MEDICARE, OTHER ==
[2021-01-18] MEDS ORDERED: NITROGLYCERIN OINT 1 INCH/GM PACKET TOPICAL STA (18:14)
[2021-01-18] MEDS ORDERED: ASPIRIN 81 MG PO STA (18:14)
[2021-01-18] MEDS ORDERED: ALBUTEROL HFA INHALER INHALATION STA (18:15)
--- NOTE | 2021-01-18 18:18 | ED ---
General Adult HPI - General Chief complaint: Chest Pain Stated complaint: chest pain Time Seen by Provider: 01/18/21 18:00 Source: patient, EMS, RN notes reviewed Mode of arrival: EMS Limitations: no limitations - History of Present Illness Initial comments: Patient is a pleasant 40-year-old male presenting to the emergency department with concerns for chest discomfort. Onset of symptoms was prior to arrival. Discomfort was sharp and lasts around 15 minutes. No radiation. Patient had mild nausea. Patient felt sweaty. Patient has developed some shortness of breath since this episode. Patient did have a mild cough over this past weekend. No fever. No leg pain or leg swelling. - Related Data Home Medications Medication Instructions Recorded Confirmed Imipramine HCl [Tofranil] 50 mg PO DAILY 10/01/20 01/18/21 busPIRone HCL 15 mg PO DAILY 01/18/21 01/18/21 Previous Rx's Medication Instructions Recorded ARIPiprazole [Abilify] 20 mg PO DAILY 30 Days tab 05/03/20 Allergies Allergy/AdvReac Type Severity Reaction Status Date / Time quetiapine [From Seroquel] Allergy Unknown Verified 01/18/21 19:35 Review of Systems ROS Statement: Those systems with pertinent positive or pertinent negative responses have been documented in the HPI. ROS Other: All systems not noted in ROS Statement are negative. Constitutional: Denies: fever Eyes: Denies: eye pain ENT: Denies: ear pain Respiratory: Reports: as per HPI, cough, dyspnea Cardiovascular: Reports: chest pain Endocrine: Denies: fatigue Gastrointestinal: Denies: abdominal pain Genitourinary: Denies: urgency Musculoskeletal: Denies: back pain Skin: Denies: rash Neurological: Denies: weakness Past Medical History Past Medical History: Chest Pain / Angina Additional Past Medical History / Comment(s): Chest Pain but was cleared by cardiology. UTI history History of Any Multi-Drug Resistant Organisms: None Reported Past Surgical History: No Surgical Hx Reported Past Anesthesia/Blood Transfusion Reactions: No Reported Reaction Additional Past Anesthesia/Blood Transfusion Reaction / Comment(s): pt states he has never had a blood transfusion or anesthesia Past Psychological History: Anxiety, Bipolar, Depression, PTSD Smoking Status: Current every day smoker Past Alcohol Use History: None Reported Past Drug Use History: Marijuana General Exam Limitations: no limitations General appearance: alert, in no apparent distress Head exam: Present: normocephalic Eye exam: Present: normal appearance ENT exam: Present: normal oropharynx Neck exam: Present: normal inspection Respiratory exam: Present: normal lung sounds bilaterally. Absent: chest wall tenderness Cardiovascular Exam: Present: regular rate, normal rhythm, normal heart sounds Expanded Peripheral pulses: 2+: Radial (R), Radial (L), Posterior Tibialis (R), Posterior Tibialis (L) GI/Abdominal exam: Present: soft. Absent: tenderness Extremities exam: Present: normal inspection. Absent: pedal edema, calf te nderness Neurological exam: Present: alert Psychiatric exam: Present: normal affect, normal mood Skin exam: Present: normal color Course Vital Signs 01/18/21 01/18/21 15:28 18:34 Temperature 97.3 F L Pulse Rate 110 H 86 Respiratory 18 18 Rate Blood Pressure 118/76 119/70 O2 Sat by Pulse 100 96 Oximetry EKG Findings - EKG Comments: EKG Findings:: Sinus tachycardia with rate of 11. ID 142. QRS 88. QT 320. QTc 414. Normal axis. Normal QRS. No acute ST change. Medical Decision Making - Medical Decision Making Patient reevaluated and resting complain bed. Patient updated on results and plan. Case was discussed with Dr. Cazares, who will admit covering for the [facility]'s clinic. - Lab Data Result diagrams: 01/18/21 18:25 01/18/21 18:25 Lab Results 01/18/21 01/18/21 01/18/21 Range/Units 18:25 18:25 18:25 WBC 10.5 (3.8-10.6) k/uL RBC 5.85 (4.30-5.90) m/uL Hgb 17.0 (13.0-17.5) gm/dL Hct 50.4 (39.0-53.0) % MCV 86.2 (80.0-100.0) fL MCH 29.0 (25.0-35.0) pg MCHC 33.6 (31.0-37.0) g/dL RDW 13.1 (11.5-15.5) % Plt Count 369 (150-450) k/uL MPV 7.2 Neutrophils % 60 % Lymphocytes % 29 % Monocytes % 6 % Eosinophils % 2 % Basophils % 1 % Neutrophils # 6.4 (1.3-7.7) k/uL Lymphocytes # 3.0 (1.0-4.8) k/uL Monocytes # 0.6 (0-1.0) k/uL Eosinophils # 0.2 (0-0.7) k/uL Basophils # 0.1 (0-0.2) k/uL PT 9.7 (9.0-12.0) sec INR 0.9 (<1.2) APTT 20.3 L (22.0-30.0) sec D-Dimer 0.22 (<0.60) mg/L FEU Sodium 135 L (137-145) mmol/L Potassium 4.6 (3.5-5.1) mmol/L Chloride 104 (98-107) mmol/L Carbon Dioxide 22 (22-30) mmol/L Anion Gap 9 mmol/L BUN 14 (9-20) mg/dL Creatinine 0.84 (0.66-1.25) mg/dL Est GFR (CKD-EPI)AfAm >90 (>60 ml/min/1.73 sqM) Est GFR (CKD-EPI)NonAf >90 (>60 ml/min/1.73 sqM) Glucose 123 H (74-99) mg/dL Calcium 9.4 (8.4-10.2) mg/dL Magnesium 2.1 (1.6-2.3) mg/dL Total Bilirubin 0.5 (0.2-1.3) mg/dL AST 38 (17-59) U/L ALT 30 (4-49) U/L Alkaline Phosphatase 94 (38-126) U/L Troponin I (0.000-0.034) ng/mL NT-Pro-B Natriuret Pep pg/mL Total Protein 7.4 (6.3-8.2) g/dL Albumin 4.2 (3.5-5.0) g/dL Coronavirus (PCR) (Not Detectd) 01/18/21 01/18/21 01/18/21 Range/Units 18:25 18:25 18:25 WBC (3.8-10.6) k/uL RBC (4.30-5.90) m/uL Hgb (13.0-17.5) gm/dL Hct (39.0-53.0) % MCV (80.0-100.0) fL MCH (25.0-35.0) pg MCHC (31.0-37.0) g/dL RDW (11.5-15.5) % Plt Count (150-450) k/uL MPV Neutrophils % % Lymphocytes % % Monocytes % % Eosinophils % % Basophils % % Neutrophils # (1.3-7.7) k/uL Lymphocytes # (1.0-4.8) k/uL Monocytes # (0-1.0) k/uL Eosinophils # (0-0.7) k/uL Basophils # (0-0.2) k/uL PT (9.0-12.0) sec INR (<1.2) APTT (22.0-30.0) sec D-Dimer (<0.60) mg/L FEU Sodium (137-145) mmol/L Potassium (3.5-5.1) mmol/L Chloride (98-107) mmol/L Carbon Dioxide (22-30) mmol/L Anion Gap mmol/L BUN (9-20) mg/dL Creatinine (0.66-1.25) mg/dL Est GFR (CKD-EPI)AfAm (>60 ml/min/1.73 sqM) Est GFR (CKD-EPI)NonAf (>60 ml/min/1.73 sqM) Glucose (74-99) mg/dL Calcium (8.4-10.2) mg/dL Magnesium (1.6-2.3) mg/dL Total Bilirubin (0.2-1.3) mg/dL AST (17-59) U/L ALT (4-49) U/L Alkaline Phosphatase (38-126) U/L Troponin I 0.017 (0.000-0.034) ng/mL NT-Pro-B Natriuret Pep 18 pg/mL Total Protein (6.3-8.2) g/dL Albumin (3.5-5.0) g/dL Coronavirus (PCR) Not Detected (Not Detectd) - Radiology Data Radiology results: image reviewed (Chest x-ray shows no acute process) Disposition Clinical Impression: Chest pain Disposition: ADMITTED IP TO THIS [facility] Is patient prescribed a controlled substance at d/c from ED?: No Referrals: [facility] [Primary Care Provider] - 1-2 days Decision Time: 20:38
[2021-01-18 18:34] LABS: Basophils # (A) 0.1 k/uL (0-0.2); Basophils % (A) 1 %; Eosinophils # (A) 0.2 k/uL (0-0.7); Eosinophils % (A) 2 %; HCT 50.4 % (39.0-53.0); Lymphocytes % (A) 29 %; MCHC 33.6 g/dL (31.0-37.0); MCV 86.2 fL (80.0-100.0); Mean Platelet Volume 7.2; Monocytes # (A) 0.6 k/uL (0-1.0); Monocytes % (A) 6 %; Neutrophils # (A) 6.4 k/uL (1.3-7.7); Neutrophils % (A) 60 %; Platelet Count 369 k/uL (150-450); RBC 5.85 m/uL (4.30-5.90); RDW 13.1 % (11.5-15.5); WBC 10.5 k/uL (3.8-10.6)
[2021-01-18 18:43] LABS: ALT 30 U/L (4-49); AST 38 U/L (17-59); African American GFR (CKD) >90 (>60 ml/min/1.73 sqM); Albumin 4.2 g/dL (3.5-5.0); Alkaline Phosphatase 94 U/L (38-126); Anion Gap 9 mmol/L; Blood Urea Nitrogen 14 mg/dL (9-20); Calcium 9.4 mg/dL (8.4-10.2); Carbon Dioxide 22 mmol/L (22-30); Chloride 104 mmol/L (98-107); Glucose 123 mg/dL (74-99); Magnesium 2.1 mg/dL (1.6-2.3); Non-African American GFR(CKD) >90 (>60 ml/min/1.73 sqM); Sodium 135 mmol/L (137-145); Total Bilirubin 0.5 mg/dL (0.2-1.3); Total Protein 7.4 g/dL (6.3-8.2)
[2021-01-18 19:03] LABS: Potassium 4.6 mmol/L (3.5-5.1)
[2021-01-18 19:13] LABS: INR 0.9 (<1.2); Partial Thromboplastin Time 20.3 sec (22.0-30.0); Prothrombin Time 9.7 sec (9.0-12.0)
--- NOTE | 2021-01-18 19:35 | XR ---
EXAMINATION TYPE: XR chest 2V DATE OF EXAM: 01/18/2021 CLINICAL HISTORY: Chest Pain. TECHNIQUE: Frontal and lateral view of the chest. COMPARISON: 10/01/2020 FINDINGS: Redemonstrated elevation of the right hemidiaphragm. The cardiomediastinal silhouette is w ithin normal limits for size. Pulmonary vasculature is normal. There is no acute focal air space opac ity. No pleural effusion. No pneumothorax seen. No acute displaced osseous fracture. IMPRESSION: No acute cardiopulmonary process.
[2021-01-18] MEDS ORDERED: NITROGLYCERIN SL TABS 0.4 MG TAB SUBLINGUAL PRN (20:38)
[2021-01-19] MEDS: NITROGLYCERIN OINT 1 INCH/GM PACKET TOPICAL SCH ×2 (02:52→06:34)
[2021-01-19] MEDS ORDERED: ASPIRIN 81 MG PO SCH (09:00)
[2021-01-19] MEDS ORDERED: ASPIRIN 325 MG TAB PO SCH (09:00)
[2021-01-19 09:49] LABS: Chol/HDL Ratio 4.16 Ratio; LDL Cholesterol,Calculated 67.8 mg/dL (0.0-131.0)
--- NOTE | 2021-01-19 10:06 | P.CRDCN ---
History of Present Illness Consult date: 01/19/21 History of present illness: HISTORY OF PRESENT ILLNESS: This is a 40-year-old male with a past medical history significant for depression. Patient does not follow with a tree scout. We have been asked to see the patient in consultation for chest pain. Patient examined at the bedside. Patient states yesterday he was at home doing laundry and shortly afterwards he began having chest discomfort. He describes the pain as a sharp pain in the middle of his chest. He denies any radiation of the pain. Patient states he took some Tylenol which did improve his pain. He reports the pain was worse with palpation of the chest wall. Patient received some Nitropaste in the emergency room which relieved his pain. The patient did undergo a cardiac catheterization in 2018. He states that his symptoms feel similar to that episode. At the time of examination, the patient is currently denying chest pain. He does report having a headache. The patient is a current cigarette smoker. He also uses marijuana occasionally. He denies alcohol use. He denies a family history of coronary artery disease. EKG reveals sinus tachycardia with early repolarization. No signs of acute ischemia. Chest xray negative for acute process Laboratory data: WBC 10.5. Hemoglobin 17.0. Platelet count 369. D-dimer 0.22. Sodium 135. Potassium 4.6. BUN 14. Creatinine 0.84. Magnesium 2.1. Troponin negative 3. Current home cardiac medications include none Patient underwent a catheterization in [place] [address] Winters revealing normal coronary arteries. Normal left ventricular end-diastolic pressure. Medical management was recommended. REVIEW OF SYSTEMS: At the time of my exam: CONSTITUTIONAL: Denies fever or chills. HEENT: Denies blurred vision, vision changes, or eye pain. Denies hemoptysis CARDIOVASCULAR: Denies chest pain. Denies orthopnea. Denies PND. Denies palpitations RESPIRATORY: Denies shortness of breath. GASTROINTESTINAL: Denies abdominal pain. Denies nausea or vomiting. HEMATOLOGIC: Denies bleeding disorders. GENITOURINARY: Denies any blood in urine. SKIN: Denies pruitis. Denies rash. PHYSICAL EXAM: VITAL SIGNS: Reviewed. GENERAL: Well-developed in no acute distress. HEENT: Head is normocephalic. Pupils are equal, round. Sclerae anicteric. Mucous membranes of the mouth are moist. Neck supple. No JVD or thyromegaly LUNGS: Respirations even and unlabored. Lungs essentially clear to auscultation bilaterally. HEART: Regular rate and rhythm. S1 and S2 heard. ABDOMEN: Soft. Nondistended. Nontender. EXTREMITIES: Normal range of motion. No clubbing or cyanosis. Peripheral pulses intact. No lower extremity edema NEUROLOGIC: Awake and alert. Oriented x 3. ASSESSMENT: Chest pain, troponins negative 3 Depression Nicotine dependence Marijuana use PLAN: An acute coronary event has been ruled out Obtain 2-D echo to assess cardiac structure and function Smoking cessation encouraged Abstinence from marijuana recommended Patient to undergo stress echocardiogram today to assess for reversible ischemia Further recommendations pending patient's course Nurse practitioner note has been reviewed by physician. Signing provider agrees with the documented findings, assessment, and plan of care. Past Medical History Past Medical History: Chest Pain / Angina Additional Past Medical History / Comment(s): Chest Pain but was cleared by cardiology. UTI history History of Any Multi-Drug Resistant Organisms: None Reported Past Surgical History: No Surgical Hx Reported Past Anesthesia/Blood Transfusion Reactions: No Reported Reaction Additional Past Anesthesia/Blood Transfusion Reaction / Comment(s): pt states he has never had a blood transfusion or anesthesia Past Psychological History: Anxiety, Bipolar, Depression, PTSD Smoking Status: Current every day smoker Past Alcohol Use History: None Reported Past Drug Use History: Marijuana Medications and Allergies Home Medications Medication Instructions Recorded Confirmed Type ARIPiprazole [Abilify] 20 mg PO DAILY 30 Days tab 05/03/20 01/18/21 Rx Imipramine HCl [Tofranil] 50 mg PO DAILY 10/01/20 01/18/21 History busPIRone HCL 15 mg PO DAILY 01/18/21 01/18/21 History Allergies Allergy/AdvReac Type Severity Reaction Status Date / Time quetiapine [From Seroquel] Allergy Unknown Verified 01/18/21 19:35 Physical Exam Vitals: Vital Signs Temp Pulse Resp BP Pulse Ox 01/19/21 06:07 62 18 98/65 95 01/19/21 00:00 92 16 130/80 97 01/18/21 21:00 94 16 130/73 97 01/18/21 18:34 86 18 119/70 96 01/18/21 15:28 97.3 F L 110 H 18 118/76 100 Intake and Output 01/18/21 01/19/2101/19/21 22:59 06:59 14:59 Other: Weight 122.47 kg Results 01/18/21 18:25 01/18/21 18:25 Cardiac Enzymes 01/18/21 01/18/21 01/18/21 Range/Units 18:25 18:25 23:11 AST 38 (17-59) U/L Troponin I 0.017 <0.012 (0.000-0.034) ng/mL 01/19/21 Range/Units 01:18 AST (17-59) U/L Troponin I <0.012 (0.000-0.034) ng/mL Coagulation 01/18/21 Range/Units 18:25 PT 9.7 (9.0-12.0) sec APTT 20.3 L (22.0-30.0) sec CBC 01/18/21 Range/Units 18:25 WBC 10.5 (3.8-10.6) k/uL RBC 5.85 (4.30-5.90) m/uL Hgb 17.0 (13.0-17.5) gm/dL Hct 50.4 (39.0-53.0) % Plt Count 369 (150-450) k/uL Comprehensive Metabolic Panel 01/18/21 Range/Units 18:25 Sodium 135 L (137-145) mmol/L Potassium 4.6 (3.5-5.1) mmol/L Chloride 104 (98-107) mmol/L Carbon Dioxide 22 (22-30) mmol/L BUN 14 (9-20) mg/dL Creatinine 0.84 (0.66-1.25) mg/dL Glucose 123 H (74-99) mg/dL Calcium 9.4 (8.4-10.2) mg/dL AST 38 (17-59) U/L ALT 30 (4-49) U/L Alkaline Phosphatase 94 (38-126) U/L Total Protein 7.4 (6.3-8.2) g/dL Albumin 4.2 (3.5-5.0) g/dL Current Medications Generic Name Dose Route Start Last Admin Trade Name Freq PRN Reason Stop Dose Admin Aspirin 325 mg 01/19/21 09:00 Aspirin 325 Mg Tab PO DAILY LAZARA Nitroglycerin 0.4 mg 01/18/21 20:38 Nitroglycerin Sl Tabs 0.4 Mg Tab SUBLINGUAL Q5M PRN Chest Pain Nitroglycerin 1 inch 01/19/21 00:00 01/19/21 06:34 Nitroglycerin Oint 1 Inch/Gm Packet TOPICAL Not Given Q6HR LAZARA Intake and Output 01/18/21 01/19/21 01/19/21 22:59 06:59 14:59 Other: Weight 122.47 kg 01/18/21 18:25 01/18/21 18:25
[2021-01-19 10:49] VITALS: BP 120/83; PULSE 97; RESP 20; TEMP 98.4
--- NOTE | 2021-01-19 11:07 | P.STRESS ---
- Stress Test Note Stress Test Results/Findings: Exam Performed: stress echo exercise with con Exam Date: 01/19/21 Reason for Exam: Chest Pain Height: 6 ft 1 in Weight: 122.47 kg Protocol: Amado Stage: 3 Duration of Exercise: 7:43 Resting Heart Rate: 73 Resting Blood Pressure: 137/104 Maximum Achieved Heart Rate: 143 Maximum Achieved Blood Pressure: 200/73 85% PMHR: 151 100% PMHR: 178 METS: 8.9 Technologist Comment: Stress Test Results/Findings: Patient underwent exercise stress echo with a Amado protocol treadmill stress test. Patient exercised into Stage 3 for a total of 7 minutes and 43 seconds reaching a total of 8.9 METS. Patient's maximum heart rate was 143 which represented 80% age-predicted maximum heart rate. Stress EKG portion: At baseline patient's EKG showed normal sinus rhythm, normal axis, minimal J- point elevation in the inferior and lateral leads without significant ST or T wave abnormalities. At peak exercise, EKG showed no significant change from baseline. Stress echo portion: 2-D echocardiogram was performed in the parasternal long, personal short, apical 2 and apical four-chamber views at rest, peak exercise and in recovery. At baseline, echocardiogram showed left ventricular ejection fraction 55-60% without wall motion abnormalities. With peak exercise, echocardiogram shows improvement in left ventricular ejection fraction, increase contractility, decrease in left ventricular end systolic dimension without wall motion abnormalities consistent with a normal response to exercise. Conclusions: 1. Normal EKG and echo response to exercise without evidence of inducible ischemia. 2. Fair exercise capacity. 3. Normal ejection fraction 55-60% 4. Suboptimal stress test given inability to reach 85% maximum predicted heart rate however at level of exercise no inducible ischemia noted.
[2021-01-19] MEDS ORDERED: busPIRone HCl 5 MG TAB PO SCH (11:30)
[2021-01-19] MEDS ORDERED: IMIPRAMINE 25 MG TAB PO SCH (11:30)
--- NOTE | 2021-01-19 11:57 | ECHOF ---
Referral Reason:LV function, chest pain MEASUREMENTS -------- HEIGHT: 180.3 cm WEIGHT: 122.5 kg BP: 137/104 RVIDd: 3.4 cm (< 3.3) IVSd: 1.2 cm (0.6 - 1.1) LVIDd: 5.4 cm (3.9 - 5.3) LVPWd: 1.2 cm (0.6 - 1.1) IVSs: 1.7 cm LVIDs: 3.3 cm LVPWs: 1.5 cm LA Diam: 3.1 cm (2.7 - 3.8) LAESV Index (A-L): 15.15 ml/m Ao Diam: 3.2 cm (2.0 - 3.7) AV Cusp: 2.4 cm (1.5 - 2.6) MV EXCURSION: 18.742 mm (> 18.000) MV EF SLOPE: 155 mm/s (70 - 150) EPSS: 0.5 cm MV E Kee: 0.76 m/s MV DecT: 250 ms MV A Kee: 0.68 m/s MV E/A Ratio: 1.11 FINDINGS -------- Sinus rhythm. This was a technically adequate study. The left ventricular size is normal. There is borderline concentric left ventricular hypertrophy. Overall left ventricular systolic function is normal with, an EF between 60 - 65 %. The right ventricle is mildly enlarged. Normal LA size by volume 22+/-6 ml/m2. The right atrium is normal in size. Interatrial and interventricular septum intact. The aortic valve is trileaflet, and appears structurally normal. No aortic stenosis or regurgitation. The mitral valve is normal. The tricuspid valve appears structurally normal. Unable to estimate RVSP due to inadequate TR jet s pectral doppler profile. Trace/mild (physiologic) pulmonic regurgitation. The aortic root size is normal. Normal inferior vena cava with normal inspiratory collapse consistent with estimated right atrial pre ssure of 5 mmHg. There is no pericardial effusion. CONCLUSIONS -------- 1. The left ventricular size is normal. 2. There is borderline concentric left ventricular hypertrophy. 3. Overall left ventricular systolic function is normal with, an EF between 60 - 65 %. 4. The right ventricle is mildly enlarged. 5. The aortic valve is trileaflet, and appears structurally normal. No aortic stenosis or regurgitati on. 6. Trace/mild (physiologic) pulmonic regurgitation. 7. There is no pericardial effusion. CASE FILLER: Astrid Rabago RDCS
[2021-01-19] MEDS ORDERED: ACETAMINOPHEN TAB 325 MG TAB PO PRN (12:38)
--- NOTE | 2021-01-20 07:55 | P.HPIM ---
History of Present Illness H&P Date: 01/19/21 HISTORY AND PHYSICAL AND DISCHARGE SUMMARY: HISTORY OF PRESENT ILLNESS This is a 40-year-old male patient of [facility] with past medical history of bipolar disorder, generalized anxiety disorder, PTSD,. Patient came into the hospital due to chest pain in the middle of his chest that felt like a knife or needle poking into him. He states he was picking up laundry and the pain started about 2 minutes later. This occurred yesterday and he has had similar but not as severe in the past. He does not follow with a wardrobe specialist but he did have a cardiac catheterization in May [address] Winters that revealed normal coronary arteries.. He denies any radiation of the pain. No nausea or vomiting. EKG was sinus tachycardia with no acute ST changes. Chest x-ray was negative for acute pulmonary process. WBC 10.5, hemoglobin 17, platelet count 369. D-dimer 0.22. Sodium 135, potassium 4.6, BUN 14 and creatinine 0.84. Magnesium 2.1. Troponin negative on 3 draws. Patient was seen in the emergency center waiting for bed on the observation unit, cardiology has evaluated the patient, ordered echocardiogram and stress test. Echocardiogram reveals EF of 60-65%, borderline concentric left ventricular hypertrophy. Stress echo exercise revealed normal findings. Patient was cleared for discharge by cardiology and discharged home in stable condition. REVIEW OF SYSTEMS Constitutional: No fever, no chills, no night sweats. No weight change. No weakness, fatigue or lethargy. No daytime sleepiness. EENT: No headache. No blurred vision or double vision, no loss of vision. No loss of Hearing, no ringing in the ears, no dizziness. No nasal drainage or congestion. No epistaxis. No sore throat. Lungs: No shortness of breath, cough, no sputum production. No wheezing. Cardiovascular: Reported chest pain, no lower extremity edema. No palpitations. No paroxysmal nocturnal dyspnea. No orthopnea. No lightheadedness or dizziness. No syncopal episodes. Abdominal: No abdominal pain. No nausea, vomiting. No diarrhea. No constipation. No bloody or tarry stools. No loss of appetite. Genitourinary: No dysuria, increased frequency, urgency. No urinary retention. Musculoskeletal: No myalgias. No muscle weakness, no gait dysfunction, no frequent falls. No back pain. No neck pain. Integumentary: No wounds, no lesions. No rash or pruritus. No unusual bruising. No change in hair or nails. Neurologic: No aphasia. No facial droop. No change in mentation. No head injury. No headache. No paralysis. No paresthesia. Psychiatric: No depression. No anxiety. No mood swings. Endocrine: No abnormal blood sugars. No weight change. No excessive sweating or thirst. No cold intolerance. SOCIAL HISTORY Patient is a smoker of greater than one pack per day for 25 years and quit 5 years ago. He states he drinks alcohol occasionally. He smokes marijuana on a regular basis. He does not have CPAP or nebulizer. He is . FAMILY HISTORY Mother is alive at age 63 and lives in the [facility]. Father in his 20s and not sure of the cause. Patient is one brother living with no major medical problems. Patient has 2 sisters and one is from suicide and one is alive with no major medical problems. Patient is 2 children with no major medical problems. PHYSICAL EXAMINATION Gen: This is an obese 40-year-old male. He sitting in a stretcher in the emergency center appears to be comfortable and in no acute distress. HEENT: Head is atraumatic, normocephalic. Pupils equal, round. Sclerae is anicteric. NECK: Supple. No JVD. No lymphadenopathy. No thyromegaly. LUNGS: Clear to auscultation. No wheezes or rhonchi. No intercostal retractions. HEART: Regular rate and rhythm. No murmur. ABDOMEN: Soft. Bowel sounds are present. No masses. No tenderness. EXTREMITIES: No pedal edema. No calf tenderness. Dorsalis pedis +2 bilaterally. NEUROLOGICAL: Patient is awake, alert and oriented x3. Cranial nerves 2 through 12 are grossly intact. ASSESSMENT AND PLAN 1. Chest pain most likely musculoskeletal. 2. Bipolar disorder, generalized anxiety, PTSD. 3. History of Tobacco use and dependence. 4. Regular marijuana use. Patient is observation status. DISCHARGE PLAN Home. Impression and plan of care have been directed as dictated by the signing physician. Abril Shay nurse practitioner acting as scribe for signing physician. Past Medical History Past Medical History: Chest Pain / Angina Additional Past Medical History / Comment(s): Chest Pain but was cleared by cardiology. UTI history History of Any Multi-Drug Resistant Organisms: None Reported Past Surgical History: No Surgical Hx Reported Past Anesthesia/Blood Transfusion Reactions: No Reported Reaction Additional Past Anesthesia/Blood Transfusion Reaction / Comment(s): pt states he has never had a blood transfusion or anesthesia Past Psychological History: Anxiety, Bipolar, Depression, PTSD Smoking Status: Current every day smoker Past Alcohol Use History: None Reported Past Drug Use History: Marijuana Medications and Allergies Home Medications Medication Instructions Recorded Confirmed Type ARIPiprazole [Abilify] 20 mg PO DAILY 30 Days tab 05/03/20 01/18/21 Rx Imipramine HCl [Tofranil] 50 mg PO DAILY 10/01/20 01/18/21 History busPIRone HCL 15 mg PO DAILY 01/18/21 01/18/21 History Allergies Allergy/AdvReac Type Severity Reaction Status Date / Time quetiapine [From Seroquel] Allergy Unknown Verified 01/18/21 19:35 Physical Exam Vitals: Vital Signs Temp Pulse Pulse Resp BP BP Pulse Ox 01/19/21 10:45 98.4 F 97 20 120/83 94 L 01/19/21 08:56 68 18 96/68 96 01/19/21 06:07 62 18 98/65 95 01/19/21 00:00 92 16 130/80 97 01/18/21 21:00 94 16 130/73 97 01/18/21 18:34 86 18 119/70 96 01/18/21 15:28 97.3 F L 110 H 18 118/76 100 Intake and Output 01/18/21 01/19/21 01/19/21 22:59 06:59 14:59 Other: Weight 122.47 kg 122.47 kg Results CBC & Chem 7: 01/18/21 18:25 01/18/21 18:25 Labs: Abnormal Lab Results - Last 24 Hours (Table) 01/18/21 01/18/21 01/19/21 Range/Units 18:25 18:25 03:24 APTT 20.3 L (22.0-30.0) sec Sodium 135 L (137-145) mmol/L Glucose 123 H (74-99) mg/dL Triglycerides 208.00 H (0.00-149.00) mg/dL VLDL Cholesterol, Calc 41.60 H (5.00-40.00) mg/dL HDL Cholesterol 34.60 L (40.00-60.00) mg/dL
== END 2021-01-19 14:00 | disposition home or self-care (01) ==
LOC: EC 15:24 → 1SOBS 20:38 → 6NMEDSUR 21:45 → 1SOBS 01-19 08:44
PROVIDERS: ADMIT Internal Medicine Geriatric Medicine; ATTEND Internal Medicine Geriatric Medicine
DX: R07.89 Other chest pain (principal); I51.7 Cardiomegaly; R00.0 Tachycardia, unspecified; R05.9 Cough, unspecified; R11.0 Nausea; R51.9 Headache, unspecified; F41.1 Generalized anxiety disorder; F31.9 Bipolar disorder, unspecified; F43.10 Post-traumatic stress disorder, unspecified; F17.210 Nicotine dependence, cigarettes, uncomplicated; E66.9 Obesity, unspecified; Z20.822 Contact with and (suspected) exposure to COVID-19; Z79.899 Other long term (current) drug therapy; Z88.8 Allergy status to other drugs, medicaments and biological substances; Z68.35 Body mass index [BMI] 35.0-35.9, adult; Z87.440 Personal history of urinary (tract) infections; Z81.8 Family history of other mental and behavioral disorders; Z71.6 Tobacco abuse counseling
CPT/HCPCS: 99285; 36415; 94640; 93005 ×2; 93306; 85379; 83880; 80061; 80053; 83735; 84484 ×2; 85025; 85610; 85730; 87635; 71046; G0378 ×4; C8930; Q9950; 93351

== ENCOUNTER 2021-02-03 20:18 | Emergency (ER) | payer MEDICARE, OTHER ==
[2021-02-03 21:17] VITALS: TEMP 98.5
--- NOTE | 2021-02-03 22:30 | XR ---
EXAMINATION TYPE: XR knee complete RT DATE OF EXAM: 02/03/2021 COMPARISON: NONE HISTORY: Knee pain TECHNIQUE: 3 views FINDINGS: There is no sign of fracture nor dislocation. Joint spaces are normal. There is no sign of knee joint effusion. IMPRESSION: Negative right knee exam. No fracture.
--- NOTE | 2021-02-04 00:11 | ED ---
Lower Extremity Injury HPI - General Chief Complaint: Extremity Injury, Lower Stated Complaint: R Knee Pain Time Seen by Provider: 02/03/21 23:10 Source: patient, RN notes reviewed Mode of arrival: ambulatory Limitations: no limitations - History of Present Illness Initial Comments: Patient is a 41-year-old male presenting to the emergency Department with complaints of right knee pain for the last 2 days. Patient states 2 days ago, he slipped in his kitchen and twisted his right knee. He states the next day he woke up and it was sore and swelling. He presented today after continued pain. He denies any previous injuries or surgeries to his right knee. He denies any other injuries from the slip and fall. He has no further complaints. - Related Data Home Medications Medication Instructions Recorded Confirmed Imipramine HCl [Tofranil] 50 mg PO DAILY 10/01/20 01/18/21 busPIRone HCL 15 mg PO DAILY 01/18/21 01/18/21 Previous Rx's Medication Instructions Recorded ARIPiprazole [Abilify] 20 mg PO DAILY 30 Days tab 05/03/20 Allergies Allergy/AdvReac Type Severity Reaction Status Date / Time quetiapine [From Seroquel] Allergy Unknown Verified 02/03/21 21:15 Review of Systems ROS Statement: Those systems with pertinent positive or pertinent negative responses have been documented in the HPI. ROS Other: All systems not noted in ROS Statement are negative. Past Medical History Past Medical History: Chest Pain / Angina Additional Past Medical History / Comment(s): Chest Pain but was cleared by c ardiology. UTI history History of Any Multi-Drug Resistant Organisms: None Reported Past Surgical History: No Surgical Hx Reported Past Anesthesia/Blood Transfusion Reactions: No Reported Reaction Additional Past Anesthesia/Blood Transfusion Reaction / Comment(s): pt states he has never had a blood transfusion or anesthesia Past Psychological History: Anxiety, Bipolar, Depression, PTSD Smoking Status: Current every day smoker Past Alcohol Use History: None Reported Past Drug Use History: Marijuana General Exam - General Exam Comments Initial Comments: GENERAL: Patient is well-developed and well-nourished. Patient is nontoxic and in no acute distress. HEAD: Atraumatic, normocephalic. EYES: Pupils equal round and reactive to light, extraocular movements intact, sclera anicteric, conjunctiva are normal. Eyelids were unremarkable. ENT: Moist mucous membranes. LUNGS: Unlabored respirations. Breath sounds clear to auscultation bilaterally and equal. No wheezes rales or rhonchi. HEART: Regular rate and rhythm without murmurs, rubs or gallops. MUSCULOSKELETAL: Patient has some mild pain with palpation of the lateral and medial aspect of the right knee, no swelling or obvious deformity, he does have some decreased range of motion secondary to pain and stiffness. Neurovascular intact. No clubbing or cyanosis. NEUROLOGICAL: Patient is alert and oriented x 3. Normal speech, normal gait. PSYCH: Normal mood, normal affect. SKIN: Warm, Dry, normal turgor, no rashes or lesions noted. Limitations: no limitations Course Vital Signs 02/03/21 21:11 Temperature 98.5 F Pulse Rate 116 H Respiratory 22 Rate Blood Pressure 121/79 O2 Sat by Pulse 98 Oximetry Medical Decision Making - Medical Decision Making Patient is a 41-year-old male here with right knee pain after he slipped and twisted his knee 2 days ago. X-ray show no acute fractures dislocations. Exam is consistent with a mild sprain. I recommended ice to the area, Tylenol or ibuprofen for discomfort. He can follow up with orthopedics if symptoms persist. He is agreeable to this plan. He is stable for discharge. Disposition Clinical Impression: Right knee pain Disposition: HOME SELF-CARE Condition: Stable Instructions (If sedation given, give patient instructions): Knee Pain (ED) Additional Instructions: Please return to the Emergency Department if symptoms worsen or any other concerns. Management I ice to the knee. He may take Tylenol or ibuprofen for any discomfort. Please follow-up with your doctor if symptoms persist. Is patient prescribed a controlled substance at d/c from ED?: No Referrals: [facility] [Primary Care Provider] - 1-2 days Time of Disposition: 00:11
[2021-02-04 00:18] VITALS: BP 128/82; PULSE 110; RESP 18
== END 2021-02-04 00:18 | disposition home or self-care (01) ==
LOC: EC 20:18
DX: M25.561 Pain in right knee (principal); F41.9 Anxiety disorder, unspecified; F31.9 Bipolar disorder, unspecified; F43.10 Post-traumatic stress disorder, unspecified; F17.200 Nicotine dependence, unspecified, uncomplicated; F12.90 Cannabis use, unspecified, uncomplicated; W01.0XXA Fall on same level from slipping, tripping and stumbling without subsequent striking against object, initial encounter; Y92.000 Kitchen of unspecified non-institutional (private) residence as the place of occurrence of the external cause
CPT/HCPCS: 99283

== ENCOUNTER 2021-12-30 20:28 | Emergency (ER) | payer MEDICARE, OTHER ==
[2021-12-30 20:50] VITALS: PULSE 94; RESP 18; TEMP 98.5
[2021-12-31] MEDS ORDERED: KETOROLAC 15 MG/ML 1 ML VIAL IM STA (01:07)
[2021-12-31] MEDS ORDERED: CEPHALEXIN 500 MG CAP PO STA (01:07)
[2021-12-31] MEDS ORDERED: CEPHALEXIN 500MG STARTER PACK 4 CAP BTL PO STA (01:07)
[2021-12-31 01:42] VITALS: BP 136/89
--- NOTE | 2021-12-31 01:43 | ED ---
General Adult HPI - General Chief complaint: Skin/Abscess/Foreign Body Stated complaint: pain rt arm/lump on back of head Time Seen by Provider: 12/31/21 00:43 Source: patient, RN notes reviewed Mode of arrival: ambulatory Limitations: no limitations - History of Present Illness Initial comments: 41-year-old male presents to the emergency department for evaluation of abscess on the posterior aspect of his scalp. Patient states he was started on an oral antibiotic approximately 24 hours ago but has been unable to obtain it from his pharmacy at this time. Patient complains of tenderness to the affected area. Denies any active drainage. No fever, chills, headache, dizziness, difficulty swallowing, chest pain, shortness breath, abdominal pain, nausea, vomiting, diarrhea, or dysuria. - Related Data Home Medications Medication Instructions Recorded Confirmed Imipramine HCl [Tofranil] 50 mg PO DAILY 10/01/20 01/18/21 busPIRone HCL 15 mg PO DAILY 01/18/21 01/18/21 Previous Rx's Medication Instructions Recorded ARIPiprazole [Abilify] 20 mg PO DAILY 30 Days tab 05/03/20 Fluconazole 200 mg PO WEEKLY #6 tab 12/31/21 Allergies Allergy/AdvReac Type Severity Reaction Status Date / Time quetiapine [From Seroquel] Allergy Unknown Verified 02/03/21 21:15 Review of Systems ROS Statement: Those systems with pertinent positive or pertinent negative responses have been documented in the HPI. ROS Other: All systems not noted in ROS Statement are negative. Past Medical History Past Medical History: Chest Pain / Angina Additional Past Medical History / Comment(s): Chest Pain but was cleared by cardiology. UTI history, back lee, neck pain History of Any Multi-Drug Resistant Organisms: None Reported Past Surgical History: No Surgical Hx Reported Past Anesthesia/Blood Transfusion Reactions: No Reported Reaction Additional Past Anesthesia/Blood Transfusion Reaction / Comment(s): pt states he has never had a blood transfusion or anesthesia Past Psychological History: Anxiety, Bipolar, Depression, PTSD Smoking Status: Current every day smoker Past Alcohol Use History: None Reported Past Drug Use History: Marijuana General Exam Limitations: no limitations (Well-developed, well-nourished male in no acute distress. Initial temperature 98.5, pulse 94, respirations 18, blood pressure 116/89, pulse ox 99% on room air.) General appearance: alert, in no apparent distress Head exam: Present: atraumatic, normocephalic ENT exam: Present: normal oropharynx Neck exam: Present: normal inspection, full ROM. Absent: tenderness, meningismus, lymphadenopathy Respiratory exam: Present: normal lung sounds bilaterally. Absent: respiratory distress, wheezes, rales, rhonchi, stridor Cardiovascular Exam: Present: regular rate, normal rhythm, normal heart sounds. Absent: systolic murmur, diastolic murmur, rubs, gallop, clicks Neurological exam: Present: alert, oriented X3, CN II-XII intact, normal gait Psychiatric exam: Present: normal affect, normal mood Skin exam: Present: warm, dry, normal color Expanded Type of lesion: Present: abscess (1 cm abscess to the posterior aspect of the scalp. The surrounding tissue is indurated, but not erythematous. There is no loss of hair or scaling of the skin.) Course Vital Signs 12/30/21 12/31/21 20:46 01:27 Temperature 98.5 F Pulse Rate 94 94 Respiratory 18 18 Rate Blood Pressure 116/89 136/89 O2 Sat by Pulse 99 96 Oximetry Medical Decision Making - Medical Decision Making This is a 41-year-old male who presents to the emergency department for evaluation of abscess on the posterior aspect of the scalp. Upon exam, patient is well-appearing and in no acute distress. Posterior scalp is tender upon palpation. There is no active drainage and surrounding tissue is indurated. I discussed this patient's care with my attending who expresses concern for possible Kerion therefore patient will be prescribed oral fluconazole, but will also be encouraged to obtain his Keflex and take as prescribed. Instructed to follow up with his PCP for a recheck on Sunday. Return parameters discussed in detail. Patient verbalizes understanding and agrees with this plan. Attending: Saw. Disposition Clinical Impression: Scalp abscess, Tinea kerion Disposition: HOME SELF-CARE Condition: Stable Instructions (If sedation given, give patient instructions): Abscess (ED), Skin Yeast Infection (ED) Additional Instructions: Obtain the antibiotic and take as prescribed. You are being prescribed an antifungal medicine as well which you will take once a week for 6 weeks. May take Tylenol or Motrin if needed for discomfort. Follow-up with your PCP for a recheck on Sunday. Return to the emergency department with any new, worsening, or concerning symptoms. Prescriptions: Fluconazole 200 mg PO WEEKLY #6 tab Is patient prescribed a controlled substance at d/c from ED?: No Referrals: [facility] [Primary Care Provider] - 1-2 days Time of Disposition: 01:43
== END 2021-12-31 01:56 | disposition home or self-care (01) ==
LOC: EC 20:28
DX: L02.811 Cutaneous abscess of head [any part, except face] (principal); B35.0 Tinea barbae and tinea capitis; F41.9 Anxiety disorder, unspecified; F31.9 Bipolar disorder, unspecified; F17.200 Nicotine dependence, unspecified, uncomplicated; F12.90 Cannabis use, unspecified, uncomplicated; Z88.8 Allergy status to other drugs, medicaments and biological substances; Z79.899 Other long term (current) drug therapy
CPT/HCPCS: 99282; 96372; J1885

== ENCOUNTER 2023-03-01 05:23 | Emergency (ER) | payer MEDICARE, OTHER ==
[2023-03-01 06:04] VITALS: RESP 18; TEMP 98.4
--- NOTE | 2023-03-01 06:34 | ED ---
General Adult HPI - General Chief complaint: Recheck/Abnormal Lab/Rx Stated complaint: Medication Refill Time Seen by Provider: 03/01/23 06:15 Source: patient, RN notes reviewed Mode of arrival: ambulatory Limitations: no limitations - History of Present Illness Initial comments: 43-year-old male with an extensive psychiatric medical history p resents the emergency department with a chief complaint of medication refill. Patient reports that he has a later in the afternoon at approximately 3 PM. He reports that he has since increased anxiety due to recent in his family. He reports that he was to take his antianxiety medications however her forgot. He does not have enough time to drive 30 minutes home in order to take his medications. He is requesting to have one dose of Abilify. He offers no other specific symptoms. - Related Data Home Medications Medication Instructions Recorded Confirmed Imipramine HCl [Tofranil] 50 mg PO DAILY 10/01/20 01/18/21 busPIRone HCL 15 mg PO DAILY 01/18/21 01/18/21 Previous Rx's Medication Instructions Recorded ARIPiprazole [Abilify] 20 mg PO DAILY 30 Days tab 05/03/20 Fluconazole 200 mg PO WEEKLY #6 tab 12/31/21 Allergies Allergy/AdvReac Type Severity Reaction Status Date / Time quetiapine [From Seroquel] Allergy Unknown Verified 03/01/23 05:47 Review of Systems ROS Statement: Those systems with pertinent positive or pertinent negative responses have been documented in the HPI. ROS Other: All systems not noted in ROS Statement are negative. Past Medical History Past Medical History: Chest Pain / Angina Additional Past Medical History / Comment(s): Chest Pain but was cleared by cardiology. UTI history, back pain, neck pain History of Any Multi-Drug Resistant Organisms: None Reported Past Surgical History: Hernia Repair Past Anesthesia/Blood Transfusion Reactions: No Reported Reaction Additional Past Anesthesia/Blood Transfusion Reaction / Comment(s): pt states he has never had a blood transfusion or anesthesia Past Psychological History: Anxiety, Bipolar, Depression, PTSD Smoking Status: Current every day smoker Past Alcohol Use History: None Reported Past Drug Use History: Marijuana General Exam - General Exam Comments Initial Comments: General: Alert, in no acute distress Head: atraumatic normocephalic. Eyes PERRL, EOMI intact, mucous membranes moist Respiratory: Lungs clear to auscultation bilaterally Cardiovascular: Heart rate regular rate and rhythm Abdominal: Soft without guarding or rebound Extremities: Normal inspection with full range of motion and normal capillary refill Neuroogic: alert and oriented 3, CN II-XII intact, able to ambulate with steady gait Skin: warm dry and intact with normal color Limitations: no limitations Course Vital Signs 03/01/23 03/01/23 05:44 06:49 Temperature 98.4 F Pulse Rate 62 76 Respiratory 18 18 Rate Blood Pressure 114/84 108/79 O2 Sat by Pulse 95 95 Oximetry Medical Decision Making - Medical Decision Making Was pt. sent in by a medical professional or institution (, CARLOS, CERTIFIED LACTATION EDUCATOR, urgent care, hospital, or fpc...) When possible be specific @ -[No] Did you speak to anyone other than the patient for history (EMS, parent, family, police, friend...)? What history was obtained from this source @ -[No] Did you review nursing and triage notes (agree or disagree)? Why? @ -[I reviewed and agree with nursing and triage notes] Were old charts reviewed (outside hosp., previous admission, EMS record, old EKG, old radiological studies, urgent care reports/EKG's, fpc records)? Report findings @ -[No old charts were reviewed] Differential Diagnosis (chest pain, altered mental status, abdominal pain women, abdominal pain men, vaginal bleeding, weakness, fever, dyspnea, syncope, headache, dizziness, GI bleed, back pain, seizure, CVA, palpatations, mental health, musculoskeletal)? @ -[not applicable] EKG interpreted by me (3pts min.). @ -[As above] X-rays interpreted by me (1pt min.). @ -[None done] CT interpreted by me (1pt min.). @ -[None done] U/S interpreted by me (1pt. min.). @ -[None done] What testing was considered but not performed or refused? (CT, X-rays, U/S, labs)? Why? @ -[None] What meds were considered but not given or refused? Why? @ -[None] Did you discuss the management of the patient with other professionals (professionals i.e. , CARLOS, CERTIFIED LACTATION EDUCATOR, lab, RT, psych nurse, social media marketing manager, research attorney, teacher, aoc aadc operations staff officer, wrapper caser)? Give summary @ -[No] Was smoking cessation discussed for >3mins.? @ -[No] Was critical care preformed (if so, how long)? @ -[No] Were there social determinants of health that impacted care today? How? (Homelessness, low income, unemployed, alcoholism, drug addiction, transportation, low edu. Level, literacy, decrease access to med. care, long-term, rehab)? @ -[No] Was there de-escalation of care discussed even if they declined (Discuss DNR or withdrawal of care, Hospice)? DNR status @ -[No] What co-morbidities impacted this encounter? (DM, HTN, Smoking, COPD, CAD, Cancer, CVA, ARF, Chemo, Hep., AIDS, mental health diagnosis, sleep apnea, morbid obesity)? @ -[None] Was patient admitted / discharged? Hospital course, mention meds given and route, prescriptions, significant lab abnormalities, going to OR and other pertinent info. @ Discharged. This is a pleasant 43-year-old male presents emergency department with medication refill. He should had a history and physical exam performed. Physical exam essentially unremarkable. Patient will be given single dose of Abilify. He will be discharged in stable condition with strict return parameters discussed. Case is discussed with Dr. Rojas, ED attending who agrees with plan of care Undiagnosed new problem with uncertain prognosis? @ -[No] Drug Therapy requiring intensive monitoring for toxicity (Heparin, Nitro, Insulin, Cardizem)? @ -[No] Were any procedures done? @ -[No] Diagnosis/symptom? @ -Medication Refill Acute, or Chronic, or Acute on Chronic? @ -Acute Uncomplicated (without systemic symptoms) or Complicated (systemic symptoms)? @ -Uncomplicated Side effects of treatment? @ -[No] Exacerbation, Progression, or Severe Exacerbation? @ -[No] Poses a threat to life or bodily function? How? (Chest pain, [place], [place], pneumonia, PE, COPD, DKA, ARF, appy, cholecystitis, CVA, Diverticulitis, Homicidal, Suicidal, threat to staff... and all critical care pts) @ -Low likelihood Disposition Clinical Impression: Medication refill Disposition: HOME SELF-CARE Condition: Stable Additional Instructions: Please return to the nearest emergency department if worsening symptoms Is patient prescribed a controlled substance at d/c from ED?: No Referrals: [facility] [Primary Care Provider] - 1-2 days Time of Disposition: 06:34
[2023-03-01 06:53] VITALS: BP 108/79; PULSE 76
[2023-03-01] MEDS ORDERED: ARIPiprazole 15 MG TAB PO SCH (09:00)
== END 2023-03-01 06:49 | disposition home or self-care (01) ==
LOC: EC 05:23
DX: Z76.0 Encounter for issue of repeat prescription (principal); F31.9 Bipolar disorder, unspecified; F41.9 Anxiety disorder, unspecified; F17.200 Nicotine dependence, unspecified, uncomplicated; F12.90 Cannabis use, unspecified, uncomplicated; Z79.899 Other long term (current) drug therapy
CPT/HCPCS: 99281

== ENCOUNTER 2023-04-30 19:02 | Emergency (ER) | payer MEDICARE, OTHER ==
[2023-04-30 19:27] VITALS: TEMP 97.6
--- NOTE | 2023-04-30 19:37 | XR ---
EXAMINATION TYPE: XR chest 2V DATE OF EXAM: 04/30/2023 COMPARISON: 01/18/2021 HISTORY: Chest pain TECHNIQUE: Frontal and lateral views of the chest are obtained. FINDINGS: There is no focal air space opacity, pleural effusion, or pneumothorax seen. The cardiac silhouette size is within normal limits. The osseous structures are intact. IMPRESSION: No acute cardiopulmonary process.
--- NOTE | 2023-04-30 20:07 | ED ---
Chest Pain HPI - General Source: patient Mode of arrival: ambulatory Limitations: no limitations <Wanda Soriano - Last Filed: 04/30/23 20:07> - General Source: RN notes reviewed, old records reviewed <Kentrell Carcamo - Last Filed: 04/30/23 23:09> - General Chief Complaint: Chest Pain Stated Complaint: Chest Pain,Sob Time Seen by Provider: 04/30/23 20:07 - History of Present Illness Initial Comments: 43-year-old male presenting with chief complaint of chest pain and shortness of breath. Started about 45 minutes prior to arrival. Pain has improved since arrival. (Wanda Soriano) Patient with chief complaint of anxiety and associated chest pain. Symptoms began just prior to arrival. Patient does admit to have increasing anxiety and states that he has an appointment with [facility] tomorrow. He is on psychiatric medication which she states have helped somewhat with his anxiety but not completely resolved. He denies suicidal or homicidal ideation. No chest pain at the time my evaluation. No prior history of CAD. No dyspnea. Fever. No cough. No abdominal pain. No vomiting (Kentrell Carcamo) - Related Data Home Medications Medication Instructions Recorded Confirmed Imipramine HCl [Tofranil] 50 mg PO DAILY 10/01/20 01/18/21 busPIRone HCL 15 mg PO DAILY 01/18/21 01/18/21 Previous Rx's Medication Instructions Recorded ARIPiprazole [Abilify] 20 mg PO DAILY 30 Days tab 05/03/20 Fluconazole 200 mg PO WEEKLY #6 tab 12/31/21 Allergies Allergy/AdvReac Type Severity Reaction Status Date / Time quetiapine [From Seroquel] Allergy Unknown Verified 03/01/23 05:47 Review of Systems ROS Other: All systems not noted in ROS Statement are negative. <Wanda Soriano - Last Filed: 04/30/23 20:07> ROS Other: All systems not noted in ROS Statement are negative. <Kentrell Carcamo - Last Filed: 04/30/23 23:09> ROS Statement: Those systems with pertinent positive or pertinent negative responses have been documented in the HPI. Past Medical History Past Medical History: Chest Pain / Angina Additional Past Medical History / Comment(s): Chest Pain but was cleared by cardiology. UTI history, back pain, neck pain History of Any Multi-Drug Resistant Organisms: None Reported Past Surgical History: Hernia Repair Past Anesthesia/Blood Transfusion Reactions: No Reported Reaction Additional Past Anesthesia/Blood Transfusion Reaction / Comment(s): pt states he has never had a blood transfusion or anesthesia Past Psychological History: Anxiety, Bipolar, Depression, PTSD Smoking Status: Current every day smoker Past Alcohol Use History: None Reported Past Drug Use History: Marijuana <Wanda Soriano - Last Filed: 04/30/23 20:07> General Exam Limitations: no limitations <Wanda Soriano - Last Filed: 04/30/23 20:07> General appearance: alert, in no apparent distress Head exam: Present: atraumatic, normocephalic Eye exam: Present: normal appearance, PERRL ENT exam: Present: normal exam Neck exam: Present: normal inspection. Absent: tenderness, meningismus Respiratory exam: Present: normal lung sounds bilaterally. Absent: respiratory distress, wheezes Cardiovascular Exam: Present: regular rate, normal rhythm GI/Abdominal exam: Present: soft. Absent: distended, tenderness Extremities exam: Present: normal inspection, normal capillary refill Neurological exam: Present: alert, oriented X3, CN II-XII intact. Absent: motor sensory deficit Psychiatric exam: Present: flat affect. Absent: suicidal ideation Skin exam: Present: warm, dry, intact <Kentrell Carcamo - Last Filed: 04/30/23 23:09> - General Exam Comments Initial Comments: Visual Physical Exam Vital signs reviewed General: Well-appearing, nontoxic, no acute distress. Head: Normocephalic, atraumatic Eyes: PERRLA, EOMI ENT: Airway patent Chest: Nonlabored breathing Skin: No visual rash, normal skin tone Neuro: Alert and oriented 3 Musculoskeletal: No gross abnormalities (Wanda Soriano) Course Vital Signs 04/30/23 19:05 Temperature 97.6 F Pulse Rate 87 Respiratory 20 Rate Blood Pressure 124/83 O2 Sat by Pulse 99 Oximetry Chest Pain MDM <Wanda Soriano - Last Filed: 04/30/23 20:07> <Kentrell Carcamo - Last Filed: 04/30/23 23:09> - CASH I performed the quick note portion of this visit, electronically signed Wanda Soriano PA-C (Wanda Soriano) Was pt. sent in by a medical professional or institution (CARLOS Mcmillan, RECOVERY ROOM RN, urgent care, hospital, or intermediate...) When possible be specific @ -No Did you speak to anyone other than the patient for history (EMS, parent, family, police, friend...)? What history was obtained from this source @ -No Did you review nursing and triage notes (agree or disagree)? Why? @ -I reviewed and agree with nursing and triage notes Were old charts reviewed (outside hosp., previous admission, EMS record, old EKG, old radiological studies, urgent care reports/EKG's, intermediate records)? Report findings @ -No old charts were reviewed Differential Diagnosis (chest pain, altered mental status, abdominal pain women, abdominal pain men, vaginal bleeding, weakness, fever, dyspnea, syncope, headache, dizziness, GI bleed, back pain, seizure, CVA, palpatations, mental health, musculoskeletal)? @ -Differential Mental Health Depression, anxiety, bipolar, psychosis, schizophrenia, borderline personality, situational depression, adjustment disorder, behavioral disorder, brain tumor, malingering, substance abuse, encephalopathy, medication reaction, dementia, hypothyroidism, degenerative neurologic disorder, lupus.... This is not meant to be all-inclusive list EKG interpreted by me (3pts min.). @ -[EKG: Sinus rhythm rate of 80, PA interval 147, QRS duration 94, QTc [address] segment changes. X-rays interpreted by me (1pt min.). @ -Chest x-ray negative for acute cardiopulmonary findings. CT interpreted by me (1pt min.). @ -None done U/S interpreted by me (1pt. min.). @ -None done What testing was considered but not performed or refused? (CT, X-rays, U/S, labs)? Why? @ -None What meds were considered but not given or refused? Why? @ -None Did you discuss the management of the patient with other professionals (professionals i.e. CARLOS Mcmillan, RECOVERY ROOM RN, lab, RT, psych nurse, social insurance specialist, home care scheduler, teacher, admissions officer, wrapper caser)? Give summary @ -No Was smoking cessation discussed for >3mins.? @ -No Was critical care preformed (if so, how long)? @ -No Were there social determinants of health that impacted care today? How? (Homelessness, low income, unemployed, alcoholism, drug addiction, transportation, low edu. Level, literacy, decrease access to med. care, intermediate, rehab)? @ -No Was there de-escalation of care discussed even if they declined (Discuss DNR or withdrawal of care, Hospice)? DNR status @ -No What co-morbidities impacted this encounter? (DM, HTN, Smoking, COPD, CAD, Cancer, CVA, ARF, Chemo, Hep., AIDS, mental health diagnosis, sleep apnea, morbid obesity)? @ -[Anxiety, depression, no history of CAD Was patient admitted / discharged? Hospital course, mention meds given and route, prescriptions, significant lab abnormalities, going to OR and other pertinent info. @ -43-year-old male presenting with an episode of chest pain, anxiety. No suicidal or homicidal ideation. Chest pain is resolved. EKG is sinus rhythm without ST segment elevation. Chest x-ray is clear. He has a normal CBC, normal CMP, negative troponin. Given the central chest pain I did repeat the troponin which again is negative. The patient has no further chest pain and states he has an appointment with [facility] tomorrow. He is not suicidal and is stable for discharge at this time. Undiagnosed new problem with uncertain prognosis? @ -No Drug Therapy requiring intensive monitoring for toxicity (Heparin, Nitro, Insulin, Cardizem)? @ -No Were any procedures done? @ -No Diagnosis/symptom? @ -[Anxiety, chest pain Acute, or Chronic, or Acute on Chronic? @ -Acute Uncomplicated (without systemic symptoms) or Complicated (systemic symptoms)? @ -Default Side effects of treatment? @ -No Exacerbation, Progression, or Severe Exacerbation? @ -No Poses a threat to life or bodily function? How? (Chest pain, [place], [place], pneumonia, PE, COPD, DKA, ARF, appy, cholecystitis, CVA, Diverticulitis, Homicidal, Suicidal, threat to staff... and all critical care pts) @Low risk at this time (Kentrell Carcamo) Disposition <Wanda Soriano - Last Filed: 04/30/23 20:07> Is patient prescribed a controlled substance at d/c from ED?: No Time of Disposition: 23:25 <Kentrell Carcamo - Last Filed: 04/30/23 23:09> Clinical Impression: Chest pain, Anxiety Disposition: HOME SELF-CARE Condition: Good Instructions (If sedation given, give patient instructions): Chest Pain (ED), Anxiety (ED) Additional Instructions: Follow closely with community mental health. Please return with worsening or changing symptoms Referrals: [facility] [Primary Care Provider] - 1-2 days
[2023-04-30 20:17] LABS: Basophils # (A) 0.1 k/uL (0-0.2); Basophils % (A) 1 %; Eosinophils # (A) 0.1 k/uL (0-0.7); Eosinophils % (A) 1 %; HCT 49.7 % (39.0-53.0); Lymphocytes # (A) 2.8 k/uL (1.0-4.8); Lymphocytes % (A) 30 %; MCH 29.4 pg (25.0-35.0); MCHC 34.3 g/dL (31.0-37.0); MCV 85.9 fL (80.0-100.0); Monocytes # (A) 0.4 k/uL (0-1.0); Monocytes % (A) 5 %; Neutrophils # (A) 5.9 k/uL (1.3-7.7); Neutrophils % (A) 62 %; Platelet Count 305 k/uL (150-450); RBC 5.79 m/uL (4.30-5.90); RDW 13.3 % (11.5-15.5); WBC 9.5 k/uL (3.8-10.6)
[2023-04-30 20:29] LABS: INR 0.9 (<1.2); Partial Thromboplastin Time 25.5 sec (22.0-30.0); Prothrombin Time 10.3 sec (10.0-12.5)
[2023-04-30 20:30] LABS: ALT 28 U/L (4-49); AST 30 U/L (17-59); African American GFR (CKD) >90 (>60 ml/min/1.73 sqM); Albumin 4.2 g/dL (3.5-5.0); Alkaline Phosphatase 90 U/L (38-126); Anion Gap 9 mmol/L; Blood Urea Nitrogen 11 mg/dL (9-20); Calcium 9.1 mg/dL (8.4-10.2); Carbon Dioxide 20 mmol/L (22-30); Chloride 108 mmol/L (98-107); Glucose 88 mg/dL (74-99); Magnesium 2.1 mg/dL (1.6-2.3); Non-African American GFR(CKD) >90 (>60 ml/min/1.73 sqM); Potassium 4.4 mmol/L (3.5-5.1); Sodium 137 mmol/L (137-145); Total Bilirubin 0.8 mg/dL (0.2-1.3)
[2023-04-30 23:43] VITALS: RESP 19
[2023-05-01 00:59] VITALS: BP 111/75; PULSE 77
== END 2023-05-01 00:57 | disposition home or self-care (01) ==
LOC: EC 19:02
DX: R07.89 Other chest pain (principal); F41.9 Anxiety disorder, unspecified; F31.9 Bipolar disorder, unspecified; F17.200 Nicotine dependence, unspecified, uncomplicated; F12.90 Cannabis use, unspecified, uncomplicated; Z79.899 Other long term (current) drug therapy; Z88.8 Allergy status to other drugs, medicaments and biological substances
CPT/HCPCS: 36415; 71046; 80053; 83735; 84484; 85025; 85610; 85730; 93005; 99285

== ENCOUNTER 2023-10-20 00:07 | Observation (INO) | payer MEDICARE, OTHER ==
[2023-10-20] MEDS ORDERED: MORPHINE SULFATE 4 MG/ML SYRINGE ONE (00:40)
[2023-10-20] MEDS ORDERED: FAMOTIDINE 20 MG/2 ML VIAL ONE (09:26)
[2023-10-20] MEDS ORDERED: HEPARIN SODIUM,PORCINE 5,000 UNIT/ML 1 ML VIAL ONE ×3 (09:57→20:36)
[2023-10-20] MEDS ORDERED: ACETAMINOPHEN TAB 325 MG TAB ONE ×2 (17:22→21:25)
[2023-10-20] MEDS ORDERED: SODIUM CHLORIDE 0.9% 1,000 ML BAG ONE (23:59)
[2023-10-21] MEDS ORDERED: FAMOTIDINE 20 MG/2 ML VIAL ONE (07:47)
[2023-10-21] MEDS ORDERED: HEPARIN SODIUM,PORCINE 5,000 UNIT/ML 1 ML VIAL ONE (07:48)
--- NOTE | 2023-11-13 15:23 | US ---
EXAMINATION TYPE: US venous doppler duplex LE DATE OF EXAM: 10/20/2023 COMPARISON: NONE CLINICAL INDICATION: Male, 43 years old with history of Swelling; SIDE PERFORMED: Bilateral TECHNIQUE: The lower extremity deep venous system is examined utilizing real time linear array sonog keyanna with graded compression, doppler sonography and color-flow sonography. VESSELS IMAGED: Common Femoral Vein Deep Femoral Vein Greater Saphenous Vein * Femoral Vein Popliteal Vein Small Saphenous Vein * Proximal Calf Veins (* superficial vessels) Right Leg: Negative for DVT Left Leg: Negative for DVT IMPRESSION: Grayscale, color doppler, spectral doppler imaging performed of the deep veins of the lo wer extremities. There is normal flow, compressibility, vascular waveforms.
--- NOTE | 2023-11-14 15:28 | XR ---
EXAMINATION TYPE: XR chest 1V portable DATE OF EXAM: 10/20/2023 COMPARISON: Chest radiographs from 04/30/2023 TECHNIQUE: XR chest 1V portable Portable AP radiograph of the chest. CLINICAL INDICATION:Male, 43 years old with history of STEMI; FINDINGS: Lungs/Pleura: There is no evidence of pleural effusion, focal consolidation, or pneumothorax. Chroni c elevation of the right hemidiaphragm. Pulmonary vascularity: Unremarkable. Heart/mediastinum: Cardiomediastinal silhouette is unremarkable. Musculoskeletal: No acute osseous pathology. Other findings: None IMPRESSION: No acute cardiopulmonary disease/process.
== END 2023-10-21 13:15 | disposition home or self-care (01) ==
LOC: EC 00:07 → 6NMEDSUR 03:32 → INTOOBSV 05:28 → 6NMEDSUR 05:28 → UNDOADMOB 05:28 → UNDODISIN 10-21 13:25
PROVIDERS: ADMIT Hospitalist; ATTEND Hospitalist
DX: R07.89 Other chest pain (principal); I25.10 Atherosclerotic heart disease of native coronary artery without angina pectoris; R94.31 Abnormal electrocardiogram [ECG] [EKG]; E78.5 Hyperlipidemia, unspecified; F32.A Depression, unspecified; E66.9 Obesity, unspecified; Z68.1 Body mass index [BMI] 19.9 or less, adult; R60.9 Edema, unspecified; R55 Syncope and collapse; M79.652 Pain in left thigh; F17.210 Nicotine dependence, cigarettes, uncomplicated; Z79.899 Other long term (current) drug therapy; Z88.8 Allergy status to other drugs, medicaments and biological substances; Z95.5 Presence of coronary angioplasty implant and graft; Z87.442 Personal history of urinary calculi
CPT/HCPCS: 71045; 93005; 93970; 96374; 99285

== ENCOUNTER 2024-08-09 21:51 | Inpatient (IN) | payer MEDICARE ==
--- NOTE | 2024-08-09 22:20 | ED ---
General Adult HPI - General Chief complaint: Psychiatric Symptoms Stated complaint: suicidal Time Seen by Provider: 08/09/24 21:55 Source: patient Mode of arrival: EMS - History of Present Illness Initial comments: Dictation was produced using [employer] dictation software. please excuse any grammatical, word or spelling errors. Chief Complaint: 44-year-old male with suicidal ideation. History of Present Illness: 44-year-old male suicidal ideation. Called the suicide hotline. EMS allegedly knocked on his door patient was brought to the ER. Patient allegedly had a rope around his neck however he did not harm himself. The ROS documented in this emergency department record has been reviewed and confirmed by me. Those systems with pertinent positive or negative responses have been documented in the HPI. All other systems are other negative and/or noncontributory. - Related Data Home Medications Medication Instructions Recorded Confirmed Imipramine HCl [Tofranil] 50 mg PO DAILY 10/01/20 01/18/21 busPIRone HCL 15 mg PO DAILY 01/18/21 01/18/21 Previous Rx's Medication Instructions Recorded ARIPiprazole [Abilify] 20 mg PO DAILY 30 Days tab 05/03/20 Fluconazole 200 mg PO WEEKLY #6 tab 12/31/21 Allergies Allergy/AdvReac Type Severity Reaction Status Date / Time quetiapine [From Seroquel] Allergy Unknown Verified 08/09/24 22:00 Review of Systems ROS Statement: Those systems with pertinent positive or pertinent negative responses have been documented in the HPI. ROS Other: All systems not noted in ROS Statement are negative. Past Medical History Past Medical History: Chest Pain / Angina Additional Past Medical History / Comment(s): Chest Pain but was cleared by cardiology. UTI history, back pain, neck pain History of Any Multi-Drug Resistant Organisms: None Reported Past Surgical History: Hernia Repair Past Anesthesia/Blood Transfusion Reactions: No Reported Reaction Additional Past Anesthesia/Blood Transfusion Reaction / Comment(s): pt states he has never had a blood transfusion or anesthesia Past Psychological History: Anxiety, Bipolar, Depression, PTSD Smoking Status: Current every day smoker Past Alcohol Use History: None Reported Past Drug Use History: Marijuana General Exam - General Exam Comments Initial Comments: PHYSICAL EXAM: General Impression: Alert and oriented x3, not in acute distress HEENT: Normocephalic atraumatic, extra-ocular movements intact, pupils equal and reactive to light bilaterally, mucous membranes moist. Cardiovascular: Heart regular rate and rhythm Chest: Able to complete full sentences, no retractions, no tachypnea Abdomen: abdomen soft, non-tender, non-distended, no organomegaly Musculoskeletal: Pulses present and equal in all extremities, no peripheral edema Motor: no focal deficits noted Neurological: CN II-XII grossly intact, no focal motor or sensory deficits noted Skin: Intact with no visualized rashes Psych: Normal affect and mood Course Vital Signs 08/09/24 21:57 Temperature 99.1 F Pulse Rate 88 Respiratory 18 Rate Blood Pressure 136/85 O2 Sat by Pulse 95 Oximetry Medical Decision Making - Medical Decision Making Was pt. sent in by a medical professional or institution (, PA, ENTERPRISE APPLICATIONS MANAGER, urgent care, hospital, or fci...) When possible be specific @ -No Did you speak to anyone other than the patient for history (EMS, parent, family, police, friend...)? What history was obtained from this source @ -No Did you review nursing and triage notes (agree or disagree)? Why? @ -I reviewed and agree with nursing and triage notes Were old charts reviewed (outside hosp., previous admission, EMS record, old EKG, old radiological studies, urgent care reports/EKG's, fci records)? Report findings @ -No old charts were reviewed Differential Diagnosis (chest pain, altered mental status, abdominal pain women, abdominal pain men, vaginal bleeding, musculoskeletal, weakness, fever, dyspnea, syncope, headache, dizziness, GI bleed, back pain, seizure, CVA, palpatations, mental health)? @ -Differential Mental Health: Depression, anxiety, bipolar, psychosis, schizophrenia, borderline personality, situational depression, adjustment disorder, behavioral disorder, brain tumor, malingering, substance abuse, encephalopathy, medication reaction, dementia, hypothyroidism, degenerative neurologic disorder, lupus.... This is not meant to be all-inclusive list EKG interpreted by me (3pts min.). @ -None done X-rays interpreted by me (1pt min.). @ -None done CT interpreted by me (1pt min.). @ -None done U/S interpreted by me (1pt. min.). @ -None done What testing was considered but not performed or refused? (CT, X-rays, U/S, labs)? Why? @ -None What meds were considered but not given or refused? Why? @ -None Was smoking cessation discussed for >3mins.? @ -No Were there social determinants of health that impacted care today? How? (Homelessness, low income, unemployed, alcoholism, drug addiction, transportatio n, low edu. Level, literacy, decrease access to med. care, care home, rehab)? @ -No Was there de-escalation of care discussed even if they declined (Discuss DNR or withdrawal of care, Hospice)? DNR status @ -No What co-morbidities impacted this encounter? (DM, HTN, Smoking, COPD, CAD, Cancer, CVA, ARF, Chemo, Hep., AIDS, mental health diagnosis, sleep apnea, morbid obesity)? @ -None Was patient admitted / discharged? Hospital course, mention meds given and route, prescriptions, significant lab abnormalities, going to OR and other pertinent info. @ -44-year-old male medically cleared for EPS evaluation for suicidal ideation. Patient evaluated EPS recommended inpatient psychiatric admission. Patient will sign involuntarily Did you discuss the management of the patient with other professionals (professionals i.e. , PA, ENTERPRISE APPLICATIONS MANAGER, lab, RT, psych nurse, sr. social media & mobile manager, over the horizon targeting supervisor, teacher, credit risk review officer, watch case polisher)? Give summary @ -No Was critical care preformed (if so, how long)? @ -No Undiagnosed new problem with uncertain prognosis? @ -No Drug Therapy requiring intensive monitoring for toxicity (Heparin, Nitro, Insulin, Cardizem)? @ -No Were any procedures done? @ -No Diagnosis/symptom? Acute, or Chronic, or Acute on Chronic? Uncomplicated (without systemic symptoms) or Complicated (systemic symptoms)? @ -Suicidal ideation Side effects of treatment? @ -No Exacerbation, Progression, or Severe Exacerbation? @ -No Poses a threat to life or bodily function? How? (Chest pain, [place], [place], pneumonia, PE, COPD, DKA, ARF, appy, cholecystitis, CVA, Diverticulitis, Homicidal, Suicida l, threat to staff... and all critical care pts) @ -yes Disposition Clinical Impression: Suicidal ideation Disposition: TRANSFER TO PSYCH HOSP/UNIT Condition: Fair Referrals: Sawyer Peters MD [Primary Care Provider] - 1-2 days Decision Time: 23:08
[2024-08-10] MEDS ORDERED: MAGNESIUM HYDROXIDE 2,400 MG/30 ML CUP PO PRN (00:19)
[2024-08-10] MEDS ORDERED: haloperidoL 5 MG TAB PO PRN (00:19)
[2024-08-10] MEDS ORDERED: LORazepam 2 MG/ML INJ IM PRN (00:19)
[2024-08-10] MEDS ORDERED: OLANZapine 10 MG VIAL IM PRN (00:19)
[2024-08-10] MEDS ORDERED: MAG HYDROX/AL HYDROX/SIMETH 355 ML BOTTLE PO PRN (00:19)
[2024-08-10 07:23] LABS: Basophils # (A) 0.04 10*3/uL (0.00-0.10); Basophils % (A) 0.5 %; Eosinophils # (A) 0.16 10*3/uL (0.04-0.35); Eosinophils % (A) 1.8 %; HCT 49.9 % (39.6-50.0); HGB 16.9 g/dL (13.0-17.0); Lymphocytes # (A) 3.36 10*3/uL (0.90-5.00); Lymphocytes % (A) 38.8 %; MCH 28.9 pg (27.0-32.0); MCHC 33.9 g/dL (32.0-37.0); MCV 85.3 fL (80.0-97.0); Mean Platelet Volume 9.3 fL (9.5-12.2); Monocytes % (A) 9.2 %; Neutrophils # (A) 4.28 10*3/uL (1.80-7.70); Neutrophils % (A) 49.5 %; Platelet Count 310 10*3/uL (140-440); RBC 5.85 10*6/uL (4.40-5.60); RDW 13.4 % (11.5-14.5); WBC 8.66 10*3/uL (4.50-10.00)
[2024-08-10 07:37] LABS: ALT 34 U/L (4-49); AST 26 U/L (17-59); African American GFR (CKD) >90 (>60 ml/min/1.73 sqM); Albumin 4.1 g/dL (3.5-5.0); Alkaline Phosphatase 91 U/L (38-126); Anion Gap 9 mmol/L; Blood Urea Nitrogen 15 mg/dL (9-20); Calcium 9.3 mg/dL (8.4-10.2); Carbon Dioxide 27 mmol/L (22-30); Chloride 104 mmol/L (98-107); Glucose 102 mg/dL (74-99); Non-African American GFR(CKD) >90 (>60 ml/min/1.73 sqM); Potassium 4.2 mmol/L (3.5-5.1); Sodium 140 mmol/L (137-145); Total Bilirubin 0.7 mg/dL (0.2-1.3); Total Protein 6.7 g/dL (6.3-8.2)
[2024-08-10] MEDS: ARIPiprazole 15 MG TAB PO SCH (08:03)
[2024-08-10] MEDS: NICOTINE 14MG/24HR PATCH TRANSDERM SCH (08:03)
[2024-08-10] MEDS: busPIRone HCl 10 MG TAB PO SCH (08:03)
[2024-08-10] MEDS: IMIPRAMINE 25 MG TAB PO SCH (08:04)
[2024-08-10 10:21] LABS: Appearance,Urine Clear (Clear); Bilirubin,Urine Negative (Negative); Blood,Urine Negative (Negative); Color,Urine Light Yellow; Glucose,Urine (UA) Negative (Negative); Ketones,Urine Negative (Negative); Leukocyte Esterase,Urine Small (Negative); Mucus,Urine Few /hpf; Nitrite,Urine Negative (Negative); Protein,Urine Negative (Negative); RBC,Urine <1 /hpf (0-5); Specific Gravity,Urine 1.021 (1.001-1.035); Squamous Epithelial Cell,Urine 1 /hpf (0-4); Urobilinogen,Urine <2.0 mg/dL (<2.0); WBC,Urine 12 /hpf (0-5)
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
[2024-08-10 10:37] LABS: Amphetamine Screen,Urine Not Detected (NotDetected); Barbiturate Screen,Urine Not Detected (NotDetected); Benzodiazepines Screen,Urine Not Detected (NotDetected); Cocaine Screen,Urine Not Detected (NotDetected); Methadone Screen, Urine Not Detected (NotDetected); Opiate Screen,Urine Not Detected (NotDetected); Oxycodone Screen, Urine Not Detected (NotDetected); Phencyclidine Screen,Urine Not Detected (NotDetected); Tricyclic Antidepressant,Urine Detected (NotDetected); Urn Cannabinoid Scrn Detected (NotDetected)
[2024-08-10] MEDS: GABAPENTIN 300 MG CAP PO SCH (16:31)
[2024-08-10] MEDS: IBUPROFEN 600 MG TAB PO PRN (20:29)
--- NOTE | 2024-08-11 08:20 | HP ---
HISTORY AND PHYSICAL CHIEF COMPLAINT: Major depression, currently with suicidal thoughts. HISTORY OF PRESENT ILLNESS: This 44-year-old male apparently was brought to the emergency room, admitting to major depression and suicidal thoughts. REVIEW OF SYSTEMS: Unremarkable otherwise except is complaining of left-sided sciatica, which he has had trouble with on and off in the past. PHYSICAL EXAMINATION: VITAL SIGNS: Normal. HEAD, EARS, EYES, NOSE AND MOUTH: Normal. CHEST: Clear. CARDIAC: Normal. ABDOMEN: Soft, nontender. It is slightly protuberant. EXTREMITIES: Normal. IMPRESSION: 1. Major depression. 2. Suicidal thoughts. 3. Left-sided sciatica. RECOMMENDATIONS: None. MMODL / IJN: [id number] /
[2024-08-11] MEDS: lamoTRIgine 25 MG TAB PO SCH (08:38)
[2024-08-11] MEDS ORDERED: IMIPRAMINE 25 MG TAB PO SCH (09:00)
[2024-08-11] MEDS ORDERED: busPIRone HCl 5 MG TAB PO SCH (09:00)
[2024-08-11] MEDS: ACETAMINOPHEN TAB 325 MG TAB PO PRN (12:35)
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
[2024-08-11] MEDS: LORazepam 1 MG TAB PO PRN (19:01)
[2024-08-12 09:48] VITALS: BMI 16.6
--- NOTE | 2024-08-12 12:04 | P.PN ---
Progress Note - Text Progress Note Date: 08/12/24 Chief complaint: Suicide attempt Interval History: Patient was seen wandering the hallways and was directable and agreeable to speak with web content writer in the office. I met with the patient and he notes that he is staying positive. He also notes that he is starting exercise and ready. He notes that he has no depression and minimal anxiety. He denies any suicidal or homicidal thoughts. He notes with the current medication regimen he is sleeping good. He notes that his energy, appetite and concentration are good. We did attempt a conference phone call to his father Hieu but he did not leaf size picker. Mental Status Exam: General Appearance: Patient appears to be stated age is alert, directable, and cooperative. Behavior: Patient is calmly seated without any agitated behavior. Speech: Patient's speech is fluent and nonpressured. Mood/Affect: Mood is improving mildly, affect is congruent and constricted. Suicidality/Homicidality: Patient denies having any suicidal or homicidal ideation intent or plan. Perceptions: Patient denies any visual hallucinations and denies any auditory hallucinations Though content/process: There is no evidence of any delusional thought content and thought process is linear and goal-directed. Memory and concentration: AOX3, grossly intact for the purposes of this session Judgment and insight: Improving mildly Diagnosis: Adjustment disorder with conduct Bipolar disorder type I most recent episode depressed Assessment: The patient remains stable at this time it is felt that he is getting ready for discharge. There is no side effects with the medications. He is able to voice a safety plan including 911 and [phone]. Possible discharge tomorrow. Plan: -Patient continues to meet criteria for inpatient psychiatric admission for symptom stabilization and safety. Patient has signed adult voluntary form and medication consent and was placed in patient's chart. -Medications: Continue Abilify 30 mg take 1 tablet by mouth once daily bipolar disorder Lamotrigine 25 mg take 1 tablet by mouth once daily for mood Gabapentin 300 mg take 1 tablet by mouth 3 times daily for anxiety -When necessary Ativan and Haldol for agitation/aggression. -NRT -nicotine patch -SW on board for discharge planning. Encouraged the patient to participate in milieu.
[2024-08-13 10:00] VITALS: BP 122/84; PULSE 105; RESP 16; TEMP 97.6
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
[2024-08-17] MEDS ORDERED: FLUCONAZOLE 200 MG PO SCH (09:00)
== END 2024-08-13 13:15 | disposition home or self-care (01) | DRG 885 ==
LOC: EC 21:51 → 3MHU 08-10 00:15
PROVIDERS: ADMIT Psychiatry & Neurology Psychiatry; ATTEND Psychiatry & Neurology Psychiatry
DX: F31.9 Bipolar disorder, unspecified (principal); R45.851 Suicidal ideations; F43.24 Adjustment disorder with disturbance of conduct; F43.10 Post-traumatic stress disorder, unspecified; F42.9 Obsessive-compulsive disorder, unspecified; F41.9 Anxiety disorder, unspecified; F17.200 Nicotine dependence, unspecified, uncomplicated; Z88.8 Allergy status to other drugs, medicaments and biological substances; Z91.51 Personal history of suicidal behavior; Z87.440 Personal history of urinary (tract) infections; Z81.8 Family history of other mental and behavioral disorders; Z79.899 Other long term (current) drug therapy; Z56.0 Unemployment, unspecified; M54.32 Sciatica, left side; Z11.52 Encounter for screening for COVID-19
CPT/HCPCS: 80053; 80306; 81001; 82075; 83036; 84443; 85025; 87635; 99285

== ENCOUNTER 2024-08-14 11:37 | Observation (INO) | payer MEDICARE ==
[2024-08-14] MEDS: SODIUM CHLORIDE 0.9% 1,000 ML IV STA (11:43)
[2024-08-14] MEDS: HEPARIN SODIUM 1,000 UN/ML (10ML VL) IV ONE (11:53)
[2024-08-14] MEDS: ATORVASTATIN 40 MG TAB PO STA (11:53)
[2024-08-14] MEDS: ATORVASTATIN 80 MG TAB PO STA (11:54)
[2024-08-14] MEDS: HEPARIN SODIUM 1,000 UN/ML (10ML VL) IVP ONE (11:54)
[2024-08-14] MEDS ORDERED: NALOXONE 0.4 MG/ML 1 ML VIAL IV PRN (12:01)
--- NOTE | 2024-08-14 12:08 | XR ---
EXAMINATION TYPE: XR chest 1V portable DATE OF EXAM: 08/14/2024 12:03 PM COMPARISON: 10/20/2023 CLINICAL INDICATION: Male, 44 years old with history of chest pain, TECHNIQUE: XR chest 1V portable view(s) obtained. FINDINGS: The heart size is normal. The pulmonary vasculature is normal. The lungs are clear. There is elevation of the right diaphragm. IMPRESSION: 1. No acute pulmonary process. [facility], , 08/14/2024 12:06 PM
[2024-08-14] MEDS: SODIUM CHLORIDE 0.9% 1,000 ML IV ONE (12:09)
--- NOTE | 2024-08-14 12:16 | P.CRDCN ---
History of Present Illness History of present illness: HISTORY OF PRESENT ILLNESS: This is a 44-year-old male with a past medical history significant for bipolar disorder, anxiety, depression, PTSD, marijuana use, obstructive sleep apnea with no CPAP, and morbid obesity. Patient does not follow with a editor sound. We have been asked to see the patient in consultation for STEMI. Patient examined at the bedside in the emergency room. It is noted that the patient was just discharged from the mental health unit yesterday for bipolar disorder and suicidal ideation. Patient states that today he had a friend come over to his house that he met while he was hospitalized inpatient psych unit. He states they were just " hanging out". He reports that he was feeling dizzy and lightheaded. He also reports that he was feeling very diaphoretic. He denied having any chest pain or shortness of breath at that time. He does report that he fell. He reports that he was having a jerking movement of all his extremities. He denies any history of seizures. He denied losing control of his bowels or bladder. He denies losing consciousness. He states that afterwards he felt like his " heart was not beating" and he thought his heart rate was slow. He states after that he started to have a little bit of chest discomfort and was then brought to the ER for further evaluation. At the time of examination the patient denies any chest pain or pressure. He denies any shortness of breath. Vital signs are stable. DIAGNOSTICS: - EKG reveals sinus mechanism with ST elevation in inferior leads and lateral leads, likely early repolarization. - Current home cardiac medications include none - Most recent echocardiogram obtained in January 2021 revealed ejection fraction 60 to 65% - Cardiac catheterization history: May 2017 revealing normal coronary arteries - Patient underwent stress testing in January 2021 revealing normal EKG and ech o response to exercise without evidence of inducible ischemia, fair exercise capacity, suboptimal stress test given inability to reach 85% maximum predicted heart rate however at level of exercise no inducible ischemia noted. REVIEW OF SYSTEMS: At the time of my exam: CONSTITUTIONAL: Denies fever or chills. HEENT: Denies blurred vision, vision changes, or eye pain. Denies hemoptysis CARDIOVASCULAR: Denies chest pain. Denies orthopnea. Denies PND. Denies palpitations RESPIRATORY: Denies shortness of breath. GASTROINTESTINAL: Denies abdominal pain. Denies nausea or vomiting. HEMATOLOGIC: Denies bleeding disorders. GENITOURINARY: Denies any blood in urine. SKIN: Denies pruitis. Denies rash. PHYSICAL EXAM: VITAL SIGNS: Reviewed. GENERAL: Well-developed in no acute distress. HEENT: Head is normocephalic. Pupils are equal, round. Sclerae anicteric. Mucous membranes of the mouth are moist. Neck supple. No JVD or thyromegaly LUNGS: Respirations even and unlabored. Lungs essentially clear to auscultation bilaterally. HEART: Regular rate and rhythm. S1 and S2 heard. ABDOMEN: Soft. Nondistended. Nontender. EXTREMITIES: Normal range of motion. No clubbing or cyanosis. Peripheral pu lses intact. No lower extremity edema NEUROLOGIC: Awake and alert. Oriented x 3. ASSESSMENT: Abnormal EKG; likely early repolarization, however more prominent in inferior leads, cannot rule out STEMI Normal coronary arteries, per cath in 2018 History of obstructive sleep apnea without home CPAP use Marijuana use Bipolar disorder Anxiety Depression History of PTSD Morbid obesity: BMI 36.9 PLAN: EKG reviewed revealing likely early repolarization and appears essentially unchanged from previous EKGs. However, due to more prominent elevation in inferior leads, patient will undergo cardiac cath today with Dr. Ramon Further recommendations pending patient course Nurse practitioner note has been reviewed by physician. Signing provider agrees with the documented findings, assessment, and plan of care documented by FLUMER as a scribe. Past Medical History Past Medical History: Chest Pain / Angina, COPD, Myocardial Infarction ([place]), Sleep Apnea/CPAP/BIPAP Additional Past Medical History / Comment(s): Sleep apnea- no cpap used, chronic pain Last Myocardial Infarction Date:: May 2017 History of Any Multi-Drug Resistant Organisms: None Reported Past Surgical History: Heart Catheterization, Heart Catheterization With Stent, Hernia Repair Past Anesthesia/Blood Transfusion Reactions: No Reported Reaction Additional Past Anesthesia/Blood Transfusion Reaction / Comment(s): pt states he has never had a blood transfusion or anesthesia Past Psychological History: Anxiety, Bipolar, Depression, PTSD Smoking Status: Former smoker Past Alcohol Use History: None Reported Past Drug Use History: None Reported, Marijuana - Past Family History Father Family Medical History: No Reported History Medications and Allergies Home Medications Medication Instructions Recorded Confirmed Type ARIPiprazole [Abilify] 30 mg PO DAILY 30 Days tab 08/13/24 Rx Gabapentin [Neurontin] 300 mg PO TID 30 Days cap 08/13/24 Rx lamoTRIgine [LaMICtal] 25 mg PO DAILY 30 Days tab 08/13/24 Rx Allergies Allergy/AdvReac Type Severity Reaction Status Date / Time quetiapine [From Seroquel] Allergy Unknown Verified 08/14/24 11:43 Physical Exam Vitals: Vital Signs Temp Pulse BP Pulse Ox 08/14/24 11:38 97.5 F L 87 127/84 95 Intake and Output 08/13/24 08/14/24 08/14/24 22:59 06:59 14:59 Other: Weight 127.006 kg Results Current Medications Generic Name Dose Route Start Last Admin Trade Name Freq PRN Reason Stop Dose Admin Sodium Chloride 1,000 mls @ 999 mls/hr 08/14/24 11:43 08/14/24 11:43 Saline 0.9% IV 08/14/24 12:43 999 mls/hr .Q1H1M STA Administration Naloxone HCl 0.2 mg 08/14/24 12:01 Naloxone 0.4 Mg/Ml 1 Ml Vial IV Q2M PRN Opioid Reversal Intake and Output 08/13/24 08/14/24 08/14/24 22:59 06:59 14:59 Other: Weight 127.006 kg Patient Weight 08/15/24 06:59 Weight 127.006 kg
[2024-08-14] MEDS: MIDAZOLAM 2 MG/2 ML VIAL IVP ONE (12:20)
[2024-08-14] MEDS: LIDOCAINE 1% INJ 10MG/ML (30 ML VIAL-PF) SQ ONE (12:20)
[2024-08-14] MEDS: VERAPAMIL SYRINGE (5 MG/10 ML) INTRAARTER ONE (12:24)
[2024-08-14] MEDS: HYDROmorphone 0.5 MG/0.5 ML SYRINGE IVP ONE ×2 (12:24→12:36)
[2024-08-14 12:25] LABS: Basophils # (A) 0.04 10*3/uL (0.00-0.10); Basophils % (A) 0.4 %; Eosinophils # (A) 0.12 10*3/uL (0.04-0.35); Eosinophils % (A) 1.3 %; HCT 45.9 % (39.6-50.0); Lymphocytes # (A) 3.95 10*3/uL (0.90-5.00); Lymphocytes % (A) 41.3 %; MCH 29.2 pg (27.0-32.0); MCHC 34.9 g/dL (32.0-37.0); MCV 83.8 fL (80.0-97.0); Mean Platelet Volume 9.3 fL (9.5-12.2); Monocytes % (A) 8.4 %; Neutrophils # (A) 4.62 10*3/uL (1.80-7.70); Neutrophils % (A) 48.2 %; Platelet Count 288 10*3/uL (140-440); RBC 5.48 10*6/uL (4.40-5.60); RDW 13.5 % (11.5-14.5); WBC 9.57 10*3/uL (4.50-10.00)
[2024-08-14 12:29] LABS: ALT 33 U/L (4-49); AST 32 U/L (17-59); African American GFR (CKD) >90 (>60 ml/min/1.73 sqM); Albumin 3.8 g/dL (3.5-5.0); Alkaline Phosphatase 135 U/L (38-126); Anion Gap 7 mmol/L; Blood Urea Nitrogen 13 mg/dL (9-20); Calcium 8.8 mg/dL (8.4-10.2); Carbon Dioxide 24 mmol/L (22-30); Chloride 109 mmol/L (98-107); Glucose 140 mg/dL (74-99); Non-African American GFR(CKD) >90 (>60 ml/min/1.73 sqM); Potassium 4.2 mmol/L (3.5-5.1); Sodium 140 mmol/L (137-145); Total Bilirubin 0.5 mg/dL (0.2-1.3); Total Protein 6.4 g/dL (6.3-8.2)
[2024-08-14] MEDS: METOPROLOL TARTRATE 5 MG/5 ML VIAL IVP ONE (12:29)
--- NOTE | 2024-08-14 12:36 | ED ---
General Adult HPI - General Chief complaint: Chest Pain Stated complaint: STEMI Time Seen by Provider: 08/14/24 11:43 Source: patient, EMS, RN notes reviewed, old records reviewed Mode of arrival: EMS - History of Present Illness Initial comments: Patient is a 44-year-old male presents emergency department chest pain. Was made an out of hospital STEMI activation. Patient states he has a history of a cardiac stent with no documentation here. We do have a history of a cardiac cath in 2018. Presenting for chest pain. States that started at 9:30 AM this morning. Had chest pain throughout the ride here. EKG shows concerning findings for inferior [place] with some reciprocal ST segment depressions on aVF which is why he has made an out of hospital activation. Endorses some diaphoresis with it. Mild nausea earlier. May have had a syncopal episode or a fall earlier as well the patient is a poor historian regarding this. He denies any current nausea. States this chest pain is improving. Denies any shortness of breath. Presents for further evaluation at this time. - Related Data Previous Rx's Medication Instructions Recorded ARIPiprazole [Abilify] 30 mg PO DAILY 30 Days tab 08/13/24 Gabapentin [Neurontin] 300 mg PO TID 30 Days cap 08/13/24 lamoTRIgine [LaMICtal] 25 mg PO DAILY 30 Days tab 08/13/24 Allergies Allergy/AdvReac Type Severity Reaction Status Date / Time quetiapine [From Seroquel] Allergy Unknown Verified 08/14/24 14:30 Review of Systems ROS Statement: Those systems with pertinent positive or pertinent negative responses have been documented in the HPI. Review of Systems: CONST: Denies fever EYES: Denies blurry vision ENT: Denies nasal congestion C/V: Endorses chest pain RESP: Denies shortness of breath GI: Denies abdominal pain : Denies dysuria SKIN: Denies rash. MSK: Denies joint pain. NEURO: Denies headache ROS Other: All systems not noted in ROS Statement are negative. Past Medical History Past Medical History: Chest Pain / Angina, COPD, Myocardial Infarction ([place]), Sleep Apnea/CPAP/BIPAP Additional Past Medical History / Comment(s): Sleep apnea- no cpap used, chronic pain Last Myocardial Infarction Date:: May 2017 History of Any Multi-Drug Resistant Organisms: None Reported Past Surgical History: Heart Catheterization, Heart Catheterization With Stent, Hernia Repair Past Anesthesia/Blood Transfusion Reactions: No Reported Reaction Additional Past Anesthesia/Blood Transfusion Reaction / Comment(s): pt states he has never had a blood transfusion or anesthesia Past Psychological History: Anxiety, Bipolar, Depression, PTSD Smoking Status: Former smoker Past Alcohol Use History: None Reported Past Drug Use History: None Reported, Marijuana - Past Family History Father Family Medical History: No Reported History General Exam - General Exam Comments Initial Comments: General: Appears in mild distress secondary to chest discomfort. HEAD: Normal with no signs of head trauma. EYES: EOMI ENT: Hearing grossly intact, normal oropharynx. RESPIRATORY: Clear breath sounds bilaterally. No wheezes, rales, or rhonchi. C/V: Regular rate and rhythm. S1 and S2 auscultated, no edema, peripheral pulses 2+ and intact throughout ABD: Abd is soft, nontender, nondistended EXT: Normal range of motion, no obvious deformity SKIN: No rashes or lesions observed on exposed skin. NEURO: Alert and orient x 4. Course Vital Signs 08/14/24 11:38 Temperature 97.5 F L Pulse Rate 87 Blood Pressure 127/84 O2 Sat by Pulse 95 Oximetry Procedures - [place] Protocol (Time Out) Patient Identification (2 identifiers required): Chart, Verbal, Arm Band, Name, Birthdate, Medical Record Number Patient/Legal Trolley Operator has Confirmed: Identity, Procedure, Consent Site Marked: Not Applicable Medical Decision Making - Medical Decision Making Was pt. sent in by a medical professional or institution (CARLOS Mcmillan, CONCIERGE MANAGER, urgent care, hospital, or usp...) When possible be specific @ -No Did you speak to anyone other than the patient for history (EMS, parent, family, police, friend...)? What history was obtained from this source @ -No Did you review nursing and triage notes (agree or disagree)? Why? @ -I reviewed and agree with nursing and triage notes Were old charts reviewed (outside hosp., previous admission, EMS record, old EKG, old radiological studies, urgent care reports/EKG's, usp records)? Report findings @ -Old charts reviewed including cath report from 2017 which does not show cardiac stent placed. Patient also had a workup in 2020 which was unremarkable. Most recent EKG was from November [address] segment elevation findings however seem a little bit more prominent today with some lateral involvement as well. Differential Diagnosis (chest pain, altered mental status, abdominal pain women, abdominal pain men, vaginal bleeding, weakness, fever, dyspnea, syncope, headache, dizziness, GI bleed, back pain, seizure, CVA, palpatations, mental health, musculoskeletal)? @ -Differential Chest Pain: Stable Angina, Unstable Angina, STEMI, NSTEMI Aortic Dissection, Pneumothorax, Musculoskeletal, Esophageal Spasm GERD, Cholecystitis, Pancreatitis, Zoster, this is not meant to be an all-inclusive list. EKG interpreted by me (3pts min.). @ -As above X-rays interpreted by me (1pt min.). @ -Chest x-ray reveals no obvious acute cardiopulmonary process. CT interpreted by me (1pt min.). @ -None done U/S interpreted by me (1pt. min.). @ -None done What testing was considered but not performed or refused? (CT, X-rays, U/S, labs)? Why? @ -None What meds were considered but not given or refused? Why? @ -None Did you discuss the management of the patient with other professionals (professionals i.e. DrLesli, PA, CONCIERGE MANAGER, lab, RT, psych nurse, social media content manager, multifocal button inspector, teacher, weapons electrical engineering officer, machine adjuster leader case trim)? Give summary @ -Patient was made a STEMI activation out of hospital based on EKG and story. However upon arrival, when compared to prior EKGs, does seem that the EKG is similar to previous with most recent from 2023. Cardiology was notified and I spoke with midlevel provider Tania who presented at bedside to evaluate the patient. We initially spoke with Dr. Ramon of cardiology who wanted to come down and evaluate the patient himself as well as EKG as the findings on EKG are somewhat slightly worsening of chronic findings. Determination was take the patient to [facility]. Was smoking cessation discussed for >3mins.? @ -No Was critical care preformed (if so, how long)? @ -Yes, 15 minutes Were there social determinants of health that impacted care today? How? (Homelessness, low income, unemployed, alcoholism, drug addiction, transportation, low edu. Level, literacy, decrease access to med. care, longterm, rehab)? @ -No Was there de-escalation of care discussed even if they declined (Discuss DNR or withdrawal of care, Hospice)? DNR status @ -No What co-morbidities impacted this encounter? (DM, HTN, Smoking, COPD, CAD, Cancer, CVA, ARF, Chemo, Hep., AIDS, mental health diagnosis, sleep apnea, morbid obesity)? @ -Hypertension Was patient admitted / discharged? Hospital course, mention meds given and route, prescriptions, significant lab abnormalities, going to OR and other pertinent info. @ -Patient presents as a possible STEMI. Activated out of hospital for EKG changes as well as chest pain. Upon presentation, question whether EKG changes are just slightly worse from chronic findings. Cardiology did present bedside, both Tania as well as Dr. Ramon and determination was made to take the patient to [facility]. Patient received aspirin prior to arrival. Chest x-ray unrem arkable. Patient given Lipitor as well as heparin. Patient admitted with disposition to [facility]. I notified the admitting provider, Dr. Peters who accepted the admission. Patient's labs returned remarkable for an undetectable troponin as well as remainder of the labs remaining unremarkable after patient went to [facility]. Undiagnosed new problem with uncertain prognosis? @ -No Drug Therapy requiring intensive monitoring for toxicity (Heparin, Nitro, Insulin, Cardizem)? @ -No Were any procedures done? @ -No Diagnosis/symptom? @ -STEMI Acute, or Chronic, or Acute on Chronic? @ -Acute Uncomplicated (without systemic symptoms) or Complicated (systemic symptoms)? @ -Complicated Side effects of treatment? @ -No Exacerbation, Progression, or Severe Exacerbation? @ -No Poses a threat to life or bodily function? How? (Chest pain, [place], [place], pneumonia, PE, COPD, DKA, ARF, appy, cholecystitis, CVA, Diverticulitis, Homicidal, Suicidal, threat to staff... and all critical care pts) @ -Yes - Lab Data Result diagrams: 08/14/24 11:46 08/14/24 11:46 Lab Results 08/14/24 08/14/24 08/14/24 Range/Units 11:46 11:46 11:46 WBC 9.57 (4.50-10.00) 10*3/uL RBC 5.48 (4.40-5.60) 10*6/uL Hgb 16.0 (13.0-17.0) g/dL Hct 45.9 (39.6-50.0) % MCV 83.8 (80.0-97.0) fL MCH 29.2 (27.0-32.0) pg MCHC 34.9 (32.0-37.0) g/dL Plt Count 288 (140-440) 10*3/uL MPV 9.3 L (9.5-12.2) fL Immature Gran % (Auto) 0.4 % Neutrophils % 48.2 % Lymphocytes % 41.3 % Monocytes % 8.4 % Eosinophils % 1.3 % Basophils % 0.4 % Immature Gran # 0.04 (0.00-0.04) 10*3/uL Neutrophils # 4.62 (1.80-7.70) 10*3/uL Lymphocytes # 3.95 (0.90-5.00) 10*3/uL Monocytes # 0.80 (0.20-1.00) 10*3/uL Eosinophils # 0.12 (0.04-0.35) 10*3/uL Basophils # 0.04 (0.00-0.10) 10*3/uL PT 9.9 L (10.0-12.5) sec INR 0.9 (<1.2) APTT 22.6 (22.0-30.0) sec Sodium 140 (137-145) mmol/L Potassium 4.2 (3.5-5.1) mmol/L Chloride 109 H (98-107) mmol/L Carbon Dioxide 24 (22-30) mmol/L Anion Gap 7 mmol/L BUN 13 (9-20) mg/dL Creatinine 0.89 (0.66-1.25) mg/dL Est GFR (CKD-EPI)AfAm >90 (>60 ml/min/1.73 sqM) Est GFR (CKD-EPI)NonAf >90 (>60 ml/min/1.73 sqM) Glucose 140 H (74-99) mg/dL Calcium 8.8 (8.4-10.2) mg/dL Magnesium 2.0 (1.6-2.3) mg/dL Total Bilirubin 0.5 (0.2-1.3) mg/dL AST 32 (17-59) U/L ALT 33 (4-49) U/L Alkaline Phosphatase 135 H (38-126) U/L Troponin I (0.000-0.034) ng/mL NT-Pro-B Natriuret Pep pg/mL Total Protein 6.4 (6.3-8.2) g/dL Albumin 3.8 (3.5-5.0) g/dL 08/14/24 08/14/24 Range/Units 11:46 11:48 WBC (4.50-10.00) 10*3/uL RBC (4.40-5.60) 10*6/uL Hgb (13.0-17.0) g/dL Hct (39.6-50.0) % MCV (80.0-97.0) fL MCH (27.0-32.0) pg MCHC (32.0-37.0) g/dL Plt Count (140-440) 10*3/uL MPV (9.5-12.2) fL Immature Gran % (Auto) % Neutrophils % % Lymphocytes % % Monocytes % % Eosinophils % % Basophils % % Immature Gran # (0.00-0.04) 10*3/uL Neutrophils # (1.80-7.70) 10*3/uL Lymphocytes # (0.90-5.00) 10*3/uL Monocytes # (0.20-1.00) 10*3/uL Eosinophils # (0.04-0.35) 10*3/uL Basophils # (0.00-0.10) 10*3/uL PT (10.0-12.5) sec INR (<1.2) APTT (22.0-30.0) sec Sodium (137-145) mmol/L Potassium (3.5-5.1) mmol/L Chloride (98-107) mmol/L Carbon Dioxide (22-30) mmol/L Anion Gap mmol/L BUN (9-20) mg/dL Creatinine (0.66-1.25) mg/dL Est GFR (CKD-EPI)AfAm (>60 ml/min/1.73 sqM) Est GFR (CKD-EPI)NonAf (>60 ml/min/1.73 sqM) Glucose (74-99) mg/dL Calcium (8.4-10.2) mg/dL Magnesium (1.6-2.3) mg/dL Total Bilirubin (0.2-1.3) mg/dL AST (17-59) U/L ALT (4-49) U/L Alkaline Phosphatase (38-126) U/L Troponin I <0.012 (0.000-0.034) ng/mL NT-Pro-B Natriuret Pep <20 pg/mL Total Protein (6.3-8.2) g/dL Albumin (3.5-5.0) g/dL - EKG Data -: EKG Interpreted by Me EKG Comments: 12-lead Electrocardiogram Interpretation Note EKG was reviewed and interpreted by myself. 12-lead ECG performed at 1142 is interpreted by me as revealing normal sinus rhythm at a rate of 83 beats per minute. Deshler is normal. AL interval is 170 ms, QRS duration is 97 ms, QTc is 387 ms.. Patient does have ST segment elevations in leads II, 3, aVF that are m ore prominent but patient also has some mild elevations in what appears to be V5 and V6. Reciprocal mild ST segment depression in aVR. This does seem similar to prior EKGs from 2023. This is possible STEMI versus early repolarization.... Critical Care Time Critical Care Time: Yes Total Critical Care Time: 15 Disposition Clinical Impression: STEMI (ST elevation myocardial infarction) Disposition: ADMITTED IP TO THIS HOSP Condition: Stable Is patient prescribed a controlled substance at d/c from ED?: No Time of Disposition: 12:05
[2024-08-14] MEDS: IOPAMIDOL-300 100ML BTL INJ ONE (12:41)
[2024-08-14] MEDS: niCARdipine Syringe (1,000 mcg/10 mL) INTRACORON ONE (12:41)
[2024-08-14 12:44] LABS: INR 0.9 (<1.2); Prothrombin Time 9.9 sec (10.0-12.5)
--- NOTE | 2024-08-14 12:53 | P.CARDCATH ---
Date of Procedure: 08/14/24 Description of Procedure: History: Patient was referred for cardiac catheterization to evaluate for CAD. This patient was seen by me in the emergency room. He presented after having felt dizzy lightheaded and he fell and upon arrival also complained of chest pain and had ST elevation which looked initially like early repolarization but there was more focal inferior ST elevation and therefore he was advised coronary angiogram after due discussion regarding risk benefits and options. He has an underlying psychiatric problem including bipolar disorder. I explained to him the risk benefits options and he agreed and we we proceeded to the [facility] Procedure Details: The risks, benefits, complications, treatment options, and expected outcomes were discussed with the patient. The patient and/or family concurred with the proposed plan, giving informed consent. Patient was brought to the [facility] conservation lab[facility] af ter IV hydration was begun and oral premedication was given. Patient was further sedated with midazolam. Patient was prepped and draped in the usual manner. Under strict aseptic precautions and local anesthesia a 6 Azeri introducer was placed in the right radial artery. Using a JL 3/5 and a JR 4/0 catheters I performed coronary angiography and the same JR catheter was used to check LV pressures and LV gram was not performed. After the procedure was completed the sheaths and catheters were all removed. Hemostasis was achieved with TR band. Saturation in the fingers of the right hand was about 98%. Moderate conscious sedation time was 25 minutes. Patient's oxygen saturation hemodynamics and EKG were monitored closely. Findings: Hemodynamics: Left ventricle end-diastolic pressure was about 14 mmHg no gradient across aortic valve Left Main: Short patent vessel no significant disease bifurcates into LAD and circumflex LAD: Large-caliber large distribution vessel flow was initially sluggish after giving nicardipine the flow improved no significant disease gives off septal and diagonal branches minor irregularities no significant disease large-caliber large distribution vessel CIRC: Nondominant vessel large caliber large distribution runs distally and supplies a fair amount of myocardium there is a small sized AV groove branch as well. No significant disease in the nondominant circumflex RCA: Very dominant vessel minor irregularities no significant disease, distally bifurcates into 2 small branches in the PDA and PLV distribution these branches are relatively smaller but no significant disease LV: LV gram was not performed Closure Device: TR band Complications: None Estimated Blood Loss: Minimal Impression: Slightly elevated filling pressures no gradient right dominant system no significant obstructive disease somewhat sluggish flow in the LAD improved with nicardipine. No significant obstructive CAD. Pre Procedure Diagnosis: CAD probable inferior ST elevation IA Final Post Procedure Diagnosis: Noncritical CAD rule out cardiomyopathy Recommendation: Continued medical therapy with risk factor modifications echocardiogram to be performed today. Complications: None; patient tolerated the procedure well. Disposition: Pacu - hemodynamically stable. Condition: Stable Discharge Disposition: Discharge patient in 24 hours.
[2024-08-14 13:10] LABS: Partial Thromboplastin Time 22.6 sec (22.0-30.0)
[2024-08-14 16:02] LABS: Appearance,Urine Clear (Clear); Bilirubin,Urine Negative (Negative); Blood,Urine Negative (Negative); Color,Urine Light Yellow; Glucose,Urine (UA) Negative (Negative); Ketones,Urine Negative (Negative); Leukocyte Esterase,Urine Negative (Negative); Nitrite,Urine Negative (Negative); Protein,Urine Negative (Negative); Specific Gravity,Urine 1.045 (1.001-1.035); Urobilinogen,Urine <2.0 mg/dL (<2.0)
[2024-08-14 16:21] LABS: Amphetamine Screen,Urine Not Detected (NotDetected); Barbiturate Screen,Urine Not Detected (NotDetected); Benzodiazepines Screen,Urine Detected (NotDetected); Cocaine Screen,Urine Not Detected (NotDetected); Methadone Screen, Urine Not Detected (NotDetected); Opiate Screen,Urine Detected (NotDetected); Oxycodone Screen, Urine Not Detected (NotDetected); Phencyclidine Screen,Urine Not Detected (NotDetected); Tricyclic Antidepressant,Urine Detected (NotDetected); Urn Cannabinoid Scrn Detected (NotDetected)
[2024-08-14] MEDS: GABAPENTIN 300 MG CAP PO SCH (16:50)
--- NOTE | 2024-08-14 18:11 | CA ---
Transthoracic Echo Report Name: Kingsley Grace Age: 44 Gender: M : 1980 Exam Date: 08/14/2024 13:50 Exam Location: [facility] Ht (in): 73 Wt (lb): 280 Ordering Physician: Talita Ramon MD ([id number]) Attending/Referring Phys: Grain Blender Elizabeth Bonds RDCS Procedure CPT: Indications: LV function and wall motion Cardiac Hx: Technical Quality: Fair Contrast 1: Definity Total Dose (mL): 2 Contrast 2: Total Dose (mL): MEASUREMENTS (Male / Female) Normal Values 2D ECHO LV Diastolic Diameter PLAX 6.1 cm 4.2 - 5.9 / 3.9 - 5.3 cm LV Systolic Diameter PLAX 4.6 cm IVS Diastolic Thickness 1.1 cm 0.6 - 1.0 / 0.6 - 0.9 cm LVPW Diastolic Thickness 1.2 cm 0.6 - 1.0 / 0.6 - 0.9 cm LV Relative Wall Thickness 0.4 RV Internal Dim ED PLAX 1.8 cm LA Systolic Diameter LX 3.6 cm 3.0 - 4.0 / 2.7 - 3.8 cm M-MODE Aortic Root Diameter MM 3.2 cm LA Systolic Diameter MM 3.9 cm LA Ao Ratio MM 1.2 AV Cusp Separation MM 2.5 cm DOPPLER MV Area PHT 3.7 cm??? Mitral E Point Velocity 65.7 cm/s Mitral A Point Velocity 61.4 cm/s Mitral E to A Ratio 1.1 MV Deceleration Time 206.5 ms TR Peak Velocity 191.6 cm/s TR Peak Gradient 14.7 mmHg FINDINGS Left Ventricle Left ventricular ejection fraction is estimated at 45-50 %. Dilated left ventricle. Global hypokinesis is more noted in the anteroapical septal wall Right Ventricle Moderate right ventricular dilatation. Generalized right ventricular hypokinesis. Right ventricular systolic pressure within normal limits. Right Atrium Normal right atrial size. Left Atrium Normal left atrial size. Mitral Valve Structurally normal mitral valve. Mild mitral regurgitation. No mitral stenosis. Aortic Valve Trileaflet aortic valve. No aortic stenosis. No aortic regurgitation. Tricuspid Valve Structurally normal tricuspid valve. Mild tricuspid regurgitation. No tricuspid stenosis. Pulmonic Valve Pulmonic valve not well visualized. Pericardium No pericardial or pleural effusion. Echo free space anterior to the right ventricle likely represents a fat pad. Aorta Normal size aortic root and proximal ascending aorta. CONCLUSIONS Technically difficult study. Definity ECHO contrast used for improved visualization of the endocardial borders (inadequate visualization of two or more contiguous segments). Mildly impaired left ventricular systolic function Limited Doppler study with mild mitral and tricuspid regurgitation Previewed by: Dr. Maine Zarate MD (Electronically Signed) Final Date: 14 August 2024 18:10
[2024-08-14] MEDS: METOPROLOL TARTRATE 25 MG TAB PO SCH (21:08)
[2024-08-14] MEDS: HEPARIN SODIUM,PORCINE 5,000 UNIT/ML 1 ML VIAL SQ SCH (21:08)
--- NOTE | 2024-08-14 22:47 | HP ---
HISTORY AND PHYSICAL CHIEF COMPLAINT: Chest pain. HISTORY OF PRESENT ILLNESS: This gentleman presented to the emergency room as an acute STEMI. He was worked up and sent immediately to the [facility]. He had acute onset of chest pain with some diaphoresis. REVIEW OF SYSTEMS: Otherwise unremarkable. Past medical history, family history and personal and social histories reveal that he is on Abilify, imipramine, and buspirone. He is allergic to Seroquel. He does smoke. PHYSICAL EXAMINATION: VITAL SIGNS: Blood pressure is 104/80 with a pulse 74. HEAD, EARS, EYES, NOSE, MOUTH AND THROAT: Normal. CHEST: Clear. CARDIAC: Unremarkable. ABDOMEN: Soft, nontender. EXTREMITIES: Normal. IMPRESSION: 1. Acute coronary syndrome. 2. Bipolar disorder. 3. Nicotine abuse. PLAN: 1. Bedrest. 2. Cardiology consult. 3. Cardiac cath. MMNATI / NILSON: [id number] /
[2024-08-15 09:10] VITALS: RESP 18; TEMP 98
[2024-08-15] MEDS: ATORVASTATIN 20 MG TAB PO SCH (09:11)
[2024-08-15] MEDS: lamoTRIgine 25 MG TAB PO SCH (09:11)
[2024-08-15] MEDS: ASPIRIN 81 MG PO SCH (09:12)
[2024-08-15] MEDS: ARIPiprazole 15 MG TAB PO SCH (09:13)
--- NOTE | 2024-08-15 11:22 | P.PN ---
Subjective HISTORY OF PRESENT ILLNESS: This is a 44-year-old male with a past medical history significant for bipolar disorder, anxiety, depression, PTSD, marijuana use, obstructive sleep apnea with no CPAP, and morbid obesity. Patient does not follow with a core driller helper. We have been asked to see the patient in consultation for STEMI. Patient examined a t the bedside in the emergency room. It is noted that the patient was just discharged from the mental health unit yesterday for bipolar disorder and suicidal ideation. Patient states that today he had a friend come over to his house that he met while he was hospitalized inpatient psych unit. He states they were just " hanging out". He reports that he was feeling dizzy and lightheaded. He also reports that he was feeling very diaphoretic. He denied having any chest pain or shortness of breath at that time. He does report that he fell. He reports that he was having a jerking movement of all his extremities. He denies any history of seizures. He denied losing control of his bowels or bladder. He denies losing consciousness. He states that afterwards he felt like his " heart was not beating" and he thought his heart rate was slow. He states after that he started to have a little bit of chest discomfort and was then brought to the ER for further evaluation. At the time of examination the patient denies any chest pain or pressure. He denies any shortness of breath. Vital signs are stable. DIAGNOSTICS: - EKG reveals sinus mechanism with ST elevation in inferior leads and lateral leads, likely early repolarization. - Current home cardiac medications include none - Most recent echocardiogram obtained in January 2021 revealed ejection fraction 60 to 65% - Cardiac catheterization history: May 2017 revealing normal coronary arteries - Patient underwent stress testing in January 2021 revealing normal EKG and echo response to exercise without evidence of inducible ischemia, fair exercise capacity, suboptimal stress test given inability to reach 85% maximum predicted heart rate however at level of exercise no inducible ischemia noted. 08/15/2024 Patient is status post cardiac catheterization revealing normal coronary arteries. Patient examined this morning at the bedside. Patient without complaints of chest pain or shortness of breath. Vital signs are stable. PHYSICAL EXAM: VITAL SIGNS: Reviewed. GENERAL: Well-developed in no acute distress. HEENT: Head is normocephalic. Pupils are equal, round. Sclerae anicteric. Mucous membranes of the mouth are moist. Neck supple. No JVD or thyromegaly LUNGS: Respirations even and unlabored. Lungs essentially clear to auscultation bilaterally. HEART: Regular rate and rhythm. S1 and S2 heard. ABDOMEN: Soft. Nondistended. Nontender. EXTREMITIES: Normal range of motion. No clubbing or cyanosis. Peripheral pulse s intact. No lower extremity edema NEUROLOGIC: Awake and alert. Oriented x 3. ASSESSMENT: Early repolarization, normal variant on EKG, STEMI ruled out Normal coronary arteries, per cardiac catheterization History of obstructive sleep apnea without home CPAP use Marijuana use Bipolar disorder Anxiety Depression History of PTSD Morbid obesity: BMI 36.9 PLAN: STEMI ruled out Continue current cardiac medications Patient is stable for discharge home today from a cardiac standpoint We will sign off. Please reconsult if needed. Nurse practitioner note has been reviewed by physician. Signing provider agrees with the documented findings, assessment, and plan of care documented by TENTS ASSEMBLER as a scribe. Objective - Vital Signs Vital signs: Vital Signs Temp 98.0 F 08/15/24 09:10 Pulse 77 08/15/24 09:10 Resp 18 08/15/24 09:10 BP 109/75 08/15/24 09:10 Pulse Ox 99 08/15/24 09:10 FiO2 Intake & Output 08/14/24 08/15/24 08/15/24 18:59 06:59 18:59 Intake Total 1018 360 128 Output Total 525 700 Balance 493 -340 128 Weight 127.006 kg 127 kg Intake: IV 900 10 Invasive Line 1 5 Invasive Line 2 5 Oral 118 360 118 Output: Urine 525 700 Other: Voiding Method Toilet Urinal - Labs CBC & Chem 7: 08/14/24 11:46 08/14/24 11:46 Labs: Abnormal Lab Results - Last 24 Hours (Table) 08/14/24 08/14/24 08/14/24 Range/Units 11:46 11:46 11:46 MPV 9.3 L (9.5-12.2) fL PT 9.9 L (10.0-12.5) sec Chloride 109 H (98-107) mmol/L Glucose 140 H (74-99) mg/dL Alkaline Phosphatase 135 H (38-126) U/L Ur Specific [place] (1.001-1.035) Urine Opiates Screen (NotDetected) U Tricyclic Antidepress (NotDetected) U Benzodiazepines Scrn (NotDetected) U Marijuana (THC) Screen (NotDetected) 08/14/24 08/14/24 Range/Units 15:35 15:35 MPV (9.5-12.2) fL PT (10.0-12.5) sec Chloride (98-107) mmol/L Glucose (74-99) mg/dL Alkaline Phosphatase (38-126) U/L Ur Specific [place] 1.045 H (1.001-1.035) Urine Opiates Screen Detected H (NotDetected) U Tricyclic Antidepress Detected H (NotDetected) U Benzodiazepines Scrn Detected H (NotDetected) U Marijuana (THC) Screen Detected H (NotDetected)
[2024-08-15 11:25] VITALS: BP 127/84; PULSE 73
--- NOTE | 2024-08-16 19:52 | P.DS ---
Providers Date of admission: 08/14/24 12:01 Attending physician: Sawyer Peters Primary care physician: Sawyer Peters Hospital Course: Final Diagnosis Abnormal EKG; likely early repolarization, felt to be a normal variant on EKG and STEMI has been ruled out Normal coronary arteries per cardiac cath this admission and cath in 2018 Recent mental health admission for SI History of obstructive sleep apnea without home CPAP use Marijuana use Bipolar disorder Anxiety Depression History of PTSD Morbid obesity: BMI 36.9 Discharge Disposition Patient stable for discharge home. He has been started on aspirin 81 mg daily, atorvastatin 20 mg daily and metoprolol 25 mg twice daily. Follow up with cardiology in 1 to [address] Peters 1 to 2 days. Hospital Course This is a 44-year-old male with medical history significant for. Patient presented to the hospital on August 14 1142 secondary to complaints of chest pain which started in the morning at 9:30 AM. He reports that the chest pain was associated with diaphoresis and nausea. He also reports a possible syncopal episode earlier. EKG did show concern for STEMI and inferior SD. It is noted that the patient was just discharged from the mental health unit yesterday for bipolar disorder and suicidal ideation. He had been hanging out with his friend when he reported feeling dizzy and lightheaded and that he had jerking movements of his extremities felt his heart beating slow and had the chest discomfort. His UDS was positive for marijuana, benzodiazepines, TCAs and Opiates. Serum alcohol less than 10. Troponin negative. proBNP normal. D-Dimer 0.19. Echocardiogram reveals an EF 45-50%, mild MR and TR. Technically difficult study. Patient is status post cardiac catheterization revealing normal coronary arteries. He denies chest pain or shortness of breath. Has been up ambulating. No dizziness or lightheadedness reported. Lungs are clear. He will be discharged home. Please see medication reconciliation for a list of current medications. Thank you for allowing us to participate in the care of this patient. The impression and plan of care has been dictated by Kelly Graham, Nurse Practitioner as directed. Dr. Danielle MD I have performed a history and physical examination and medical decision making of this patient, discussed the same with the dictator, and agree with the dictators assessment and plan as written, documented as a scribe. Based on total visit time, I have performed more than 50% of this visit. Patient Condition at Discharge: Stable Plan - Discharge Summary New Discharge Prescriptions: New Aspirin 81 mg PO DAILY #30 tab Metoprolol Tartrate [Lopressor] 25 mg PO BID #60 tab Atorvastatin [Lipitor] 20 mg PO DAILY #30 tab Continue ARIPiprazole [Abilify] 30 mg PO DAILY 30 Days tab Gabapentin [Neurontin] 300 mg PO TID 30 Days cap lamoTRIgine [LaMICtal] 25 mg PO DAILY 30 Days tab Discharge Medication List ARIPiprazole [Abilify] 30 mg PO DAILY 30 Days tab 08/13/24 [Rx] Gabapentin [Neurontin] 300 mg PO TID 30 Days cap 08/13/24 [Rx] lamoTRIgine [LaMICtal] 25 mg PO DAILY 30 Days tab 08/13/24 [Rx] Aspirin 81 mg PO DAILY #30 tab 08/15/24 [Rx] Atorvastatin [Lipitor] 20 mg PO DAILY #30 tab 08/15/24 [Rx] Metoprolol Tartrate [Lopressor] 25 mg PO BID #60 tab 08/15/24 [Rx] Follow up Appointment(s)/Referral(s): Sawyer Peters MD [Primary Care Provider] - 1 Week (Please call to make a follow up appointment.) Talita Ramon MD [STAFF PHYSICIAN] - 1 Week Patient Instructions/Handouts: *[facility] - After Heart Catheterization - Digital Measurement Advisor Instructions, Chest Pain (DC) Discharge Disposition: HOME SELF-CARE
== END 2024-08-15 12:15 | disposition home or self-care (01) ==
LOC: EC 11:37 → INTOOBSV 12:01 → 2SICU 12:01 → 3SCARD 12:51
PROVIDERS: ADMIT Family Medicine; ATTEND Family Medicine
DX: R94.31 Abnormal electrocardiogram [ECG] [EKG] (principal); I25.10 Atherosclerotic heart disease of native coronary artery without angina pectoris; I25.2 Old myocardial infarction; J44.9 Chronic obstructive pulmonary disease, unspecified; G47.33 Obstructive sleep apnea (adult) (pediatric); E66.01 Morbid (severe) obesity due to excess calories; F31.9 Bipolar disorder, unspecified; F41.9 Anxiety disorder, unspecified; F43.10 Post-traumatic stress disorder, unspecified; Z68.36 Body mass index [BMI] 36.0-36.9, adult; Z79.899 Other long term (current) drug therapy; Z87.891 Personal history of nicotine dependence; Z95.5 Presence of coronary angioplasty implant and graft; Z88.8 Allergy status to other drugs, medicaments and biological substances
CPT/HCPCS: 96372 ×2; 96374; 99285; 93005; 93306; 93458; 85379; 83880; 80053; 83735; 84484; 85025; 85610; 85730; 81003; 80306; 80320; 71045; G0378 ×2; C1769; C1894; J2250; J1644 ×3; J2003; Q9957; J1171; Q9967

== ENCOUNTER 2024-08-31 19:13 | Emergency (ER) | payer MEDICARE, OTHER ==
[2024-08-31 19:31] VITALS: RESP 16
--- NOTE | 2024-08-31 19:45 | ED ---
General Adult HPI - General Chief complaint: Chest Pain Stated complaint: Chest pain Time Seen by Provider: 08/31/24 19:21 Source: patient, EMS Mode of arrival: EMS Limitations: no limitations - History of Present Illness Initial comments: Patient presents to the ED by ambulance for evaluation. Patient states that his friend called for an ambulance for himself, but when EMS arrived, he thought he should also be evaluated for chest pain that he has been having. Patient states that he has been having migratory chest pain that is sometimes in the left side of his chest and sometimes on the right side of his chest over the past 2 hours or so. Patient was just recently admitted to the hospital after having an abnormal EKG and reporting chest pain, and he had a cardiac angiogram performed 17 days ago, that showed " no significant obstructive CAD" (cardiac cath report was reviewed myself). Patient admits to having mild associated dyspnea. Patie nt denies trauma or injury, fever or chills, headache, focal neuro deficit, neck/arm/jaw/back pain, pleuritic pain, cough or cold symptoms, palpitations, dizziness, abdominal pain, nausea/vomiting, leg/calf swelling or pain, or any other symptoms or complaints. Patient was given aspirin by EMS. - Related Data Previous Rx's Medication Instructions Recorded ARIPiprazole [Abilify] 30 mg PO DAILY 30 Days tab 08/13/24 Gabapentin [Neurontin] 300 mg PO TID 30 Days cap 08/13/24 lamoTRIgine [LaMICtal] 25 mg PO DAILY 30 Days tab 08/13/24 Aspirin 81 mg PO DAILY #30 tab 08/15/24 Atorvastatin [Lipitor] 20 mg PO DAILY #30 tab 08/15/24 Metoprolol Tartrate [Lopressor] 25 mg PO BID #60 tab 08/15/24 Allergies Allergy/AdvReac Type Severity Reaction Status Date / Time quetiapine [From Seroquel] Allergy Unknown Verified 08/31/24 19:31 Review of Systems ROS Statement: Those systems with pertinent positive or pertinent negative responses have been documented in the HPI. ROS Other: All systems not noted in ROS Statement are negative. Past Medical History Past Medical History: Chest Pain / Angina, COPD, Myocardial Infarction (SD), Sleep Apnea/CPAP/BIPAP Additional Past Medical History / Comment(s): Sleep apnea- no cpap used, chronic pain Last Myocardial Infarction Date:: May 2017 History of Any Multi-Drug Resistant Organisms: None Reported Past Surgical History: Heart Catheterization, Heart Catheterization With Stent, Hernia Repair Past Anesthesia/Blood Transfusion Reactions: No Reported Reaction Additional Past Anesthesia/Blood Transfusion Reaction / Comment(s): pt states he has never had a blood transfusion or anesthesia Past Psychological History: Anxiety, Bipolar, Depression, PTSD Smoking Status: Former smoker Past Alcohol Use History: None Reported Past Drug Use History: None Reported, Marijuana - Past Family History Father Family Medical History: No Reported History General Exam Limitations: no limitations General appearance: alert, in no apparent distress Eye exam: Present: normal appearance ENT exam: Present: mucous membranes moist Neck exam: Present: other (Trachea is in midline) Respiratory exam: Present: normal lung sounds bilaterally. Absent: respiratory distress, wheezes, rales, rhonchi, stridor, chest wall tenderness Cardiovascular Exam: Present: regular rate, normal rhythm, normal heart sounds, other (Normal radial pulses bilaterally) GI/Abdominal exam: Present: soft. Absent: distended, tenderness, guarding Extremities exam: Present: other (Negative Homans' sign bilaterally). Absent: tenderness, pedal edema, calf tenderness Neurological exam: Present: alert, oriented X3. Absent: motor sensory deficit Skin exam: Present: warm, dry, normal color Course Vital Signs 08/31/24 19:17 Temperature 99.3 F Pulse Rate 77 Respiratory 16 Rate Blood Pressure 109/62 O2 Sat by Pulse 93 L Oximetry EKG Findings - EKG Comments: EKG Findings:: ED physician interpretation (interpreted by me): Normal sinus rhythm, ventricular rate of 75 bpm, no ectopy, normal [place] and QRS intervals, normal QT interval, normal axis, inferolateral ST elevations, suspect early repolarization abnormality, no significant change when compared to 08/14/2024 EKG Medical Decision Making - Medical Decision Making Was pt. sent in by a medical professional or institution (, PA, DRAMATIC ARTS HISTORIAN, urgent care, hospital, or alf...) When possible be specific @ -No Did you speak to anyone other than the patient for history (EMS, parent, family, police, friend...)? What history was obtained from this source @ -No Did you review nursing and triage notes (agree or disagree)? Why? @ -I reviewed and agree with nursing and triage notes Were old charts reviewed (outside hosp., previous admission, EMS record, old EKG, old radiological studies, urgent care reports/EKG's, alf records)? Report findings @ -No old charts were reviewed Differential Diagnosis (chest pain, altered mental status, abdominal pain women, abdominal pain men, vaginal bleeding, weakness, fever, dyspnea, syncope, headache, dizziness, GI bleed, back pain, seizure, CVA, palpatations, mental health, musculoskeletal)? @ -Not applicable EKG interpreted by me (3pts min.). @ -As above X-rays interpreted by me (1pt min.). @ -Chest x-ray was reviewed myself and shows no acute cardiopulmonary disease/process. I agree with the radiologist's interpretation as above. CT interpreted by me (1pt min.). @ -None done U/S interpreted by me (1pt. min.). @ -None done What testing was considered but not performed or refused? (CT, X-rays, U/S, labs)? Why? @ -None What meds were considered but not given or refused? Why? @ -None Did you discuss the management of the patient with other professionals (professionals i.e. , PA, DRAMATIC ARTS HISTORIAN, lab, RT, psych nurse, oncology social worker, automatic buffer, teacher, foreign policy officer, case checker)? Give summary @ -No Was smoking cessation discussed for >3mins.? @ -No Was critical care preformed (if so, how long)? @ -No Were there social determinants of health that impacted care today? How? (Homelessness, low income, unemployed, alcoholism, drug addiction, transportation, low edu. Level, literacy, decrease access to med. care, penitentiary, rehab)? @ -No Was there de-escalation of care discussed even if they declined (Discuss DNR or withdrawal of care, Hospice)? DNR status @ -No What co-morbidities impacted this encounter? (DM, HTN, Smoking, COPD, CAD, Cancer, CVA, ARF, Chemo, Hep., AIDS, mental health diagnosis, sleep apnea, morbid obesity)? @ -None Was patient admitted / discharged? Hospital course, mention meds given and route, prescriptions, significant lab abnormalities, going to OR and other pertinent info. @ -Patient's EKG shows findings suggestive of early repolarization abnormality and is unchanged when compared to EKG from 08/14/2024. Patient had a cardiac cath done at that time, which showed no significant obstructive CAD. Patient's chest x-ray and labs are fairly unremarkable. A 2-hour repeat cardiac troponin has been ordered. 2100- Patient was endorsed to oncoming ED physician (secondary to shift change), Dr. Ibanez, with the patient's 2-hour repeat troponin still pending. Dr. Ibanez to take over care of the patient at this time. - Lab Data Result diagrams: 08/31/24 19:29 08/31/24 19:29 Lab Results 08/31/24 08/31/24 08/31/24 Range/Units 19:29 19: 19:29 WBC 8.79 (4.50-10.00) 10*3/uL RBC 5.42 (4.40-5.60) 10*6/uL Hgb 15.8 (13.0-17.0) g/dL Hct 45.3 (39.6-50.0) % MCV 83.6 (80.0-97.0) fL MCH 29.2 (27.0-32.0) pg MCHC 34.9 (32.0-37.0) g/dL Plt Count 303 (140-440) 10*3/uL MPV 9.2 L (9.5-12.2) fL Immature Gran % (Auto) 0.2 % Neutrophils % 57.6 % Lymphocytes % 32.7 % Monocytes % 7.4 % Eosinophils % 1.8 % Basophils % 0.3 % Immature Gran # 0.02 (0.00-0.04) 10*3/uL Neutrophils # 5.06 (1.80-7.70) 10*3/uL Lymphocytes # 2.87 (0.90-5.00) 10*3/uL Monocytes # 0.65 (0.20-1.00) 10*3/uL Eosinophils # 0.16 (0.04-0.35) 10*3/uL Basophils # 0.03 (0.00-0.10) 10*3/uL PT 10.5 (10.0-12.5) sec INR 0.9 (<1.2) APTT 22.5 (22.0-30.0) sec Sodium 140 (137-145) mmol/L Potassium 3.8 (3.5-5.1) mmol/L Chloride 108 H (98-107) mmol/L Carbon Dioxide 23 (22-30) mmol/L Anion Gap 9 mmol/L BUN 10 (9-20) mg/dL Creatinine 0.81 (0.66-1.25) mg/dL Est GFR (CKD-EPI)AfAm >90 (>60 ml/min/1.73 sqM) Est GFR (CKD-EPI)NonAf >90 (>60 ml/min/1.73 sqM) Glucose 114 H (74-99) mg/dL Calcium 9.0 (8.4-10.2) mg/dL Magnesium 1.9 (1.6-2.3) mg/dL Total Bilirubin 1.0 (0.2-1.3) mg/dL AST 34 (17-59) U/L ALT 32 (4-49) U/L Alkaline Phosphatase 82 (38-126) U/L Troponin I (0.000-0.034) ng/mL NT-Pro-B Natriuret Pep 55 pg/mL Total Protein 6.3 (6.3-8.2) g/dL Albumin 3.8 (3.5-5.0) g/dL 08/31/ Range/Units 19:29 WBC (4.50-10.00) 10*3/uL RBC (4.40-5.60) 10*6/uL Hgb (13.0-17.0) g/dL Hct (39.6-50.0) % MCV (80.0-97.0) fL MCH (27.0-32.0) pg MCHC (32.0-37.0) g/dL Plt Count (140-440) 10*3/uL MPV (9.5-12.2) fL Immature Gran % (Auto) % Neutrophils % % Lymphocytes % % Monocytes % % Eosinophils % % Basophils % % Immature Gran # (0.00-0.04) 10*3/uL Neutrophils # (1.80-7.70) 10*3/uL Lymphocytes # (0.90-5.00) 10*3/uL Monocytes # (0.20-1.00) 10*3/uL Eosinophils # (0.04-0.35) 10*3/uL Basophils # (0.00-0.10) 10*3/uL PT (10.0-12.5) sec INR (<1.2) APTT (22.0-30.0) sec Sodium (137-145) mmol/L Potassium (3.5-5.1) mmol/L Chloride (98-107) mmol/L Carbon Dioxide (22-30) mmol/L Anion Gap mmol/L BUN (9-20) mg/dL Creatinine (0.66-1.25) mg/dL Est GFR (CKD-EPI)AfAm (>60 ml/min/1.73 sqM) Est GFR (CKD-EPI)NonAf (>60 ml/min/1.73 sqM) Glucose (74-99) mg/dL Calcium (8.4-10.2) mg/dL Magnesium (1.6-2.3) mg/dL Total Bilirubin (0.2-1.3) mg/dL AST (17-59) U/L ALT (4-49) U/L Alkaline Phosphatase (38-126) U/L Troponin I <0.012 (0.000-0.034) ng/mL NT-Pro-B Natriuret Pep pg/mL Total Protein (6.3-8.2) g/dL Albumin (3.5-5.0) g/dL - Radiology Data Chest x-ray: No acute cardiopulmonary disease/process. Disposition Clinical Impression: Chest pain Referrals: Sawyer Peters MD [Primary Care Provider] - 1-2 days
[2024-08-31 19:47] LABS: Basophils # (A) 0.03 10*3/uL (0.00-0.10); Basophils % (A) 0.3 %; Eosinophils # (A) 0.16 10*3/uL (0.04-0.35); Eosinophils % (A) 1.8 %; HCT 45.3 % (39.6-50.0); HGB 15.8 g/dL (13.0-17.0); Lymphocytes # (A) 2.87 10*3/uL (0.90-5.00); Lymphocytes % (A) 32.7 %; MCH 29.2 pg (27.0-32.0); MCHC 34.9 g/dL (32.0-37.0); MCV 83.6 fL (80.0-97.0); Mean Platelet Volume 9.2 fL (9.5-12.2); Monocytes # (A) 0.65 10*3/uL (0.20-1.00); Monocytes % (A) 7.4 %; Neutrophils # (A) 5.06 10*3/uL (1.80-7.70); Neutrophils % (A) 57.6 %; Platelet Count 303 10*3/uL (140-440); RBC 5.42 10*6/uL (4.40-5.60); RDW 13.6 % (11.5-14.5); WBC 8.79 10*3/uL (4.50-10.00)
[2024-08-31 19:57] LABS: INR 0.9 (<1.2); Partial Thromboplastin Time 22.5 sec (22.0-30.0); Prothrombin Time 10.5 sec (10.0-12.5)
[2024-08-31 20:00] LABS: ALT 32 U/L (4-49); AST 34 U/L (17-59); African American GFR (CKD) >90 (>60 ml/min/1.73 sqM); Albumin 3.8 g/dL (3.5-5.0); Alkaline Phosphatase 82 U/L (38-126); Anion Gap 9 mmol/L; Blood Urea Nitrogen 10 mg/dL (9-20); Carbon Dioxide 23 mmol/L (22-30); Chloride 108 mmol/L (98-107); Glucose 114 mg/dL (74-99); Magnesium 1.9 mg/dL (1.6-2.3); Non-African American GFR(CKD) >90 (>60 ml/min/1.73 sqM); Potassium 3.8 mmol/L (3.5-5.1); Sodium 140 mmol/L (137-145); Total Protein 6.3 g/dL (6.3-8.2)
[2024-08-31 20:09] LABS: NT-Pro-B-Type Natriuretic Pept 55 pg/mL
--- NOTE | 2024-08-31 20:32 | XR ---
EXAMINATION TYPE: XR chest 2V DATE OF EXAM: 08/31/2024 8:18 PM COMPARISON: Chest radiographs from 08/14/2024 CLINICAL INDICATION: Male, 44 years old with history of Chest Pain; [facility] TECHNIQUE: XR chest 2V Frontal and lateral views of the chest. FINDINGS: Lungs/Pleura: There is no evidence of pleural effusion, focal consolidation, or pneumothorax. Pulmonary vascularity: Unremarkable. Heart/mediastinum: Cardiomediastinal silhouette is unremarkable. Musculoskeletal: No acute osseous pathology. IMPRESSION: No acute cardiopulmonary disease/process. [facility], , 08/31/2024 8:30 PM
[2024-08-31 23:31] VITALS: BP 103/75; PULSE 59; TEMP 98.4
== END 2024-08-31 23:31 ==
LOC: EC 19:13
DX: R07.89 Other chest pain (principal); Z88.8 Allergy status to other drugs, medicaments and biological substances; Z87.891 Personal history of nicotine dependence
CPT/HCPCS: 36415; 71046; 80053; 83735; 83880; 84484; 85025; 85610; 85730; 93005; 99285

== ENCOUNTER 2024-09-05 18:25 | Emergency (ER) | payer MEDICARE ==
[2024-09-05] MEDS: SODIUM CHLORIDE 0.9% 1,000 ML IV SCH (19:00)
[2024-09-05 19:07] LABS: Basophils # (A) 0.04 10*3/uL (0.00-0.10); Basophils % (A) 0.4 %; Eosinophils # (A) 0.17 10*3/uL (0.04-0.35); Eosinophils % (A) 1.6 %; HCT 48.3 % (39.6-50.0); HGB 16.8 g/dL (13.0-17.0); Lymphocytes # (A) 4.37 10*3/uL (0.90-5.00); Lymphocytes % (A) 41.8 %; MCH 29.3 pg (27.0-32.0); MCHC 34.8 g/dL (32.0-37.0); MCV 84.3 fL (80.0-97.0); Monocytes # (A) 0.88 10*3/uL (0.20-1.00); Monocytes % (A) 8.4 %; Neutrophils # (A) 4.98 10*3/uL (1.80-7.70); Neutrophils % (A) 47.6 %; Platelet Count 338 10*3/uL (140-440); RBC 5.73 10*6/uL (4.40-5.60); RDW 13.4 % (11.5-14.5); WBC 10.46 10*3/uL (4.50-10.00)
[2024-09-05 19:18] LABS: ALT 28 U/L (4-49); AST 26 U/L (17-59); African American GFR (CKD) >90 (>60 ml/min/1.73 sqM); Albumin 4.4 g/dL (3.5-5.0); Alkaline Phosphatase 87 U/L (38-126); Anion Gap 11 mmol/L; Blood Urea Nitrogen 16 mg/dL (9-20); Calcium 9.9 mg/dL (8.4-10.2); Carbon Dioxide 27 mmol/L (22-30); Chloride 104 mmol/L (98-107); Glucose 140 mg/dL (74-99); Non-African American GFR(CKD) >90 (>60 ml/min/1.73 sqM); Potassium 4.5 mmol/L (3.5-5.1); Sodium 142 mmol/L (137-145); Total Protein 7.2 g/dL (6.3-8.2)
[2024-09-05 19:21] LABS: INR 0.9 (<1.2); Prothrombin Time 10.2 sec (10.0-12.5)
[2024-09-05 19:24] LABS: Partial Thromboplastin Time 21.0 sec (22.0-30.0)
--- NOTE | 2024-09-05 19:55 | XR ---
EXAMINATION TYPE: XR chest 2V DATE OF EXAM: 09/05/2024 7:43 PM COMPARISON: Multiple radiographs, with the most recent on 08/31/2024 TECHNIQUE: XR chest 2V Frontal and lateral views of the chest. CLINICAL INDICATION:Male, 44 years old with history of syncope; FINDINGS: Lungs/Pleura: There is no evidence of pleural effusion, focal consolidation, or pneumothorax. Chroni c elevation of the right hemidiaphragm. Pulmonary vascularity: Unremarkable. Heart/mediastinum: Cardiomediastinal silhouette is unremarkable. Musculoskeletal: No acute osseous pathology. IMPRESSION: No acute cardiopulmonary disease/process. [facility], , 09/05/2024 7:52 PM
--- NOTE | 2024-09-05 20:31 | ED ---
Dizziness HPI - General Chief Complaint: Syncope Stated Complaint: nausea, exhausted Time Seen by Provider: 09/05/24 19:08 Source: patient Mode of arrival: wheelchair - History of Present Illness Initial Comments: 44-year-old male presenting with chief complaint of dizziness and fatigue. He reports that he has been outside today. He was at a family gathering and he was feeling overheated while laying on the grass. He believes that he passed out for short time. He feels very nauseous and hot. He denies any chest pain. No vomiting. No abdominal pain. Patient was admitted here recently for suspected STEMI, cardiac catheterization showed no significant CAD. - Related Data Previous Rx's Medication Instructions Recorded ARIPiprazole [Abilify] 30 mg PO DAILY 30 Days tab 08/13/24 Gabapentin [Neurontin] 300 mg PO TID 30 Days cap 08/13/24 lamoTRIgine [LaMICtal] 25 mg PO DAILY 30 Days tab 08/13/24 Aspirin 81 mg PO DAILY #30 tab 08/15/24 Atorvastatin [Lipitor] 20 mg PO DAILY #30 tab 08/15/24 Metoprolol Tartrate [Lopressor] 25 mg PO BID #60 tab 08/15/24 Allergies Allergy/AdvReac Type Severity Reaction Status Date / Time quetiapine [From Seroquel] Allergy Unknown Verified 09/05/24 18:38 Review of Systems ROS Statement: Those systems with pertinent positive or pertinent negative responses have been documented in the HPI. ROS Other: All systems not noted in ROS Statement are negative. Past Medical History Past Medical History: Chest Pain / Angina, COPD, Myocardial Infarction (PR), Sleep Apnea/CPAP/BIPAP Additional Past Medical History / Comment(s): Sleep apnea- no cpap used, chronic pain Last Myocardial Infarction Date:: May 2017 History of Any Multi-Drug Resistant Organisms: None Reported Past Surgical History: Heart Catheterization, Heart Catheterization With Stent, Hernia Repair Past Anesthesia/Blood Transfusion Reactions: No Reported Reaction Additional Past Anesthesia/Blood Transfusion Reaction / Comment(s): pt states he has never had a blood transfusion or anesthesia Past Psychological History: Anxiety, Bipolar, Depression, PTSD Smoking Status: Former smoker Past Alcohol Use History: None Reported Past Drug Use History: None Reported, Marijuana - Past Family History Father Family Medical History: No Reported History General Exam General appearance: alert, in no apparent distress Head exam: Present: atraumatic, normocephalic, normal inspection Eye exam: Present: normal appearance, EOMI Neck exam: Present: normal inspection. Absent: meningismus Respiratory exam: Present: normal lung sounds bilaterally. Absent: respiratory distress, wheezes, rales, rhonchi, stridor Cardiovascular Exam: Present: regular rate, normal rhythm, normal heart sounds. Absent: systolic murmur, diastolic murmur, rubs, gallop, clicks Neurological exam: Present: alert, oriented X3 Psychiatric exam: Present: normal affect, normal mood Skin exam: Present: warm, dry, normal color Course Vital Signs 09/05/24 09/05/24 09/05/24 18:33 19:17 19:20 Temperature 98.4 F 98.1 F Pulse Rate 96 82 Respiratory 18 20 Rate Blood Pressure 101/70 115/57 O2 Sat by Pulse 95 93 L 98 Oximetry 09/05/24 20:50 Temperature 98.3 F Pulse Rate 91 Respiratory 16 Rate Blood Pressure 135/56 O2 Sat by Pulse 100 Oximetry Medical Decision Making - Medical Decision Making Was pt. sent in by a medical professional or institution (, PA, HARMONIC ANALYST, urgent care, hospital, or prison...) When possible be specific @ -No Did you speak to anyone other than the patient for history (EMS, parent, family, police, friend...)? What history was obtained from this source @ -No Did you review nursing and triage notes (agree or disagree)? Why? @ -I reviewed and agree with nursing and triage notes Were old charts reviewed (outside hosp., previous admission, EMS record, old EKG, old radiological studies, urgent care reports/EKG's, prison records)? Report findings @ -Reviewed last 2 visits to our facility Differential Diagnosis (chest pain, altered mental status, abdominal pain women, abdominal pain men, vaginal bleeding, weakness, fever, dyspnea, syncope, headache, dizziness, GI bleed, back pain, seizure, CVA, palpatations, mental health, musculoskeletal)? @ -MDM Differential Weakness: Hypoglycemia, shock, sepsis, hyponatremia, anemia, infection, PR, ETOH, adverse medicine reaction, overdose, stroke. ... This is not meant to be an all- inclusive list EKG interpreted by me (3pts min.). @ -Sinus rhythm with sinus arrhythmia and early repolarization. Ventricular rate 77. IN interval 146. QRS 97. QT 380. QTc 412. No significant changes from previous EKG X-rays interpreted by me (1pt min.). @ -Chest x-ray shows no acute findings CT interpreted by me (1pt min.). @ -None done U/S interpreted by me (1pt. min.). @ -None done What testing was considered but not performed or refused? (CT, X-rays, U/S, labs)? Why? @ -None What meds were considered but not given or refused? Why? @ -None Did you discuss the management of the patient with other professionals (professionals i.e. , PA, HARMONIC ANALYST, lab, RT, psych nurse, social worker school, district recruiter, teacher, surveillance sensor officer, case managers)? Give summary @ -No Was smoking cessation discussed for >3mins.? @ -No Was critical care preformed (if so, how long)? @ -No Were there social determinants of health that impacted care today? How? (Homelessness, low income, unemployed, alcoholism, drug addiction, transpor tation, low edu. Level, literacy, decrease access to med. care, senior care, rehab)? @ -No Was there de-escalation of care discussed even if they declined (Discuss DNR or withdrawal of care, Hospice)? DNR status @ -No What co-morbidities impacted this encounter? (DM, HTN, Smoking, COPD, CAD, Cancer, CVA, ARF, Chemo, Hep., AIDS, mental health diagnosis, sleep apnea, morbid obesity)? @ -None Was patient admitted / discharged? Hospital course, mention meds given and route, prescriptions, significant lab abnormalities, going to OR and other pertinent info. @ -44-year-old male presenting chief complaint of feeling very hot, nauseous, dizzy, weak. History and physical examination are conducted. Lab work requires no immediate action. Negative troponin. EKG shows no acute changes from previous. Chest x-ray shows no acute process. Patient was given IV fluids. He is eating and drinking. He feels much better. Suspect heat exhaustion. Follow-up with PCP. Report back to ER with any new or worsening symptoms. Discussed return parameters and answered all questions. Patient conveyed verbal understanding and agreed to the plan. I discussed this case in detail with my attending Dr. Trachy Undiagnosed new problem with uncertain prognosis? @ -No Drug Therapy requiring intensive monitoring for toxicity (Heparin, Nitro, Insulin, Cardizem)? @ -No Were any procedures done? @ -No Diagnosis/symptom? @ -Heat exhaustion Acute, or Chronic, or Acute on Chronic? @ -Acute Uncomplicated (without systemic symptoms) or Complicated (systemic symptoms)? @ -Uncomplicated Side effects of treatment? @ -No Exacerbation, Progression, or Severe Exacerbation? @ -No Poses a threat to life or bodily function? How? (Chest pain, USA, PR, pneumonia, PE, COPD, DKA, ARF, appy, cholecystitis, CVA, Diverticulitis, Homicidal, Suicidal, threat to staff... and all critical care pts) @ -Unlikely - Lab Data Result diagrams: 09/05/24 18:49 09/05/24 18:49 Lab Results 09/05/24 09/05/24 09/05/24 Range/Units 18:49 18:49 18:49 WBC 10.46 H (4.50-10.00) 10*3/uL RBC 5.73 H (4.40-5.60) 10*6/uL Hgb 16.8 (13.0-17.0) g/dL Hct 48.3 (39.6-50.0) % MCV 84.3 (80.0-97.0) fL MCH 29.3 (27.0-32.0) pg MCHC 34.8 (32.0-37.0) g/dL Plt Count 338 (140-440) 10*3/uL MPV 9.4 L (9.5-12.2) fL Immature Gran % (Auto) 0.2 % Neutrophils % 47.6 % Lymphocytes % 41.8 % Monocytes % 8.4 % Eosinophils % 1.6 % Basophils % 0.4 % Immature Gran # 0.02 (0.00-0.04) 10*3/uL Neutrophils # 4.98 (1.80-7.70) 10*3/uL Lymphocytes # 4.37 (0.90-5.00) 10*3/uL Monocytes # 0.88 (0.20-1.00) 10*3/uL Eosinophils # 0.17 (0.04-0.35) 10*3/uL Basophils # 0.04 (0.00-0.10) 10*3/uL PT 10.2 (10.0-12.5) sec INR 0.9 (<1.2) APTT 21.0 L (22.0-30.0) sec Sodium 142 (137-145) mmol/L Potassium 4.5 (3.5-5.1) mmol/L Chloride 104 (98-107) mmol/L Carbon Dioxide 27 (22-30) mmol/L Anion Gap 11 mmol/L BUN 16 (9-20) mg/dL Creatinine 0.97 (0.66-1.25) mg/dL Est GFR (CKD-EPI)AfAm >90 (>60 ml/min/1.73 sqM) Est GFR (CKD-EPI)NonAf >90 (>60 ml/min/1.73 sqM) Glucose 140 H (74-99) mg/dL Plasma Lactic Acid Vidal (0.7-2.0) mmol/L Calcium 9.9 (8.4-10.2) mg/dL Total Bilirubin 1.0 (0.2-1.3) mg/dL AST 26 (17-59) U/L ALT 28 (4-49) U/L Alkaline Phosphatase 87 (38-126) U/L Troponin I (0.000-0.034) ng/mL Total Protein 7.2 (6.3-8.2) g/dL Albumin 4.4 (3.5-5.0) g/dL 09/05/24 09/05/24 Range/Units 18:49 18:49 WBC (4.50-10.00) 10*3/uL RBC (4.40-5.60) 10*6/uL Hgb (13.0-17.0) g/dL Hct (39.6-50.0) % MCV (80.0-97.0) fL MCH (27.0-32.0) pg MCHC (32.0-37.0) g/dL Plt Count (140-440) 10*3/uL MPV (9.5-12.2) fL Immature Gran % (Auto) % Neutrophils % % Lymphocytes % % Monocytes % % Eosinophils % % Basophils % % Immature Gran # (0.00-0.04) 10*3/uL Neutrophils # (1.80-7.70) 10*3/uL Lymphocytes # (0.90-5.00) 10*3/uL Monocytes # (0.20-1.00) 10*3/uL Eosinophils # (0.04-0.35) 10*3/uL Basophils # (0.00-0.10) 10*3/uL PT (10.0-12.5) sec INR (<1.2) APTT (22.0-30.0) sec Sodium (137-145) mmol/L Potassium (3.5-5.1) mmol/L Chloride (98-107) mmol/L Carbon Dioxide (22-30) mmol/L Anion Gap mmol/L BUN (9-20) mg/dL Creatinine (0.66-1.25) mg/dL Est GFR (CKD-EPI)AfAm (>60 ml/min/1.73 sqM) Est GFR (CKD-EPI)NonAf (>60 ml/min/1.73 sqM) Glucose (74-99) mg/dL Plasma Lactic Acid Vidal 1.2 (0.7-2.0) mmol/L Calcium (8.4-10.2) mg/dL Total Bilirubin (0.2-1.3) mg/dL AST (17-59) U/L ALT (4-49) U/L Alkaline Phosphatase (38-126) U/L Troponin I <0.012 (0.000-0.034) ng/mL Total Protein (6.3-8.2) g/dL Albumin (3.5-5.0) g/dL Disposition Clinical Impression: Heat exhaustion Disposition: HOME SELF-CARE Condition: Good Instructions (If sedation given, give patient instructions): Heat Exhaustion (ED) Additional Instructions: Follow-up with PCP. Report back to ER with any new or worsening symptoms. Is patient prescribed a controlled substance at d/c from ED?: No Referrals: Sawyer Peters MD [Primary Care Provider] - 1-2 days Time of Disposition: 20:31
[2024-09-05 20:51] VITALS: BP 135/56; PULSE 91; RESP 16; TEMP 98.3
== END 2024-09-05 21:15 | disposition home or self-care (01) ==
LOC: EC 18:25
DX: T67.5XXA Heat exhaustion, unspecified, initial encounter (principal); Z87.891 Personal history of nicotine dependence; Z88.8 Allergy status to other drugs, medicaments and biological substances
CPT/HCPCS: 36415; 71046; 80053; 83605; 84484; 85025; 85610; 85730; 93005; 96360; 96361; 99285